=== PATIENT | male | born 1945 | race Caucasian/White ===

== ENCOUNTER 2021-01-03 15:29 | Outpatient (CLI) | payer MEDICARE, OTHER, SELFPAY ==
--- NOTE | 2021-01-03 15:45 | USCV_ITS ---
Jude Matson Age: 75 Gender: M : 1945 Exam Date: 01/03/2021 16:06 Ordering Phys: Floridalma Williamson MD ([email or web address]) Technologist: Kitty Keith [place]am [place] [facility] [place]: SOB BP: 148 / 88 HR: 63 Rhythm: Sinus Technical Quality: Adequate MEASUREMENTS (Male / Female) Normal Values 2D ECHO LV Diastolic Diameter PLAX 4.4 cm 4.2 - 5.9 / 3.9 - 5.3 cm LV Systolic Diameter PLAX 3.5 cm IVS Diastolic Thickness 1.6 cm 0.6 - 1.0 / 0.6 - 0.9 cm IVS Systolic Thickness 1.5 cm LVPW Diastolic Thickness 1.7 cm 0.6 - 1.0 / 0.6 - 0.9 cm LVPW Systolic Thickness 1.7 cm LVOT Diameter 2.0 cm LV Ejection Fraction 2D Teich 44.3 % LV Ejection Fraction MOD 2C 62.1 % LV Ejection Fraction 2C AL 63.1 % LA Diameter 3.4 cm LA Width 3.7 cm LA Height 5.6 cm RA Width 3.5 cm RA Height 5.7 cm Aorta at Sinotubular Diameter 2.9 cm DOPPLER AV Peak Velocity 201.0 cm/s LVOT Peak Velocity 96.0 cm/s AV Area Cont Eq vti 1.5 cm squared AV Area Cont Eq pk 1.6 cm squared MV Peak Velocity 126.0 cm/s MV Area PHT 4.2 cm squared Mitral E to A Ratio 0.8 MV E' Velocity 52.0 cm/s Mitral E to MV E' Ratio 13.4 Mitral E to LV E' Lateral Ratio 11.2 Mitral E to LV E' Septal Ratio 16.7 TR Peak Velocity 239.0 cm/s TR Peak Gradient 22.8 mmHg Right Atrial Pressure 3.0 mmHg Pulmonary Artery Systolic Pressu 25.8 mmHg PV Peak Velocity 97.0 cm/s RV Acceleration Time 0.1 s RV Ejection Time 0.3 s RV AcT/ET 0.3 FINDINGS Left Ventricle Moderately increased left ventricular cavity size. Moderately decreased left ventricular systolic function. Global left ventricular hypokinesis. Left ventricular ejection fraction is estimated at 44 %. Grade I/IV diastolic dysfunction (abnormal relaxation filling pattern), normal to mildly elevated filling pressures. Right Ventricle The right ventricle is normal in size and function. Right Atrium The right atrium is normal in size. Left Atrium Moderately increased left atrial size. Mitral Valve Moderately thickened mitral valve. No mitral valve stenosis. Mild-moderate mitral valve regurgitation. Aortic Valve Severe aortic valve calcification. Moderate aortic valve stenosis, mean gradient 8.7 mmHg, NEENA 1.5 cm2 trace aortic valve regurgitation. Tricuspid Valve Mild tricuspid valve regurgitation. Pulmonic Valve Structurally normal pulmonic valve without significant stenosis. There is no pulmonic regurgitation. Pericardium Normal pericardium without effusion. Aorta Normal ascending aorta dimension. CONCLUSIONS 1-Moderately increased left ventricular cavity size. Moderately decreased left ventricular systolic function. Global left ventricular hypokinesis. Left ventricular ejection fraction is estimated at 44 %. Grade I/IV diastolic dysfunction (abnormal relaxation filling pattern), normal to mildly elevated filling pressures. 2-Moderately increased left atrial size. 3-Severe aortic valve calcification. Moderate aortic valve stenosis, mean gradient 8.7 mmHg, NEENA 1.5 cm2 trace aortic valve regurgitation. 4-Moderately thickened mitral valve. No mitral valve stenosis. Mild-moderate mitral valve regurgitation. 5-There is no pericardial effusion. 6-Pulmonary artery systolic pressure is within normal limits. 7-Right atrial pressure is around 10 mm of mercury. 8-When compared to the prior echocardiogram dated 16 July 2018 there is a moderate aortic stenosis now, there is mild to moderate mitral and tricuspid valve regurgitation. Floridalma Williamson MD (Electronically Signed) Final Date: 10 January 2021 21:23 S
== END 2021-01-03 15:30 | disposition home or self-care (01) ==
LOC: RAD 15:31
PROVIDERS: PCP Physician Assistant Medical; Visit Provider Internal Medicine Cardiovascular Disease
DX: I08.0 Rheumatic disorders of both mitral and aortic valves (principal); R06.02 Shortness of breath; R01.1 Cardiac murmur, unspecified
CPT/HCPCS: 93306

== ENCOUNTER → 2022-11-30 09:49 | Outpatient (BNVA) | payer MEDICARE, OTHER, SELFPAY | PROVIDERS: PCP Physician Assistant Medical; Visit Provider Nurse Practitioner Family | DX: S68.121A Partial traumatic metacarpophalangeal amputation of left index finger, initial encounter (principal); X58.XXXA Exposure to other specified factors, initial encounter | CPT/HCPCS: 73140 ==

== ENCOUNTER 2025-02-20 09:40 | Inpatient (IN) | payer MEDICARE, SELFPAY ==
[2025-02-20] VITALS (9 sets, daily range): BP systolic 114–172; BP diastolic 81–122; PULSE 105–112; RESP 18–27; TEMP 36.6–36.8; O2SAT 92–96; BMI 35.2
--- NOTE | 2025-02-20 09:41 | XRR_ITS ---
PROCEDURE INFORMATION: Exam: XR Chest Exam date and time: 02/20/2025 9:57 AM Age: 79 years old Clinical indication: Pain; Angina pectoris; Additional info: Chest pain TECHNIQUE: Imaging protocol: Radiologic exam of the chest. Views: 1 view. COMPARISON: No relevant prior studies available. FINDINGS: Lungs: Bibasilar atelectasis. Pleural spaces: Unremarkable. No pleural effusion. No pneumothorax. Heart/Mediastinum: See Vasculature finding. Vasculature: Mild cardiomegaly and uncoiling of the thoracic aorta. Bones/joints: Unremarkable. XR/XR chest 1V portable [id number] IMPRESSION: Mild bibasilar opacities.
--- OUTSIDE RECORDS SUMMARY | 2025-02-20 09:46 | XMS_ITS | Encounter Summary ---
Author Organization [facility] Address [address] [place] [address] Care Team Providers Care Pig Sticker Name Role Phone Irma Gonzalez MD Primary Care Provider Encounter Details Date Type Department Care Team (Latest Contact Info) Description 03/30/1999 [facility]patient [facility] [address] [place] [address] Julian Valdez, DO [address] [place] [address] Backache, unspecified (Primary Dx); Cervicalgia; Nonallopathic lesion of thoracic region, not elsewhere classified; Nonallopathic lesion of upper extremities, not elsewhere classified Social History Tobacco Use Types Packs/Day Years Used Date Smoking Tobacco: Never Assessed Sex and Gender Information Value Date Recorded Sex Assigned at Not on file 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
--- OUTSIDE RECORDS SUMMARY | 2025-02-20 09:46 | XMS_ITS | Encounter Summary ---
Author Organization [facility] Address [address] [place] [address] Care Team Providers Care Air Pollution Auditor Name Role Phone Irma Gonzalez MD Primary Care Provider Encounter Details Date Type Department Care Team (Latest Contact Info) Description 12/12/[address] 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 Intramedullary dowels present. There is no fracture identified. No significant change is seen from previous x-rays of this antibiotic implant of the right knee. 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
--- OUTSIDE RECORDS SUMMARY | 2025-02-20 09:46 | XMS_ITS | Encounter Summary ---
Author Organization [facility] Address [address] [place] [address] Care Team Providers Care School Bus Driver Name Role Phone Irma Gonzalez MD Primary Care Provider [phone] Reason for Referral * Outpatient Services (Routine) - Closed Specialty Diagnoses / Procedures Referred By Contac t Referred To Contact Diagnoses Knee pain OA (osteoarthritis) of knee Procedures CT LOW EXT WO CONTRAST LEFT Moises Parsons MD [address] [place] [address] Phone: tel: fax: Referral ID Status Reason Start Date Expiration Date Visits Re quested Visits Authorized [id number] Closed 06/28/2012 07/29/2013 1 1 Encounter Details Date Type Department Care Team (Late st Contact Info) Description 06/28/2012 Ancillary Orders [facility] Orthopedics- 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 Exam: CT LOW EXT WO CONTRAST LEFT Date/Time of Exam: Jun 28, 2012 12:42:00 PM Reason For Exam: Pain in joint, lower leg. Technique: CT of the left lower extremity was performed without the administration of intravenous contrast. CT scan of the left lower extremity from the hip to the ankle was performed. This was performed for operative planning for placement of the DePuy TruMatch knee arthroplasty. Marked degenerative changes in the knee joint and a small knee joint effusion are noted. Mild degenerative changes in the hip are identified. No bony destructive lesion or fracture is identified. The soft tissues otherwise have an appropriate appearance. Impression: 1. Left lower extremity CT for surgical planning as above. [email or web address] - uploaded from [employer] - Narrative Procedure Note Fariha Cooley MD - 06/28/2012 IMPRESSION IMPRESSION: See report below. Exam: CT LOW EXT WO CONTRAST LEFT Date/Time of Exam: Jun 28, 2012 12:42:00 PM Reason For Exam: Pain in joint, lower leg. Technique: CT of the left lower extremity was performed without the administration of intravenous contrast. CT scan of the left lower extremity from the hip to the ankle was performed. This was performed for operative planning for placement of the DePuy TruMatch knee arthroplasty. Marked degenerative changes in the knee joint and a small knee joint effusion are noted. Mild degenerative changes in the hip are identified. No bony destructive lesion or fracture is identified. The soft tissues otherwise have an appropriate appearance. Impression: 1. Left lower extremity CT for surgical planning as above. [email or web address] - uploaded from [employer] - us Moises Parsons MD CT ORDERABLES Final Result documented in this encounter Visit Diagnoses Diagnosis Knee pain Pain in joint, lower leg OA (osteoarthritis) of knee Osteoarthrosis, unspecified whether generalized or localized, lower leg Knee pain- Primary Pain in joint, lower leg OA (osteoarthritis) of knee Osteoarthrosis, unspecified whether generalized or localized, lower leg documented in this encounter Care Teams School Bus Driver Relationship Specialty Start Date End Date Irma Gonzalez MD [address] [phone] PCP - General Family Practice 07/01/18 documented as of this encounter
--- OUTSIDE RECORDS SUMMARY | 2025-02-20 09:46 | XMS_ITS | Clinical Summary ---
Author Organization [facility] Address [address] [place] [address] Care Team Providers Care Vice President Payer Name Role Phone Michael Iglesias MD Primary Care Provider [phone] Allergies No known active allergies Medications albuterol sulfate HFA 90 mcg/actuation aerosol inhalerIndication s:Pulmonary emphysema, unspecified emphysema type Take 2 Puffs by inhalation every 6 hours as needed for Shortness of Breath or Wheezing. 8.5 Gram 7 4 Active fluticasone furoate-vilantero L (BREO ELLIPTA) 100-25 mcg/dose Disk with DeviceIndications :Pulmonary emphysema, unspecified emphysema type Take 1 Puff by inhalation daily. 1 Each 6 4 Active spironolactone (ALDACTONE) 25 mg tabletIndications :Acute congestive heart failure, unspecified heart failure type (CMS/HCC) Take 1 Tablet (25 mg) by mouth daily. 90 Tablet 3 4 Active doxycycline (MONODOX) 100 mg Capsule Take 100 mg by mouth daily. Active metoprolol tartrate (LOPRESSOR) 50 mg tabletIndications :Paroxysmal A-fib (CMS/HCC),Essenti al hypertension Take 1 Tablet (50 mg) by mouth 2 times daily. 180 Tablet 3 5 Active rivaroxaban (Xarelto) 20 mg TabletIndications :Paroxysmal A-fib (CMS/HCC) Take 1 Tablet (20 mg) by mouth daily. 90 Tablet 3 5 Active doxycycline hyclate (VIBRAMYCIN) 100 mg tabletIndications :Infected prosthetic knee joint, subsequent encounter,correction (current) use of antibiotics Take 1 Tablet (100 mg) by mouth daily. 90 Tablet 1 5 Active lisinopriL (PRINIVIL) 20 mg tabletIndications :Essential hypertension TAKE 1 TABLET BY MOUTH TWICE DAILY 200 Tablet 3 Active Hospital, Clinic, or Other Facility Administered Medication Ordered Dose Route Frequency Start Date End Date Status sodium chloride flush injection 10 mLIndications:Paroxy smal atrial fibrillation with rapid ventricular response (CMS/HCC) 10 mL IV SEE ADMIN INSTRUCTIONS 11/21/2024 Active sodium chloride flush injection 10 mLIndications:Paroxy smal atrial fibrillation with rapid ventricular response (CMS/HCC) 10 mL IV SEE ADMIN INSTRUCTIONS 11/21/2024 Active Active Problems Problem Noted Date Diagnosed Date Paroxysmal A-fib 12/01/2018 Infected prosthetic knee joint, subsequent encou nter 2018 Obesity (BMI 30.0-34.9) 11/20/2018 Anemia 11/20/2018 Onychomycosis 05/05/2015 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 06/12/2014 06/12/2014 Preoperative general physical examination 2012 Left TKA- DePuy TruMatch 08/07/2012 08/08/2012 Elevated PSA 04/20/2011 Essential hypertension GERD (gastroesophageal reflux disease) MSSA (methicillin susceptibl e Staphylococcus aureus) infection Resolved Problems Problem Noted Date Diagnosed Date Resolved Date Primary osteoarthritis of knee 02/24/2013 09/11/2019 Knee pain 06/20/2012 05/05/2015 Empyema 12/25/2011 10/14/2014 Joint pain 05/05/2015 Arthropathy, unspecified, site unspecified 05/05/2015 MRSA (methicillin resistant Staphylococcus aureus) 02/09/2016 Prostate cancer 11/21/2024 Encounters Date Type Department Care Team Description 01/14/2025 External Device Data [facility] ABSTRACTION Provider, Abstract 01/13/2025 External Device Data [facility] ABSTRACTION Provider, Abstract 12/30/2024 External Device Data [facility] ABSTRACTION Provider, Abstract 12/19/2024 Refill [facility] [address] [address] Sadie Peña FNP Essential hypertension 12/17/2024 Orders Only [facility] [address] [address] Sadie Peña FNP 12/16/2024 External Device Data [facility] ABSTRACTION Provider, Abstract 12/09/2024 External Device Data [facility] ABSTRACTION Provider, Abstract 12/09/2024 External Device Data [facility] ABSTRACTION Provider, Abstract 11/26/2024 External Device Data [facility] ABSTRACTION Provider, Abstract 11/25/2024 External Device Data [facility] ABSTRACTION Provider, Abstract 11/25/2024 External Device Data [facility] ABSTRACTION Provider, Abstract 11/25/2024 External Device Data [facility] ABSTRACTION Provider, Abstract 11/21/2024 9:15 AM CDT - 11/21/2024 11:59 PM CDT Hospital Encounter [facility] [place] [address] [facility] [address] [place] [address] Colt Zhu MD Discharge Disposition: Home or Self Care 11/21/2024 8:20 AM CDT Office Visit [address] [address] Sadie Peña FNP Medicare annual wellness visit, subsequent (Primary Dx); Pulmonary emphysema, unspecified emphysema type (CMS/HCC); Paroxysmal A-fib (CMS/HCC); Essential hypertension; Dyspnea on exertion; Infected prosthetic knee joint, subsequent encounter; 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; Paroxysmal atrial fibrillation with rapid ventricular response (CMS/HCC); History of prostate cancer from Last 3 Months Immunizations Immunization Administration Dates Next Due (TDVAX)(7 YRS UP) TETANUS AN D DIPHTHERIA TOXOIDS, ADSORBED (2 LF OF TETANUS TOXOID AND 2 LF OF DIPHTHERIA TOXOID), 0.5ML (PF), IM 04/21/2005 Influenza Vaccine Split 3+ Yrs PF IM 02/26/2013 Pneumococcal conjugate, unspecified formulation 01/08/2012 Family History Medical History Relation Name Comments Other Brother 1 Healthy Brother 2 Healthy Brother 3 Healthy Daughter 1 Healthy Daughter 2 Dementia Father Heart Disease Mother Irish Matson Healthy Sister 1 Healthy Sister 2 Healthy Son Relation Name Status Comments Brother 1 Construction ac cident Brother 2 Alive Brother 3 Alive Daughter 1 Alive Daughter 2 Alive Father (Age 89) Mother Irish Matson (Age 84) Sister 1 Alive Sister 2 Alive Son Alive Social History Tobacco Use Types Packs/Day Years Used Date Smoking Tobacco: Never Smokeless Tobacco: Never Tobacco Cessation:Counseling Given: No Alcohol Use Standard Drinks/Week Comments Yes 2 (1 standard drink = 0.6 oz pur e alcohol) Feeling Safe Answer Date Recorded Within the last year, have y ou been afraid of your partner or ex-partner? No 11/25/2019 Within the last year, have y ou been humiliated or emotionally abused in other ways by your partner or ex-partner? No Within the last year, have y ou been kicked, hit, slapped, or otherwise physically hurt by your partner or ex-partner? No 11/25/2019 Within the last year, have y ou been raped or forced to have any kind of sexual activity by your partner or ex-partner? No 11/25/2019 Social Connections Answer Date Recorded In a typical week, how many times do you talk on the phone with family, friends, or neighbors? More than three times a week 11/25/2019 How often do you get togethe r with friends or relatives? More than three times a week 11/25/2019 How often do you attend [facility] or advent services? More than 4 times per year 11/25/2019 Do you belong to any clubs o r organizations such as oriental orthodox groups, unions, fraternal or athletic groups, or school groups? No 11/25/2019 Attends Club or Organization Meetings Not on desmond e 11/25/2019 Marital Status Not on file 11/25/2019 Financial Resource Strain Answer Date R ecorded How hard is it for you to pa y for the very basics like food, housing, medical care, and heating? Not hard at all 05/24/2021 Food Insecurity Answer Date Recorded In the past 12 months, have you worried that your food would run out before you had money to buy more? Never true 05/24/2021 In the past 12 months, did y ou run out of food and didn't have money to buy more? Never true 05/24/2021 Transportation Needs Answer Date Record ed In the past 12 months, has l ack of transportation kept you from medical appointments or from getting medications? No 05/24/2021 Lack of Transportation (Non-Medical) Not on file 05/24/2021 Feeling Safe Answer Date Recorded Are you in a relationship wi th someone who hurts you emotionally and/or physically? 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 Gender Identity Not on file Sexual Orientation Not on file Last Filed Vital Signs Vital Sign Reading Time Taken Comments Blood Pressure 134/62 11/21/2024 8:12 AM CDT Pulse 125 11/21/2024 9:17 AM CDT Temperature 36.4 C (97.5 F) 11/21/2024 8:12 AM CDT Respiratory Rate 20 11/21/2024 8:12 AM CDT Oxygen Saturation 97% 11/21/2024 8:12 AM CDT Inhaled Oxygen Concentration - - Weight 111.4 kg (245 lb 8 oz) 11/21/2024 8:12 AM CDT Height 182.9 cm (6') 11/21/2024 8:12 AM CDT Body Mass Index 33.3 11/21/2024 8:12 AM CDT Plan of Treatment Upcoming Encounters Date Type Department Care Team (Late st Contact Info) Description 03/06/2025 1:00 PM ORTHODONTIST SMALL BUSINESS OWNER Office Visit [facility] [address] [place] [address] Maryanne Chaney, [place] [address] [facility] [address] [place] [address] 03/31/2025 9:40 AM ORTHODONTIST SMALL BUSINESS OWNER Office Visit [facility] [address] [facility] [address] [place] [address] Jelena Escoto, DIGITAL PERFORMANCE ANALYST [address] [facility] [address] [place] [address] 05/25/2025 8:00 AM ORTHODONTIST SMALL BUSINESS OWNER Office Visit [facility] [address] [place] [address] Michael Iglesias MD [address] [place] [phone] 05/26/2025 8:20 AM ORTHODONTIST SMALL BUSINESS OWNER Office Visit [facility] [address] [place] [address] Sadie Peña, [facility] [address] [place] [address] 11/23/2025 8:20 AM CDT Office Visit [facility] [address] [place] [address] Sadie Peña, [facility] [address] [place] [address] Health Maintenance Due Date Last Done Comments PNEUMOCOCCAL VACCINE 50+ YEA RS (1 of 2 - PCV) 11/26/1962 01/08/2012 ZOSTER VACCINE (1 of 2) 11/26/1993 DTAP/TDAP/TD VACCINES (1 - Tdap) 04/22/2005 04/21/19 06 RSV VACCINE (60+ or ) (1 - 1-dose 75+ series) 11/26/2018 INFLUENZA VACCINE (#1) 2024 3, 05/24/2021, 07/06/2020, Additional history exists Traditional Medicare (ACO) A nnual Wellness Visit 11/22/2025 11/21/2024, 11/20/2023, 11/16/2022, Additional history exists Medical Devices Implanted Type Area Fur Ironer Device Identifier Shelf Expiration Date Model / Serial / Lot Cement Palacos R+G [id number] - Sna Implanted:Qty: 2 on 08/07/2012 by Moiess Parsons MD Cement Left: Knee [employer] 01/23/2016 61-8227-790- 01 / NA / [id number] Cement Simplex Hvisc 6194-1-010 - [id number] Implanted:08/24 by Ramón Lopes MD (Quantity not on file) Cement Right: Knee [employer] [id number] 10/23/2020 6194-1-010 / / [id number] Cement Simplex Hvisc 6194-1-010 - [id number] Implanted:08/24 by Ramón Lopes MD (Quantity not on file) Cement Right: Knee [employer] [id number] 10/23/2020 6194- / / [id number] Comp Tib Sigma Cocr Sz4 1581-40-000 - [id number] Implanted:Qty: 1 on 08/07/2012 by Moises Parsons MD Knee Left: Knee J[employer] 01/24/2021 1581-40-000 / / [id number] Patella Dome 3peg 41mm 96-0103 - [id number] Implanted:Qty: 1 on 08/07/2012 by Moises Parsons MD Knee Left: Knee [employer] 03/26/2016 96-0103 / / [id number] Augment Fem Attune Dist Sz8 4mm 1547-08-001 - [id number] Implanted:Qty: 1 on 09/12/2019 by Ramón Lopes MD Knee Right: Knee [employer] [id number] 03/25/2029 [id number] / / [id number] Augment Fem Attune Dist Sz8 4mm 1547-08-001 - [id number] Implanted:Qty: 1 on 09/12/2019 by Ramón Lopes MD Knee Right: Knee [employer] [id number] 08/23/2028 [id number] / / [id number] Augment Fem Attune Post Sz8 4mm Rev 1549-08-001 - [id number] Implanted:Qty: 1 on 09/12/2019 by Ramón oLpes MD Knee Right: Knee [employer] [id number] 03/25/2029 [id number] / / [id number] Augment Fem Attune Post Sz8 4mm Rev 1549-08-001 - [id number] Implanted:Qty: 1 on 09/12/2019 by Ramón Lopes MD Knee Right: Knee [employer] [id number] 03/25/2029 [id number] / / [id number] Baseplate Tib Attune Rev Sz6 1506-60-006 - [id number] Implanted:Qty: 1 on 09/12/2019 by Ramón Lopes MD Knee Right: Knee [employer] [id number] 12/23/2028 1506-60-006 / / [id number] Comp Fem Attune Rev Sz8 Rt 1504-40-208 - [id number] Implanted:Qty: 1 on 09/12/2019 by Ramón Lopes MD Knee Right: Knee [employer] [id number] 12/23/2026 [id number] / / [id number] Sleeve Fem Attune Full Por 45mm 151 - [id number] Implanted:Qty: 1 on 09/12/2019 by Ramón Lopes MD Knee Right: Knee [employer] [id number] 07/23/2029 / / [id number] Sleeve Fem Attune Rev 40mm - [id number] Implanted:Qty: 1 on 09/12/2019 by Ramón Lopes MD Knee Right: Knee [employer] [id number] 07/23/2029 151 / / [id number] Stem Fem Attune 77x608sp Pf 1513-16-110 - [id number] Implanted:Qty: 1 on 09/12/2019 by Ramón Lopes MD Knee Right: Knee [employer] [id number] 07/23/2029 [id number] / / [id number] Stem Fem Attune 50z818wk Pf 1513-16-110 - [id number] Implanted:Qty: 1 on 09/12/2019 by Ramón Lopes MD Knee Right: Knee [employer] [id number] 08/23/2029 [id number] / / [id number] Tibial Insert Fixed Bearing Stabilized 4, 10mm Implanted:Qty: 1 on 08/07/2012 by Moises Parsons MD Other Left: Knee [employer] 01/25/2016 1581-24-110 / / [id number] Description:P.F.C SIGMA Femoral Posterior Stabilized Cemented Size 5 Left Implanted:Qty: 1 on 08/07/2012 by Moises Parsons MD Left: Knee [employer] 02/23/20211959-40-500 / / [id number] Sigma Femoral Posterior Stabilized Cemented Sz. 5 Implanted:Qty: 1 on 02/24/2013 by Moises Parsons MD Right: Knee [employer] 07/24/2022 REF: 1960-50-500 / / [id number] Revision Crs Rot 8x14mm Implanted:Qty: 1 on 09/12/2019 by Ramón Lopes MD Right: Knee 04/25/2022 [facility] - 1517-10-814 / / [id number] Explanted Type Area Fur Ironer Device Identifier Shelf Expiration Date Model / Serial / Lot Cement Palacos R+G [id number] - [id number] Implanted:Qty: 1 on 02/24/2013 Explanted:Qty: 1 on 11/29/2018 by Moises Parsons MD Cement Right: Knee [employer] 08/24/2016 65-3237-658- 01 / / [id number] Cement Palacos R+G 96-8808-440-01 - [id number] Implanted:Qty: 1 on 02/24/2013 Explanted:Qty: 1 on 09/12/2019 Cement Right: Knee [employer] 03/26/201628-1200-873- 01 / / [id number] Simplex Hi Viscosity Gent 6195-1-010 - [id number] Implanted:Qty: 3 on 11/29/2018 by Moises Parsons MD Explanted:Qty: 3 on 09/12/2019 Cement Right: Knee [employer] 12/24/2019 6195-1-010 / / [id number] Guide Pin Explanted:Qty: 1 on 08/07/2012 by Moises Parsons MD Knee Left: Knee SIGMA DX 11/23/2012 [id number] / NA / [id number] Comp Tib Sigma Cocr Sz5 1581-50-000 - [id number] Implanted:Qty: 1 on 02/24/2013 Explanted:Qty: 1 on 11/29/2018 by Moises Parsons MD Knee Right: Knee J[employer] 11/24/2021 1581-50-000 / / [id number] Ins Tib Sigma Fbs+ Sz5 96-2755 - [id number] Implanted:Qty: 1 on 06/12/2014 by Moises Parsons MD Explanted:Qty: 1 on 11/29/2018 by Moises Parsons MD Knee Right: Knee J[employer] 10/24/2017 [id number] / / [id number] Comp Fem Sigma Ps Recooperer Sz5 1960-50-500 - [id number] Implanted:Qty: 1 on 11/29/2018 by Moises Parsons MD Explanted:Qty: 1 on 09/12/2019 Knee Right: Knee J[employer] 09/22/2028 [id number] / / [id number] Ins Tib Sigma Fbs+ Sz4 96-2740 - [id number] Implanted:Qty: 1 on 06/12/2014 by Moises Parsons MD Explanted:Qty: 1 on 09/12/2019 Knee Knee J&J- [employer] 11/24/2017 385108 / / [id number] Stimulan Caso4 Kt 10ml 620-010 - [id number] Implanted:Qty: 1 on 11/29/2018 by Moises Parsons MD Explanted:Qty: 1 on 09/12/2019 Tissue Right: Knee [employer] 06/23/2020 620-010 / / [id number] P.F.C. Sigma Tibial Insert Fixed Bearing Stabilized Plus Implanted:Qty: 1 on 02/24/2013 by Moises Parsons MD Explanted:Qty: 1 on 06/12/2014 by Moises Parsons MD Right: Knee [employer] 01/24/2017 REF: 96-2755 / / [id number] Oval Dome Patella 3-Peg Implanted:Qty: 1 on 02/24/2013 by Moises Parsons MD Explanted:Qty: 1 on 11/29/2018 by Moises Parsons MD Right: Knee 07/24/2022 REF: 96-0103 / / [id number] Tibial Insert Roating Platform Stabilized Implanted:Qty: 1 on 11/29/2018 by Moises Parsons MD Explanted:Qty: 1 on 09/12/2019 Right: Knee 06/23/2020 96-2157 / / [id number] Procedures Procedure Name Priority Date/Time Associated Diagnosis Comments REFERENCE LAB PROCESSING FEE Routine 11/21/2024 9:26 AM CDT SOB (shortness of breath) from Last 3 Months Results * REFERENCE LAB PROCESSING FEE (11/21/2024 9:26 AM CDT) REFERENCE LAB SENDOUT Sent to Ref Lab 11/21/2024 12:02 PM CDT [facility] Other, specify BLOOD SPECIMEN / Unknown Collection / Unknown 11/21/2024 9:26 AM CDT 11/21/2024 10:34 AM CDT Colt Zhu MD CHEMISTRY ORDERABLES Fi nal Result [facility] CLIA # [id number] [address] [place] [address] from Last 3 Months Insurance MEDICARE PART A AND B [employer] SUPP * Guarantor: JACQUELINE MATSON Account Type Relation to Patient Date of Phone Billing Address Personal/Family [address] [place] [address] [facility] Commercial Advance Directives For more information, please contact: [phone] * Full Code (Latest Code Status on File) Date Activated Date Inactivated Comments 11/20/2023 8:29 AM Care Teams Vice President Payer Relationship Specialty Start Date End Date Michael Iglesias MD [address] [address] PCP - General Family Practice 11/16/22
--- OUTSIDE RECORDS SUMMARY | 2025-02-20 09:46 | XMS_ITS | Encounter Summary ---
Author Organization [facility] Address [address] [place] [address] Care Team Providers Care Arch Support Technician Name Role Phone Irma Gonzalez MD Primary Care Provider [phone]- [phone] Encounter Details Date Type Department Care Team (Latest Contact Info) Description 09/03/2000 Outpatient Historical [facility]- [address] [phone] Vince Ibarra DO NO ADDRESS ON FILE Urticaria, unspecified (Primary Dx) Social History Tobacco Use Types Packs/Day Years Used Date Smoking Tobacco: Never Assessed Sex and Gender Information Value Date Recorded Sex Assigned at Not on file Legal Sex 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
--- OUTSIDE RECORDS SUMMARY | 2025-02-20 09:46 | XMS_ITS | Clinical Summary ---
Author Organization [facility] [place] [facility] Address [address] [place] [address] Care Team Providers Care Recreational Counselor Name Role Phone Sadie Peña NP Primary Care Provider +1 [phone] Allergies No known active allergies Medications doxycycline monohydrate (MONODOX) 100 mg capsule Take 1 capsule (100 mg total) by mouth daily 5 Active lisinopriL (PRINIVIL,ZESTRI L) 20 mg tablet Take 1 tablet (20 mg total) by mouth 2 (two) times a day 5 Active metoprolol tartrate (LOPRESSOR) 25 mg immediate release tablet Take 1 tablet (25 mg total) by mouth 2 (two) times a day 5 Active Xarelto 20 mg tablet Take 1 tablet (20 mg total) by mouth daily 5 Active spironolactone (ALDACTONE) 25 mg tablet Take 1 tablet (25 mg total) by mouth daily 5 Active albuterol HFA (PROVENTIL HFA,VENTOLIN HFA,PROAIR HFA) 90 mcg/actuation inhaler Inhale 2 puffs every 6 (six) hours as needed for wheezing 1 each 3 5 Active doxycycline 100 mg tablet Take 1 Tablet (100 mg) by mouth daily. 5 Active Breztri Aerosphere 160-9-4.8 mcg/actuation inhaler Inhale 2 puffs 2 (two) times a day Rinse mouth after use 3 each 11 5 Active Active Problems Problem Noted Date Diagnosed Date Snoring 12/10/2024 Assessment & Plan (12/10/2024 2:44 PM CDT): The patient presents with snoring and excessive daytime hypersomnia. I did recommend an in-lab nocturnal polysomnogram with a split night protocol if necessary and no MSLT. The patient lives [place] near [facility] and wants to seek a sleep physician in that area. I did recommend that he contact his primary care provider for a referral to a sleep physician in that area. I did tell him I would be happy to follow him has a sleep patient if he wants to continue to see me. 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 He will follow up with me on a PRN basis. Essential hypertension 10/14/2024 GERD (gastroesophageal reflux disease) Prostate cancer 10/14/2024 Paroxysmal A-fib 12/01/2018 Anemia 11/20/2018 Onychomycosis 05/05/2015 Osteoarthritis of left knee 08/08/2012 Encounters Date Type Department Care Team Description 12/10/2024 2:30 PM CDT Office Visit [facility] [address] [place] [phone] Jesus Manuel Michelle MD Snoring (Primary Dx) 12/10/2024 1:45 PM CDT Office Visit [facility] [address] [place] [address] [place] [phone] Colt Zhu MD SOB (shortness of breath) (Primary Dx); Snoring; Non-smoker; Pulmonary emphysema, unspecified emphysema type (HCC) 12/10/2024 9:15 AM CDT - 12/10/2024 11:59 PM CDT Hospital Encounter [facility] [address] [place] [phone] SOB (shortness of breath) Discharge Disposition: Discharge to home or self care 12/04/2024 Orders Only [facility] [address] [place] [phone] Colt Zhu MD 11/25/2024 Orders Only [facility] [address] [facility] [address] [place] [address] Colt Zhu MD from Last 3 Months Surgical History Surgery Date Site/Laterality Comments TOTAL KNEE ARTHROPLASTY 03/26/2019 - 03/25/2020 Right TOTAL KNEE ARTHROPLASTY Left BACK SURGERY 03/26/1969 - 03/25/1970 PROSTATE SURGERY Medical History Medical History Date Comments Atrial fibrillation (HCC) Chronic anticoagulation Hypertension Non Hodgkin's lymphoma (HCC) Prostate CA MSSA (methicillin susceptible Staphylococcus aur eus) GERD (gastroesophageal reflux disease) Arthritis Obesity Social History Tobacco Use Types Packs/Day Years Used Date Smoking Tobacco: Never Smokeless Tobacco: Never Tobacco Cessation:Counseling Given: Not Answered Personal Safety Answer Date Recorded Have you ever been in or are you currently in a harmful physical or emotional relationship or is someone making you feel afraid or unsafe? Denies 10/14/2024 Sex and Gender Information Value Date Recorded Sex Assigned at Not on file Legal Sex Male 8:35 AM CDT Gender Identity Not on file Sexual Orientation Not on file Last Filed Vital Signs Vital Sign Reading Time Taken Comments Blood Pressure 113/76 12/10/2024 2:00 PM CDT Pulse 131 12/10/2024 2:00 PM CDT Temperature 35.9 C (96.7 F) 12/10/2024 2:00 PM CDT Respiratory Rate 18 12/10/2024 2:00 PM CDT Oxygen Saturation 97% 12/10/2024 2:00 PM CDT Inhaled Oxygen Concentration - - Weight 112 kg (247 lb) 12/10/2024 2:00 PM CDT Height 182.9 cm (6') 12/10/2024 2:00 PM CDT Body Mass Index 33.5 12/10/2024 2:00 PM CDT Plan of Treatment Health Maintenance Due Date Last Done Comments Depression Screening 1945 Fall Risk Assessment 1945 Hepatitis B Screening 11/26/1961 Zoster Vaccine (1 of 2) 11/26/1993 DTaP/Tdap/Td Vaccine (1 - Tdap) 04/22/2005 6 Well Visit 65+ 11/26/2008 Pneumococcal vaccine 65+ (2 of 2 - PPSV23, PCV20, or PCV21) 03/04/2012 01/08/2012 Influenza Vaccine (#1) 2024 02/26/2013 Procedures Procedure Name Priority Date/Time Associated Diagnosis Comments PULMONARY FUNCTION TEST (PFT) Routine 12/10/2024 10:30 AM CDT SOB (shortness of breath) IMMUNOGLOBULIN E Routine 12/04/2024 10:0 6 AM CDT CLIENT EDUCATION TRACKING Routine 12/04/2024 10:06 AM CDT [id number] Routine 12/04/2024 1 0:06 AM CDT CBC WITH AUTO DIFFERENTIAL Routine 12/04/2024 10:06 AM CDT BASIC METABOLIC PANEL Routine 12/04/2024 10:06 AM CDT CLIENT EDUCATION TRACKING Routine 11/25/2024 7:24 PM CDT PRO B-TYPE NATRIURETIC PEPTIDE Routine 11/25/2024 7:24 PM CDT from Last 3 Months Results * Pulmonary Function Test - (12/10/2024 10:30 AM CDT) FVC POST 2.85 L 12/10/2024 11:12 AM CDT [facility] FEV1 POST 1.78 L 12/10/2024 11:12 AM CDT [facility] [id number] 62.64 % 12/10/2024 11:12 AM CDT [facility] HGZ00-16% POST 0.73 L/s 12/10/2024 11:12 AM CDT [facility] PEF POST 7.02 L/s 12/10/2024 11:12 AM CDT [facility] DLCOc SB 17.22 ml/(min*mm Hg) 12/10/2024 11:12 AM CDT [facility] DLCOc SB 17.47 ml/(min*mm Hg) 12/10/2024 11:12 AM CDT [facility] DLCO/VA PRE 3.87 ml/(min*mm Hg*L) 12/10/2024 11:12 AM CDT [facility] VA 4.46 L 12/10/2024 11:12 AM CDT [facility] TLC PRE 4.45 L 12/10/2024 11:12 AM CDT [facility] VC PRE 2.95 L 12/10/2024 11:12 AM CDT [facility] IC PRE 2.35 L 12/10/2024 11:12 AM CDT [facility] FRC PL PRE 2.08 L 12/10/2024 11:12 AM CDT [facility] ERV PRE 0.58 L 12/10/2024 11:12 AM CDT [facility] RV PRE 1.50 L 12/10/2024 11:12 AM CDT [facility] RAW PRE 6.80 cmH2O*s/L 12/10/2024 11:12 AM CDT [facility] VTG 3.10 L 12/10/2024 11:12 AM CDT [facility] FVC PRE 2.95 L 12/10/2024 11:12 AM CDT [facility] FEV1 PRE 1.69 L 12/10/2024 11:12 AM T [facility] [id number] 57.14 % 12/10/2024 11:12 AM CDT [facility] VIM18-74% PRE 0.47 L/s 12/10/2024 11:12 AM T [facility] PEF PRE 4.43 L/s 12/10/2024 11:12 AM T [facility] Anatomical Region Laterality Modality PFT 12/10/2024 9:47 AM CDT Impressions 12/11/2024 8:13 AM CDT 1. Irod-pd-tmyfezac obstructive ventilatory limitation with concomitant severe restriction 2. Pcvd-kt-oaejnivt diffusion impairment 3. During a 6 minute walk test the patient ambulated 830 ft on ambient air with lowest oxygen saturation of 99% Electronically signed by Valente Vidal MD Pulmonary & Critical Care Narrative 12/11/2024 8:13 AM CDT PULMONARY FUNCTION TESTS Jude Matson 79 y.o. 12/11/2024 INTERPRETATION Please see technologist's comments mentioned in attached results report. SPIROMETRY: Pre bronchodilator FEV1 is 56 % predicted, FVC is 71 % predicted, FEV1/FVC is 0.57 Bronchodilator response: No Inspection of the patient's flow-volume loops shows: Scooping of the expiratory limb. Otherwise normal configuration of the inspiratory and expiratory limbs. LUNG VOLUMES: Lung volumes by body plethysmography: TLC is 59 % predicted, RV is 51 % predicted DLCO: Unadjusted for hemoglobin and carboxyhemoglobin DLCO is 64 % predicted. Adjusted for hemoglobin DLCO is 65% predicted Colt Zhu MD PFT ORDERABLES Final Result * Client Education Tracking (12/04/2024 10:06 AM CDT) Client Education Tracking [facility] Comment: The Requisition we received did not include a [facility] account number. To prevent delays in testing and processing of your orders please provide the following information with every order submitted: [facility] account number and account name Client address Client phone and fax number NPI number of ordering physician along with the physician name. 11/22/2024 8:1 5 AM CDT Narrative [facility] - 12/04/2024 10:06 AM CDT FASTING: NO Colt Zhu MD LAB BLOOD ORDERABLES Final R esult [facility] [address] [place] [address] * IgE, quantitative, serum - immunoglobulin E (12/04/2024 10:06 AM CDT) Immunoglobulin E 81 <AB=491 kU/L [facility] Comment: NO COLLECTION DATE RECEIVED. WE HAVE USED THE DATE THE SPECIMEN WAS RECEIVED BY THIS LABORATORY THE COLLECTION DATE. IF THIS IS INCORRECT, PLEASE CONTACT CLIENT SERVICES. PHONE NUMBER: [phone] 11/22/2024 8:1 5 AM CDT Narrative [facility] - 12/04/2024 10:06 AM CDT FASTING: NO us Colt Zhu MD LAB BLOOD ORDERABLES Final R esult [facility] [address] [phone] * (ABNORMAL) CBC with auto differential (12/04/2024 10:06 AM CDT) WBC 6.1 3.8 - 10.8 Thousand/u L [facility] RBC, POC 3.95(L) 4.20 - 5.80 Million/uL [facility] Hgb 14.1 13.2 - 17.1 g/dL [facility] Hct 43.3 38.5 - 50.0 % [facility] MCV 109.6(H) 80.0 - 100.0 fL [facility] MCH 35.7(H) 27.0 - 33.0 pg [facility] MCHC 32.6 32.0 - 36.0 g/dL [facility] Comment: For adults, a slight decrease in the calculated MCHC value (in the range of 30 to 32 g/dL) is most likely not clinically significant; however, it should be interpreted with caution in correlation with other red cell parameters and the patient's clinical condition. Rdw 12.3 11.0 - 15.0 % [facility] Platelets 279 140 - 400 Thousand/u L [facility] MPV 11.8 7.5 - 12.5 fL [facility] Neutrophils, abs 3,800 1,500 - 7,800 cells/uL [facility] Lymphocytes, abs 1,074 850 - 3,900 cells/uL [facility] Monocyte abs 738 200 - 950 cells/uL [facility] Eosinophils, abs 427 15 - 500 cells/uL [facility] Basophils, abs 61 0 - 200 cells/uL [facility] Neutrophils 62.3 % [facility] Lymphocyte pct 17.6 % [facility] Monocytes 12.1 % [facility] Eosinophils 7.0 % [facility] Basophils 1.0 % [facility] 11/22/2024 8:1 5 AM CDT Narrative [facility] - 12/04/2024 10:06 AM CDT FASTING: NO Colt Zhu MD LAB BLOOD ORDERABLES Final R esult Performing Organization Address [facility] Co de Phone Number [facility] [address] [place] [address] * [id number] (12/04/2024 10:06 AM CDT) alpha-1 antitrypsin 125 83 - 199 mg/dL [facility] 11/22/2024 8:1 5 AM CDT Narrative [facility] - 12/04/2024 10:06 AM CDT FASTING: NO Colt Zhu MD LAB BLOOD ORDERABLES Final R esult Performing Organization Address [facility] Co de Phone Number HERMAN [facility] [address] [place] [address] * Basic metabolic panel (12/04/2024 10:06 AM CDT) Glucose 87 65 - 139 mg/dL [facility] Comment: Non-fasting reference interval BUN 25 7 - 25 mg/dL [facility] Creatinine 0.95 0.70 - 1.22 mg/dL [facility] eGFR 81 > OR = 60 mL/min/1.7 3m2 [facility] BUN/creat ratio SEE NOTE: 6 - 22 (calc) [facility] Comment: Not Reported: BUN and Creatinine are within reference range. Sodium 136 135 - 146 mmol/L [facility] Potassium, pl 5.0 3.5 - 5.3 mmol/L [facility] Chloride 105 98 - 110 mmol/L [facility] CO2 22 20 - 32 mmol/L [facility] Calcium 9.3 8.6 - 10.3 mg/dL [facility] 11/22/2024 8:1 5 AM CDT Narrative [facility] - 12/04/2024 10:06 AM CDT FASTING: NO Colt Zhu MD LAB BLOOD ORDERABLES Final R esult Performing Organization Address [facility] Co de Phone Number [facility] [address] [place] [address] * Client Education Tracking (11/25/2024 7:24 PM CDT) Client Education Tracking [facility] Comment: The Requisition we received did not include a [facility] account number. To prevent delays in testing and processing of your orders please provide the following information with every order submitted: [facility] account number and account name Client address Client phone and fax number NPI number of ordering physician along with the physician name. NO COLLECTION DATE RECEIVED. WE HAVE USED THE DATE THE SPECIMEN WAS RECEIVED BY THIS LABORATORY THE COLLECTION DATE. IF THIS IS INCORRECT, PLEASE CONTACT CLIENT SERVICES. PHONE NUMBER: [phone] 11/22/2024 7:3 7 AM CDT Narrative [facility] - 11/25/2024 7:24 PM CDT FASTING: UNKNOWN Colt Zhu MD LAB BLOOD ORDERABLES Final R esult Performing Organization Address [facility] Co de Phone Number [facility] [address] [place] [address] * (ABNORMAL) Pro B-type natriuretic peptide (11/25/2024 7:24 PM CDT) NT PROBNP 912(H) <450 pg/mL [facility] 11/22/2024 7:3 7 AM CDT Narrative [facility] - 11/25/2024 7:24 PM CDT FASTING: UNKNOWN Colt Zhu MD LAB BLOOD ORDERABLES Final R esult [facility] [address] [phone] from Last [address] [place] [address] MEDICARE DORSEY MEDICARE SUPPLEMENT Care Teams Recreational Counselor Relationship Specialty Start Date End Date Sadie Peña NP [address] [phone] PCP - General Nurse Practitioner 09/30/24
--- OUTSIDE RECORDS SUMMARY | 2025-02-20 09:46 | XMS_ITS | Encounter Summary ---
Author Organization [facility] Address [address] [place] [address] Care Team Providers Care Group Burner Machine Name Role Phone Irma Gonzalez MD Primary Care Provider [phone]- [phone] Encounter Details Date Type Department Care Team (Latest Contact Info) Description 04/06/2003 Outpatient Historical [facility]- [address] [phone] Jonathan Patel MD [address] [phone] ACUTE URI NOS (Primary Dx) Social History Tobacco Use Types Packs/Day Years Used Date Smoking Tobacco: Never Assessed Sex and Gender Information Value Date Recorded Sex Assigned at Not on file 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
--- OUTSIDE RECORDS SUMMARY | 2025-02-20 09:46 | XMS_ITS | Encounter Summary ---
Author Organization [facility] Address [address] [place] [address] Care Team Providers Care Certified Scrub Tech Name Role Phone Irma Gonzalez MD Primary Care Provider Encounter Details Date Type Department Care Team (Latest Contact Info) Description 06/08/1999 Outpatient Historical [facility]- [address] [phone] Jonathan Patel MD [address] [phone] Cervicalgia (Primary Dx); Spasm of muscle Social History Tobacco Use Types Packs/Day Years Used Date Smoking Tobacco: Never Assessed Sex and Gender Information Value Date Recorded Sex Assigned at Not on file 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
--- OUTSIDE RECORDS SUMMARY | 2025-02-20 09:46 | XMS_ITS | Encounter Summary ---
Author Organization [facility] Address [address] [place] [address] Care Team Providers Care Stove Installer Name Role Phone Irma Gonzalez MD Primary Care Provider [phone]- [phone] Encounter Details Date Type Department Care Team (Latest Contact Info) Description 09/08/2003 Outpatient Historical [facility]- [address] [phone] Farhat Stokes PA NO ADDRESS ON FILE Open wound of forearm (Primary Dx) Social History Tobacco Use Types Packs/Day Years Used Date Smoking Tobacco: Never Assessed Sex and Gender Information Value Date Recorded Sex Assigned at Not on file 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
--- OUTSIDE RECORDS SUMMARY | 2025-02-20 09:46 | XMS_ITS | Encounter Summary ---
Author Organization [facility] Address [address] [place] [address] Care Team Providers Care Operations Officer Afloat Name Role Phone Irma Gonzalez MD Primary Care Provider [phone]- [phone] Encounter Details Date Type Department Care Team (Latest Contact Info) Description 11/16/1999 Outpatient Historical [facility]- [facility] [address] [place] [phone] Jonathan Patel MD [address] [phone] Special screening for malignant neoplasm of prostate (Primary Dx) Social History Tobacco Use Types Packs/Day Years Used Date Smoking Tobacco: Never Assessed Sex and Gender Information Value Date Recorded Sex Assigned at Not on file 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
--- OUTSIDE RECORDS SUMMARY | 2025-02-20 09:46 | XMS_ITS | Clinical Summary ---
Author Organization [facility] Address [address] [place] [address] Care Team Providers Care Publications Manager Name Role Phone Irma Gonzalez MD Primary Care Provider Allergies No known active allergies Medications rivaroxaban (XARELTO) 20 mg Tablet Take 20 mg by mouth daily. Active docusate sodium (Colace) 100 mg capsule Take 1 Capsule (100 mg) by mouth 2 times daily. 60 Capsule 0 Active lisinopriL (PRINIVIL) 5 mg tabletIndications :Essential hypertension TAKE ONE TABLET BY MOUTH DAILY 90 Tablet 1 1 Active doxycycline hyclate (VIBRAMYCIN) 100 mg capsule Take 100 mg by mouth 2 times daily. Active acetaminophen (TYLENOL) 500 mg tablet Take 500 mg by mouth every 6 hours as needed. Active gabapentin (NEURONTIN) 100 mg capsule Take 1 Capsule (100 mg) by mouth 3 times daily. 90 Capsule 1 1 Active Active Problems Problem Noted Date Diagnosed Date Paroxysmal A-fib 12/01/2018 Infected prosthetic knee joint, subsequent encou nter 2018 Obesity (BMI 30.0-34.9) 11/20/2018 Anemia 11/20/2018 Onychomycosis 05/05/2015 Bilateral infected prostheti c knee joint S/p I&D poly xchge 06/12/2014 06/12/2014 Preoperative general physical examination 2012 Left TKA- DePuy TruMatch 08/07/2012 08/08/2012 Elevated PSA 04/20/2011 Prostate cancer Essential hypertension GERD (gastroesophageal reflux disease) MSSA (methicillin susceptibl e Staphylococcus aureus) infection Resolved Problems Problem Noted Date Diagnosed Date Resolved Date Primary osteoarthritis of knee 02/24/2013 09/11/2019 Knee pain 06/20/2012 05/05/2015 Empyema 12/25/2011 10/14/2014 Arthropathy, unspecified, site unspecified 05/05/2015 Joint pain 05/05/2015 MRSA (methicillin resistant Staphylococcus aureus) 02/09/2016 Immunizations Immunization Administration Dates Next Due (TDVAX)(7 YRS UP) TETANUS AN D DIPHTHERIA TOXOIDS, ADSORBED (2 LF OF TETANUS TOXOID AND 2 LF OF DIPHTHERIA TOXOID), 0.5ML (PF), IM 04/21/2005 Influenza Vaccine Split 3+ Yrs PF IM 02/26/2013 Pneumococcal conjugate, unspecified formulation 01/08/2012 Family History Medical History Relation Name Comments Healthy Brother 1 Healthy Brother 2 Other Brother 3 Healthy Daughter 1 Healthy Daughter 2 Dementia Father Heart Disease Mother Irish Matson Healthy Sister 1 Healthy Sister 2 Healthy Son Relation Name Status Comments Brother 1 Alive Brother 2 Alive Brother 3 Construction ac cident Daughter 1 Alive Daughter 2 Alive Father (Age 89) Mother Irish Matson (Age 84) Sister 1 Alive Sister 2 Alive Son Alive Social History Tobacco Use Types Packs/Day Years Used Date Smoking Tobacco: Never Smokeless Tobacco: Never Alcohol Use Standard Drinks/Week Comments Yes 7 (1 standard drink = 0.6 oz pur [...] week 11/25/2019 How often do you attend chur or moravian services? More than 4 times per year 11/25/2019 Do you belong to any clubs o r organizations such as confucianist groups, unions, fraternal or athletic groups, or school groups? No 11/25/2019 Attends Club or Organization Meetings Not on desmond e 11/25/2019 Marital Status Not on file 11/25/2019 Financial Resource Strain Answer Date R ecorded How hard is it for you to pa y for the very basics like food, housing, medical care, and heating? Not hard at all 11/25/2019 Food Insecurity Answer Date Recorded Within the past 12 months, y ou worried that your food would run out before you got the money to buy more. Never true 11/25/19 20 Within the past 12 months, t he food you bought just didn't last and you didn't have money to get more. Never true 11/25/2019 Transportation Needs Answer Date Record ed In the past 12 months, has l ack of transportation kept you from medical appointments or from getting medications? No 03/2019 In the past 12 months, has l ack of transportation kept you from meetings, work, or from getting things needed for daily living? No 11/25/2019 Education Answer Date Recorded What is the highest level of school you have completed or the highest degree you have received? 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 Gender Identity Not on file Sexual Orientation Not on file Occupation Industry Job Start Date Job End Date Not on file Not on file Not on file Not on file Not on file Not on file Not on file Not on file Last Filed Vital Signs Vital Sign Reading Time Taken Comments Blood Pressure 133/80 09/15/2020 9:54 AM CDT Pulse 66 09/15/2020 9:54 AM CDT Temperature 36.7 C (98 F) 07/09/2020 7:48 AM CDT Respiratory Rate 22 07/09/2020 7:48 AM CDT Oxygen Saturation 97% 07/09/2020 7:48 AM CDT Inhaled Oxygen Concentration - - Weight 106.6 kg (235 lb) 09/15/2020 9:54 AM CDT Height 182.9 cm (6') 09/15/2020 9:54 AM CDT Body Mass Index 31.87 09/15/2020 9:54 AM CDT Plan of Treatment Health Maintenance Due Date Last Done Comments DIABETES ANNUAL FOOT EXAM 11/26/1961 DIABETES ANNUAL RETINAL EXAM 11/26/1961 DIABETES HBA1C Q 6 MONTHS 11/26/1961 DIABETES MICROALBUMIN ANNUAL SCREEN 11/26/1961 PNEUMOCOCCAL VACCINE 50+ YEA RS (1 of 2 - PCV) 11/26/1962 01/08/2012 Traditional Medicare (ACO) A nnual Wellness Visit 11/26/1962 ZOSTER VACCINE (1 of 2) 11/26/1962 DTAP/TDAP/TD VACCINES (1 - Tdap) 04/22/2005 04/21/19 06 RSV VACCINE (60+ or ) (1 - 1-dose 75+ series) 11/26/2018 LDL CHOLESTEROL ANNUAL 11/24/2020 0, 08/17/2017, 04/04/2011 INFLUENZA VACCINE (#1) 2024 1, 07/02/2018, 02/26/2013 Medical Devices Implanted Type Area Car Driver Device Identifier Shelf Expiration Date Model / Serial / Lot Cement Palacos R+G [id number] - Sna Implanted:Qty: 2 on 08/07/2012 by Moises Parsons MD at [facility] Cement Left: Knee [employer] 01/23/2016 [id number]- 01 / NA / [id number] Cement Simplex Hvisc 6194-1-010 - [id number] Implanted:08/24 by Ramón Lopes MD at [facility] (Quantity not on file) Cement Right: Knee DARIA[employer] [id number] 10/23/2020 6194-1-010 / / [id number] Cement Simplex Hvisc 6194-1-010 - [id number] Implanted:08/24 by Ramón Lopes MD at [facility] (Quantity not on file) Cement Right: Knee [employer] [id number] 10/23/2020 6194-1-010 / / [id number] Comp Tib Sigma Cocr Sz4 1581-40-000 - [id number] Implanted:Qty: 1 on 08/07/2012 by Moises Parsons MD at [facility] Knee Left: Knee J[employer]J- [employer] 01/24/2021 158-40-000 / / [id number] Patella Dome 3peg 41mm 96-3 - [id number] Implanted:Qty: 1 on 08/07/2012 by Moises Parsons MD at [facility] Knee Left: Knee J[employer] 03/26/2016 96-0103 / / [id number] Sleeve Fem Attune Rev 40mm 1511-01-204 - [id number] Implanted:Qty: 1 on 09/12/2019 by Ramón Lopes MD at [facility] Knee Right: Knee [employer] [id number] 07/23/2029 1511-01-204 / / [id number] Comp Fem Attune Rev Sz8 Rt 1504-40-208 - [id number] Implanted:Qty: 1 on 09/12/2019 by Ramón Lopes MD at [facility] Knee Right: Knee [employer] [id number] 12/23/2026 [id number] / / [id number] Stem Fem Attune 92g146gr Pf 1513-16-110 - [id number] Implanted:Qty: 1 on 09/12/2019 by Ramón Lopes MD at [facility] Knee Right: Knee [employer] [id number] 07/23/2029 [id number] / / [id number] Augment Fem Attune Post Sz8 4mm Rev 1549-08-001 - [id number] Implanted:Qty: 1 on 09/12/2019 by Ramón Lopes MD at [facility] Knee Right: Knee [employer] [id number] 03/25/2029 [id number] / / [id number] Baseplate Tib Attune Rev Sz6 1506-60-006 - [id number] Implanted:Qty: 1 on 09/12/2019 by Ramón Lopes MD at [facility] Knee Right: Knee [employer] [id number] 12/23/2028 1506-60-006 / / [id number] Sleeve Fem Attune Full Por 45mm 151 - [id number] Implanted:Qty: 1 on 09/12/2019 by Ramón Lopes MD at [facility] Knee Right: Knee [employer] [id number] 07/23/2029 151 / / [id number] Augment Fem Attune Dist Sz8 4mm 1547-08001 - [id number] Implanted:Qty: 1 on 09/12/2019 by Ramón Lopes MD at [facility] Knee Right: Knee [employer] [id number] 08/23/2028 [id number] / / [id number] Stem Fem Attune 10w981pb Pf 1513-16-110 - [id number] Implanted:Qty: 1 on 09/12/2019 by Ramón Lopes MD at [facility] Knee Right: Knee [employer] [id number] 08/23/2029 [id number] / / [id number] Augment Fem Attune Dist Sz8 4mm 1547 - [id number] Implanted:Qty: 1 on 09/12/2019 by Ramón Lopes MD at [facility] Knee Right: Knee [employer] [id number] 03/25/2029 [id number] / / [id number] Augment Fem Attune Post Sz8 4mm Rev 1549- - [id number] Implanted:Qty: 1 on 09/12/2019 by Ramón Lopes MD at [facility] Knee Right: Knee [employer] [id number] 03/25/2029 [id number] / / [id number] Tibial Insert Fixed Bearing Stabilized 4, 10mm Implanted:Qty: 1 on 08/07/2012 by Moises Parsons MD at [facility] Other Left: Knee [employer] 01/25/2016 1581-24-110 / / [id number] Description:P.F.C SIGMA Femoral Posterior Stabilized Cemented Size 5 Left Implanted:Qty: 1 on 08/07/2012 by Moises Parsons MD at [facility] Left: Knee [employer] 02/23/2021 1960-40-500 / / [id number] Sigma Femoral Posterior Stabilized Cemented Sz. 5 Implanted:Qty: 1 on 02/24/2013 by Moises Parsons MD at [facility] Right: Knee [employer] 07/24/2022 REF: 1960-50-500 / / [id number] Revision Crs Rot 8x14mm Implanted:Qty: 1 on 09/12/2019 by Ramón Lopes MD at [facility] Right: Knee 04/25/2022 DEPUY - 1517-10-814 / / [id number] Explanted Type Area Car Driver Device Identifier Shelf Expiration Date Model / Serial / Lot Cement Palacos R+G [id number] - [id number] Implanted:Qty: 1 on 02/24/2013 at [facility] Explanted:Qty: 1 on 11/29/2018 by Moises Parsons MD at [facility] Cement Right: Knee [employer] 08/24/201643-3788-772- 01 / / [id number] Cement Palacos R+G [id number] - [id number] Implanted:Qty: 1 on 02/24/2013 at [facility] Explanted:Qty: 1 on 09/12/2019 at [facility] Cement Right: Knee [employer] 03/26/201667-0730-513- 01 / / [id number] Simplex Hi Viscosity Gent 6195-1-010 - [id number] Implanted:Qty: 3 on 11/29/2018 by Moises Parsons MD at [facility] Explanted:Qty: 3 on 09/12/2019 at [facility] Cement Right: Knee [employer] 12/24/2019 6195-1-010 / / [id number] Guide Pin Explanted:Qty: 1 on 08/07/2012 by Moises Parsons MD at [facility] Knee Left: Knee SIGMA DX 11/23/2012 614296 / NA / [id number] Comp Tib Sigma Cocr Sz5 1581-50-000 - [id number] Implanted:Qty: 1 on 02/24/2013 at [facility] Explanted:Qty: 1 on 11/29/2018 by Moises Parsons MD at [facility] Knee Right: Knee J[employer]J- [employer] 11/24/2021 1581-50-000 / / [id number] Ins Tib Sigma Fbs+ Sz5 96-2755 - [id number] Implanted:Qty: 1 on 06/12/2014 by Moises Parsons MD at [facility] Explanted:Qty: 1 on 11/29/2018 by Moises Parsons MD at [facility] Knee Right: Knee J[employer]- [employer] 10/24/2017 891468 / / [id number] Ins Tib Sigma Fbs+ Sz4 96-1179 - [id number] Implanted:Qty: 1 on 06/12/2014 by Moises Parsons MD at [facility] Explanted:Qty: 1 on 09/12/2019 at [facility] Knee Knee J[employer]J- [employer] 11/24/2017 750273 / / [id number] Comp Fem Sigma Ps Chucker Sz5 1960-50-500 - [id number] Implanted:Qty: 1 on 11/29/2018 by Moises Parsons MD at [facility] Explanted:Qty: 1 on 09/12/2019 at [facility] Knee Right: Knee J[employer]J- [employer] 09/22/2028 [id number] / / [id number] Stimulan Caso4 Kt 10ml 620-010 - [id number] Implanted:Qty: 1 on 11/29/2018 by Moises Parsons MD at [facility] Explanted:Qty: 1 on 09/12/2019 at [facility] Tissue Right: Knee [employer] 06/23/2020 620-010 / / [id number] P.F.C. Sigma Tibial Insert Fixed Bearing Stabilized Plus Implanted:Qty: 1 on 02/24/2013 by Moises Parsons MD at [facility] Explanted:Qty: 1 on 06/12/2014 by Moises Parsons MD at [facility] Right: Knee [employer] 01/24/2017 REF: 96-2755 / / [id number] Oval Dome Patella 3-Peg Implanted:Qty: 1 on 02/24/2013 by Moises Parsons MD at [facility] Explanted:Qty: 1 on 11/29/2018 by Moises Parsons MD at [facility] Right: Knee DEPUY ORTHO 07/24/2022 REF: 96-0103 / / [id number] Tibial Insert Roating Platform Stabilized Implanted:Qty: 1 on 11/29/2018 by Moises Parsons MD at [facility] Explanted:Qty: 1 on 09/12/2019 at [facility] Right: Knee 06/23/2020 96-2157 / / [id number] Procedures Procedure Name Priority Date/Time Associated Diagnosis Comments LIPID PANEL Routine 11/25/2019 10:47 AM CDT Hyperlipidemia, unspecified hyperlipidemia type from Last 3 Months or Most Recently Relevant to Health Maintenance Results * LIPID PANEL (11/25/2019 10:47 AM CDT) CHOLESTEROL 169 <200 mg/dL 11/25/2019 9:11 PM CDT [facility] TRIGLYCERIDE 147 <150 mg/dL 11/25/2019 9:11 PM CDT [facility] HDL 43 40 - 59 mg/dL 11/25/2019 9:11 PM CDT [facility]3] [facility] LDL CALCULATED 97 <100 mg/dL 11/25/2019 9:11 PM CDT [facility]3] [facility] NON-HDL CHOLESTEROL 126 <130 mg/dL 11/25/2019 9:11 PM CDT [facility]3] [facility] Blood Collection / Unknown 11/25/2019 10:47 AM CDT 11/25/2019 8:22 PM CDT Narrative [facility] - 11/25/2019 9:11 PM CDT TOTAL CHOLESTEROL mg/dL Desirable <200 Borderline high 200-239 High >=240 TRIGLYCERIDES mg/dL Normal <150 Borderline high 150-199 High 200-499 Very high >=500 HDL CHOLESTEROL mg/dL Low <40 Normal 40-59 Desirable >=60 NON HDL CHOLESTEROL mg/dL Optimal <130 Near Optimal 130-159 Borderline High 160-189 Very High >=190 CALCULATED LDL mg/dL LDL <70, OPTIMAL if have Atherosclerotic cardiovascular disease (ASCVD) or intermediate or higher (>7.5%) 10 year risk of ASCVD including most adults with diabetes. LDL <100, Optimal in adult patients with low (<7.5%) 10 year ASCVD risk LDL 100-160, Suboptimal LDL >160, High LDL >190, Very high ATPIII Guidelines Reference Ranges for Lipid Panels (NCEP/AMA) . Farhat BEVERLY CHEMISTRY ORDERABLES Final Re sult [facility]3] [facility] CLIA# [id number] [place] [address] from Last 3 Months or Most Recently Relevant to Health Maintenance Insurance MEDICARE PART A AND B [employer] MEDICARE SUPP RX [facility] Commercial Advance Directives For more information, please contact: [phone] * Full Code (Latest Code Status on File) Date Activated Date Inactivated Comments 09/12/2019 11:43 AM 09/15/2019 1:16 PM * Full Code Date Activated Date Inactivated Comments 11/29/2018 2:25 PM 12/02/2018 7:30 PM * Full Code Date Activated Date Inactivated Comments 11/29/2018 6:45 AM 11/29/2018 2:08 PM * Full Code Date Activated Date Inactivated Comments 06/12/2014 4:27 PM 06/15/2014 7:25 PM * Full Code Date Activated Date Inactivated Comments 06/12/2014 9:51 AM 06/12/2014 4:27 PM Care Teams Publications Manager Relationship Specialty Start Date End Date Irma Gonzalez MD [address] [phone] PCP - General Family Practice 07/01/18
--- OUTSIDE RECORDS SUMMARY | 2025-02-20 09:46 | XMS_ITS | Encounter Summary ---
Author Organization [facility] Address [address] [place] [address] Care Team Providers Care Archery Instructor Name Role Phone Irma Gonzalez MD Primary Care Provider [phone]- [phone] Encounter Details Date Type Department Care Team (Latest Contact Info) Description 10/01/2000 Outpatient Historical [facility]- [address] [phone] Jonathan Patel MD [address] [phone] Other specified urticaria (Primary Dx); Adjustment disorder with anxiety Social History Tobacco Use Types Packs/Day Years Used Date Smoking Tobacco: Never Assessed Sex and Gender Information Value Date Recorded Sex Assigned at Not on file 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
--- OUTSIDE RECORDS SUMMARY | 2025-02-20 09:46 | XMS_ITS | Encounter Summary ---
Author Organization [facility] Address [address] [place] [address] Care Team Providers Care Nutrition Director Name Role Phone Irma Gonzalez MD Primary Care Provider +1- [phone] Encounter Details Date Type Department Care Team (Latest Contact Info) Description 04/21/2005 [facility] [address] [phone] Farhat Stokes PA NO ADDRESS ON FILE OPEN WOUND KNEE/LEG/ANKLE (Primary Dx) Social History Tobacco Use Types Packs/Day Years Used Date Smoking Tobacco: Never Assessed Sex and Gender Information Value Date Recorded Sex Assigned at Not on file 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
--- OUTSIDE RECORDS SUMMARY | 2025-02-20 09:46 | XMS_ITS | Encounter Summary ---
Author Organization 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
--- OUTSIDE RECORDS SUMMARY | 2025-02-20 09:46 | XMS_ITS | Encounter Summary ---
Author Organization [facility] Address [address] [place] [address] Care Team Providers Care Vice President Of Talent Acquisition Name Role Phone Irma Gonzalez MD Primary Care Provider +1- [phone] Encounter Details Date Type Department Care Team (Latest Contact Info) Description 11/17/2003 Outpatient Historical [facility]- [address] [phone] Jonathan Patel MD [address] [phone] SUPERFICIAL INJURY CORNEA (Primary Dx) Social History Tobacco Use Types Packs/Day Years Used Date Smoking Tobacco: Never Assessed Sex and Gender Information Value Date Recorded Sex Assigned at Not on file 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
--- OUTSIDE RECORDS SUMMARY | 2025-02-20 09:46 | XMS_ITS | Encounter Summary ---
Author Organization [facility] Address [address] [place] [address] Care Team Providers Care Rabbler Name Role Phone Irma Gonzalez MD Primary Care Provider Encounter Details Date Type Department Care Team (Latest Contact Info) Description 04/13/1999 Outpatient Historical [facility] [address] [place] [address] Julian Valdez, DO [address] [place] [address] Backache, unspecified (Primary Dx); Nonallopathic lesion of thoracic region, not elsewhere classified; Nonallopathic lesion of pelvic region, not elsewhere classified; Myalgia and myositis, unspecified Social History Tobacco Use Types Packs/Day Years Used Date Smoking Tobacco: Never Assessed Sex and Gender Information Value Date Recorded Sex Assigned at Not on file 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 Gender Identity Not on file Sexual Orientation Not on file documented as of this encounter Plan of Treatment Not on file documented as of this encounter Visit Diagnoses Diagnosis Backache, unspecified- Primary Nonallopathic lesion of thoracic region, not elsewhere classified Nonallopathic lesion of pelvic region, not elsewhere classified Myalgia and myositis, unspecified Mylagia and myositis, unspecified documented in this encounter Care Teams Rabbler Relationship Specialty Start Date End Date Irma Gonzalez MD [address] [phone] PCP - General Family Practice 07/01/18 documented as of this encounter
--- OUTSIDE RECORDS SUMMARY | 2025-02-20 09:46 | XMS_ITS ---
Author Organization [facility] Address [address] [place] [address] Care Team Providers Care Patient Access Associate Name Role Phone Michael Iglesias MD Primary Care Provider [phone] Active Problems Problem Noted Date Diagnosed Date [...] MSSA (methicillin susceptibl e Staphylococcus aureus) infection Current Treatment and Therapy Plans No current plan information found. Past Treatment and Therapy Plans No past plan information found. Lifetime Dose Tracking * Chemical Lifetime Dose Automatic Entry Manual Entr y Effective Dose 18.4 mSv 18.4 mSv 0 mSv Total DLP 1,308.5 DLP 1,308.5 DLP 0 DLP CTDIvol Max 60.9 mGy 60.9 mGy 0 mGy CTDIvol Min 60.9 mGy 60.9 mGy 0 mGy Resolved Problems Problem Noted Date Diagnosed Date Resolved Date Primary osteoarthritis of knee 02/24/2013 09/11/2019 Knee pain 06/20/2012 05/05/2015 Empyema 12/25/2011 10/14/2014 Joint pain 05/05/2015 Arthropathy, unspecified, site unspecified 05/05/2015 MRSA (methicillin resistant Staphylococcus aureus) 02/09/2016 Prostate cancer 11/21/2024
--- OUTSIDE RECORDS SUMMARY | 2025-02-20 09:46 | XMS_ITS | Encounter Summary ---
Author Organization [facility] Address [address] [place] [address] Care Team Providers Care Client Service Associate Name Role Phone Irma Gonzalez MD Primary Care Provider [phone] Encounter Details Date Type Department Care Team (Latest Contact Info) Description 06/13/2000 Outpatient Historical [facility] Medicine- [address] [phone] Jonathan Patel MD [address] [phone] Lichenification (Primary Dx) Social History Tobacco Use Types Packs/Day Years Used Date Smoking Tobacco: Never Assessed Sex and Gender Information Value Date Recorded Sex Assigned at Not on file 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
--- OUTSIDE RECORDS SUMMARY | 2025-02-20 09:46 | XMS_ITS | Encounter Summary ---
Author Organization [facility] Address [address] [place] [address] Care Team Providers Care Rug Renovator Name Role Phone Irma Gonzalez MD Primary Care Provider [phone]- [phone] Encounter Details Date Type Department Care Team (Latest Contact Info) Description 10/24/2000 Outpatient Historical [facility] Medicine- [address] [phone] Jonathan Patel MD [address] [phone] Unspecified pruritic disorder (Primary Dx) Social History Tobacco Use Types Packs/Day Years Used Date Smoking Tobacco: Never Assessed Sex and Gender Information Value Date Recorded Sex Assigned at Not on file 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
--- OUTSIDE RECORDS SUMMARY | 2025-02-20 09:46 | XMS_ITS | Encounter Summary ---
Author Organization [facility] Address [address] [place] [address] Care Team Providers Care Correctional Guard Name Role Phone Irma Gonzalez MD Primary Care Provider [phone]- [phone] Encounter Details Date Type Department Care Team (Latest Contact Info) Description 11/16/2003 Outpatient Historical [facility]- [address] [phone] Farhat Stokes, [place] NO ADDRESS ON FILE SUPERFICIAL INJURY CORNEA (Primary Dx) Social History Tobacco Use Types Packs/Day Years Used Date Smoking Tobacco: Never Assessed Sex and Gender Information Value Date Recorded Sex Assigned at Not on file 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
--- NOTE | 2025-02-20 09:49 | ECG_ITS ---
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 Measurements Intervals [place] Rate: 111 P: 0 SC: 0 QRS: -52 QRSD: 130 T: 90 QT: 387 QTc: 528 Interpretive Statements ATRIAL FLUTTER/TACHYCARDIA WITH RAPID VENTRICULAR RESPONSE LEFT AXIS DEVIATION [QRS AXIS < -30] POSSIBLE ANTERIOR MYOCARDIAL INFARCTION , OF INDETERMINATE AGE [30 ms Q WAVE IN V3/V4, OR R < 0.2 mV IN V4] No previous ECG available for comparison Electronically Signed On 02-21-2025 16:17:16 LIFE SKILLS EDUCATOR by Chet Sawyer M.D. [id number]
--- NOTE | 2025-02-20 09:56 | W.ED.SOB ---
Documented by User: SIRIA Villarreal 02/20/25 12:12 HPI - SOB/Dyspnea General: Chief Complaint: Chest Pain Stated Complaint: Pressure on Chest SOB General swelling Time Seen by Provider: 02/20/25 09:49 Source: patient and family Mode of arrival: wheelchair Limitations: no limitations History of Present Illness: HPI Narrative: Patient is a very nice 79-year-old male who presents to the ED today along with family for diagnosis of dyspnea. Patient states he has a history of atrial fibrillation and takes metoprolol and rivaroxaban for this. He states he also has a history of congestive heart failure. He states he does not take any type of diuretic medication. He states over the past few weeks he has noticed an almost 20 pound weight gain. He states he has progressively been becoming more short of breath to the point where he can barely walk across to his house without becoming extremely winded. He has noticed that his bilateral lower extremities are very squishy . He is not complaining of any chest pain. He states he follows with cardiology in [place]. Denies any recent surgeries. MD elicited complaint: shortness of breath Pertinent past history: congestive heart failure and other (atrial fib) Onset (ago): day(s) Timing: constant Severity: moderate Exacerbating factors: lying flat and exertion Relieving factors: nothing Known history of: congestive heart failure Treatment prior to arrival: none Related Data Home Medications ?Medication ?Instructions ?Recorded ?Confirmed doxycycline hyclate 100 mg capsule 100 mg PO DAILY 05/26/19 02/20/25 albuterol sulfate 90 mcg/actuation 2 inh inhalation Q6H PRN Wheezing 02/20/25 02/20/25 aerosol inhaler (Ventolin HFA) budesonide 160 mcg-glycopyr 9 2 inh inhalation BID 02/20/25 02/20/25 mcg-formot 4.8 mcg/actuation HFA inhaler (Breztri Aerosphere) metoprolol tartrate 50 mg tablet 50 mg PO BID 02/20/25 02/20/25 Previous Rx's ?Medication ?Instructions ?Recorded rivaroxaban 20 mg tablet (Xarelto) 20 mg PO DAILY #90 tabs 03/02/21 lisinopril 20 mg tablet 20 mg PO BID #30 tabs 11/17/21 Allergies Allergy/AdvReac Type Severity Reaction Status Date / Time No Known Allergies Allergy Unverified 05/26/19 10:35 PFS ED PFSH: Medical History (Updated 02/20/25 @ 12:12 by SIRIA Villarreal) Osteoarthritis History of prostate cancer History of MRSA infection GERD (gastroesophageal reflux disease) Atrial fibrillation HTN (hypertension) Surgical History (Updated 11/30/22 @ 12:17 by JACKIE Marin) Previous back surgery S/P total knee arthroplasty bilateral History of lung surgery Had staph infection Family History Mother Congestive heart failure (CHF) Course Consultations: Consultation #1: Dr. Watt-accepts admission to [facility] Vital Signs: Vital signs: Vital Signs Temperature 98.1 F 02/20/25 09:50 Pulse Rate 112 H 02/20/25 12:28 Respiratory Rate 26 H 02/20/25 12:00 Blood Pressure 130/93 02/20/25 12:28 Pulse Oximetry 96 02/20/25 12:28 Oxygen Delivery Me thod Room Air 02/20/25 09:50 MDM - SOB/Dyspnea Medical Decision Making Patient is a nice 79-year-old male here with a complaint of dyspnea that has been progressively worsening over the past 2 weeks. He is noting a 20+ pound weight gain. He clinically appears fluid overloaded with chest crackles and bilateral pitting edema. CXR is consistent with pulmonary edema. He is hypertensive and tachycardic. His BNP is over 11,000. He was given IV Lasix here. Remainder of his workup overall is benign. I feel patient would benefit from hospitalization and aggressive diuresis. Case discussed with Dr. Cardenas who agrees with decision to admit. I spoken to hospitalist Dr. Watt for admission. We did try to request records from his book cutter in [place] but have not been able to get these results. Last echo in our system was in 2020. Differential Diagnosis Likely congestive heart failure Medical Records I reviewed the patient's medical records. Lab Data I reviewed the patient's lab results. 02/20/25 10:16 02/20/25 10:16 Labs/Radiology: Radiology Impressions Chest X-Ray 02/20/25 09:41 IMPRESSION: Mild bibasilar opacities. Laboratory Results WBC 8.11 10^3/uL (3.29-11.43) 02/20/25 10:16 RBC 3.97 10^6/uL (3.85-5.65) 02/20/25 10:16 Hgb 14.10 g/dL (11.27-16.99) 02/20/25 10:16 Hct 43.4 % (37-53) 02/20/25 10:16 MCV 109.3 fl (82-101) H 02/20/25 10:16 MCH 35.5 pg (27-33) H 02/20/25 10:16 MCHC 32.5 g/dL (30-55) 02/20/25 10:16 RDW 14.4 % (12.1-15.1) 02/20/25 10:16 Plt Count 220 10^3/cmm (157-399) 02/20/25 10:16 MPV 10.0 fL (7.4-10.4) 02/20/25 10:16 Neut % (Auto) 76.9 % 02/20/25 10:16 Lymph % (Auto) 9.6 % 02/20/25 10:16 Coffey % (Auto) 11.1 % 02/20/25 10:16 Eos % (Auto) 1.7 % 02/20/25 10:16 Baso % (Auto) 0.5 % 02/20/25 10:16 Neut # (Auto) 6.23 10^3/uL (1.8-7.7) 02/20/25 10:16 Lymph # (Auto) 0.8 10^3/uL (0.8-4.8) 02/20/25 10:16 Coffey # (Auto) 0.9 10^3/uL (0.2-0.9) 02/20/25 10:16 Eos # (Auto) 0.1 10^3/uL (0.0-0.8) 02/20/25 10:16 Baso # (Auto) 0.0 10^3/uL (0.0-0.1) 02/20/25 10:16 Nucleated RBC % (auto) 0 % 02/20/25 10:16 Nucleated RBCs # 0.0 /100WBC 02/20/25 10:16 Sodium 140 mmol/L (136-145) 02/20/25 10:16 Potassium 3.7 mmol/L (3.5-5.1) 02/20/25 10:16 Chloride 106 mmol/L (98-107) 02/20/25 10:16 Carbon Dioxide 21 mmol/L (22-29) L 02/20/25 10:16 Anion Gap 16.7 (5-19) 02/20/25 10:16 BUN 18 mg/dL (8-23) 02/20/25 10:16 Creatinine 0.7 mg/dL (0.7-1.2) 02/20/25 10:16 GFR Calculation Not Reportable 02/20/25 10:16 Glucose 113 mg/dL (65-115) 02/20/25 10:16 Calculated Osmolality 293 mOsm/kg (285-295) 02/20/25 10:16 Calcium 8.7 mg/dL (8.5-10.5) 02/20/25 10:16 Total Bilirubin 1.2 mg/dL (0.15-1.2) 02/20/25 10:16 AST 15 U/L (0-40) 02/20/25 10:16 ALT 8 U/L (0-41) 02/20/25 10:16 Alkaline Phosphatase 111 U/L (40-130) 02/20/25 10:16 Troponin T Baseline 34 ng/L (0-15) H 02/20/25 10:16 NT-Pro-B Natriuret Pep 04237 pg/mL (0-450) H 02/20/25 10:16 Total Protein 6.6 g/dL (6.6-8.7) 02/20/25 10:16 Albumin 3.7 g/dL (3.5-5.2) 02/20/25 10:16 Globulin 2.9 g/dL (1.3-4.6) 02/20/25 10:16 Procalcitonin 0.04 ng/mL (0-0.5) 02/20/25 10:16 All radiology interpretation(s) finalized by discharge Discharge Plan Discharge Patient Disposition: Admitted As Inpatient Admit Provider: Calos Watt Clinical Impression: Acute on chronic systolic CHF (congestive heart failure) Condition: Stable Coding Level of Care Code ED Cylinder Tester for Chg Fwd Documented by User: Mark Cardenas MD 02/20/25 12:44 HPI - SOB/Dyspnea General: Chief Complaint: Chest Pain Stated Complaint: Pressure on Chest SOB General swelling Time Seen by Provider: 02/20/25 09:49 Related Data Home Medications ?Medication ?Instructions ?Recorded ?Confirmed doxycycline hyclate 100 mg capsule 100 mg PO DAILY 05/26/19 02/20/25 albuterol sulfate 90 mcg/actuation 2 inh inhalation Q6H PRN Wheezing 02/20/25 02/20/25 aerosol inhaler (Ventolin HFA) budesonide 160 mcg-glycopyr 9 2 inh inhalation BID 02/20/25 02/20/25 mcg-formot 4.8 mcg/actuation HFA inhaler (Breztri Aerosphere) metoprolol tartrate 50 mg tablet 50 mg PO BID 02/20/25 02/20/25 Previous Rx's ?Medication ?Instructions ?Recorded rivaroxaban 20 mg tablet (Xarelto) 20 mg PO DAILY #90 tabs 03/02/21 lisinopril 20 mg tablet 20 mg PO BID #30 tabs 11/17/21 Allergies Allergy/AdvReac Type Severity Reaction Status Date / Time No Known Allergies Allergy Unverified 05/26/19 10:35 PFSH ED PFSH: Medical History (Updated 02/20/25 @ 12:12 by SIRIA Villarreal) Osteoarthritis History of prostate cancer History of MRSA infection GERD (gastroesophageal reflux disease) Atrial fibrillation HTN (hypertension) Surgical History (Updated 11/30/22 @ 12:17 by JACKIE Marin) Previous back surgery S/P total knee arthroplasty bilateral History of lung surgery Had staph infection Family History Mother Congestive heart failure (CHF) Course Vital Signs: Vital signs: Vital Signs Temperature 98.1 F 02/20/25 09:50 Pulse Rate 112 H 02/20/25 12:28 Respiratory Rate 26 H 02/20/25 12:00 Blood Pressure 130/93 02/20/25 12:28 Pulse Oximetry 96 02/20/25 12:28 Oxygen Delivery Me thod Room Air 02/20/25 09:50 MDM - SOB/Dyspnea Medical Decision Making Patient is a nice 79-year-old male here with a complaint of dyspnea that has been progressively worsening over the past 2 weeks. He is noting a 20+ pound weight gain. He clinically appears fluid overloaded with chest crackles and bilateral pitting edema. CXR is consistent with pulmonary edema. He is hypertensive and tachycardic. His BNP is over 11,000. He was given IV Lasix here. Remainder of his workup overall is benign. I feel patient would benefit from hospitalization and aggressive diuresis. Case discussed with Dr. Cardenas who agrees with decision to admit. I spoken to hospitalist Dr. Watt for admission. We did try to request records from his book cutter in [place] but have not been able to get these results. Last echo in our system was in 2020. Saw patient with above midlevel I do agree with her history and physical. Patient likely has new onset congestive heart failure he does have a 20 pound plus weight gain. Will admit for diuresis Lab Data 02/20/25 10:16 02/20/25 10:16 Labs/Radiology: Radiology Impressions Chest X-Ray 02/20/25 09:41 IMPRESSION: Mild bibasilar opacities. Laboratory Results WBC 8.11 10^3/uL (3.29-11.43) 02/20/25 10:16 RBC 3.97 10^6/uL (3.85-5.65) 02/20/25 10:16 Hgb 14.10 g/dL (11.27-16.99) 02/20/25 10:16 Hct 43.4 % (37-53) 02/20/25 10:16 MCV 109.3 fl (82-101) H 02/20/25 10:16 MCH 35.5 pg (27-33) H 02/20/25 10:16 MCHC 32.5 g/dL (30-55) 02/20/25 10:16 RDW 14.4 % (12.1-15.1) 02/20/25 10:16 Plt Count 220 10^3/cmm (157-399) 02/20/25 10:16 MPV 10.0 fL (7.4-10.4) 02/20/25 10:16 Neut % (Auto) 76.9 % 02/20/25 10:16 Lymph % (Auto) 9.6 % 02/20/25 10:16 Coffey % (Auto) 11.1 % 02/20/25 10:16 Eos % (Auto) 1.7 % 02/20/25 10:16 Baso % (Auto) 0.5 % 02/20/25 10:16 Neut # (Auto) 6.23 10^3/uL (1.8-7.7) 02/20/25 10:16 Lymph # (Auto) 0.8 10^3/uL (0.8-4.8) 02/20/25 10:16 Coffey # (Auto) 0.9 10^3/uL (0.2-0.9) 02/20/25 10:16 Eos # (Auto) 0.1 10^3/uL (0.0-0.8) 02/20/25 10:16 Baso # (Auto) 0.0 10^3/uL (0.0-0.1) 02/20/25 10:16 Nucleated RBC % (auto) 0 % 02/20/25 10:16 Nucleated RBCs # 0.0 /100WBC 02/20/25 10:16 Sodium 140 mmol/L (136-145) 02/20/25 10:16 Potassium 3.7 mmol/L (3.5-5.1) 02/20/25 10:16 Chloride 106 mmol/L (98-107) 02/20/25 10:16 Carbon Dioxide 21 mmol/L (22-29) L 02/20/25 10:16 Anion Gap 16.7 (5-19) 02/20/25 10:16 BUN 18 mg/dL (8-23) 02/20/25 10:16 Creatinine 0.7 mg/dL (0.7-1.2) 02/20/25 10:16 GFR Calculation Not Reportable 02/20/25 10:16 Glucose 113 mg/dL (65-115) 02/20/25 10:16 Calculated Osmolality 293 mOsm/kg (285-295) 02/20/25 10:16 Calcium 8.7 mg/dL (8.5-10.5) 02/20/25 10:16 Total Bilirubin 1.2 mg/dL (0.15-1.2) 02/20/25 10:16 AST 15 U/L (0-40) 02/20/25 10:16 ALT 8 U/L (0-41) 02/20/25 10:16 Alkaline Phosphatase 111 U/L (40-130) 02/20/25 10:16 Troponin T Baseline 34 ng/L (0-15) H 02/20/25 10:16 NT-Pro-B Natriuret Pep 93423 pg/mL (0-450) H 02/20/25 10:16 Total Protein 6.6 g/dL (6.6-8.7) 02/20/25 10:16 Albumin 3.7 g/dL (3.5-5.2) 02/20/25 10:16 Globulin 2.9 g/dL (1.3-4.6) 02/20/25 10:16 Procalcitonin 0.04 ng/mL (0-0.5) 02/20/25 10:16 Discharge Plan Discharge Patient Disposition: Admitted As Inpatient Admit Provider: Calos Watt Clinical Impression: Acute on chronic systolic CHF (congestive heart failure) Condition: Stable Coding Level of Care Code ED Cylinder Tester for Ulises English
[2025-02-20] MEDS: labetalol 5 mg/mL SDV 20mL 20 MG IVP ×2 (10:33→11:20)
[2025-02-20] MEDS: FUROsemide 10 mg/mL SDV 10mL 60 MG IVP (10:33)
[2025-02-20 10:36] LABS: Hematocrit 43.4 % (37-53); Hemoglobin 14.10 g/dL (11.27-16.99); Mean Corpuscular HGB Conc 32.5 g/dL (30-55); Mean Corpuscular Hemoglobin 35.5 pg (27-33); Mean Corpuscular Volume 109.3 fl (82-101); Nucleated Red Blood Cells % 0 %; Platelet Count 220 10^3/cmm (157-399); Red Blood Count 3.97 10^6/uL (3.85-5.65); White Blood Count 8.11 10^3/uL (3.29-11.43)
[2025-02-20 10:57] LABS: Troponin(5th) Baseline 34 ng/L (0-15)
[2025-02-20 11:12] LABS: Alanine Aminotransferase 8 U/L (0-41); Albumin Level 3.7 g/dL (3.5-5.2); Alkaline Phosphatase 111 U/L (40-130); Anion Gap 16.7 (5-19); Aspartate Amino Transferase 15 U/L (0-40); Blood Urea Nitrogen 18 mg/dL (8-23); Calcium 8.7 mg/dL (8.5-10.5); Carbon Dioxide 21 mmol/L (22-29); Chloride 106 mmol/L (98-107); Globulin 2.9 g/dL (1.3-4.6); Glucose 113 mg/dL (65-115); NT Pro B Type Natriuretic Pept 11865 pg/mL (0-450); Osmolality Calculated 293 mOsm/kg (285-295); Potassium 3.7 mmol/L (3.5-5.1); Procalcitonin 0.04 ng/mL (0-0.5); Sodium 140 mmol/L (136-145); Total Protein 6.6 g/dL (6.6-8.7)
--- NOTE | 2025-02-20 11:55 | ECG_ITS ---
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 Measurements Intervals [place] Rate: 111 P: 0 [place]: 0 QRS: -53 QRSD: 142 T: 98 QT: 388 QTc: 528 Interpretive Statements ATRIAL FLUTTER/TACHYCARDIA WITH RAPID VENTRICULAR RESPONSE LEFT AXIS DEVIATION [QRS AXIS < -30] INTRAVENTRICULAR CONDUCTION DELAY Compared to ECG 02/20/2025 09:49:18 NO SIGNIFICANT CHANGE Electronically Signed On 02-21-2025 17:40:27 BRUSHER MACHINE by Chet Sawyer M.D. [email or web address]
[2025-02-20 12:20] LABS: Respiratory Syncytial Virus Ce NEGATIVE (Negative); SARS-CoV-2 PCR NEGATIVE (Negative)
[2025-02-20] MEDS: dilTIAZem 5 mg/mL SDV 5 mL 10 MG IVP (12:24)
--- NOTE | 2025-02-20 12:30 | PC.NURSE ---
Admit Note Patient admitted to 103 from ER via wheelchair. Covering service notified Dr Kruger. Patient presents with SOB, generalized swelling and Aflutter/AFIB rvr. Orders reviewed & will continue to monitor. Amiodarone drip per protocol started. 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 Other education includes: insertion of morse catheter for urine output measurement while on Lasix, amiodarone drip to convert to normal rhythm and HR control. Patient and/or home furnishings sales representative verbalizes understanding.
--- NOTE | 2025-02-20 12:55 | USCV_ITS ---
Jude Matson Age: 79 Gender: M : 1945 Exam Date: 02/20/2025 13:25 Ordering Phys: Renny Kruger MD Technologist: Exam Location: [facility] Indication: cp sob BP: 141 / 99 HR: 114 Rhythm: Sinus Technical Quality: Adequate MEASUREMENTS (Male / Female) Normal Values 2D ECHO LV Diastolic Diameter PLAX 4.7 cm 4.2 - 5.9 / 3.9 - 5.3 cm IVS Diastolic Thickness 1.4 cm 0.6 - 1.0 / 0.6 - 0.9 cm IVS Systolic Thickness 1.8 cm LVPW Diastolic Thickness 1.3 cm 0.6 - 1.0 / 0.6 - 0.9 cm LVPW Systolic Thickness 1.6 cm LVOT Diameter 2.0 cm LV Ejection Fraction 2D Teich 39.1 % LV Ejection Fraction MOD 4C 43.1 % LV Ejection Fraction MOD 2C 47.3 % LV Ejection Fraction 2C AL 47.1 % LA Diameter 4.9 cm RA Systolic Volume 4C AL 70.0 ml RA Systolic Volume 4C MOD 70.5 ml Aorta at Sinotubular Diameter 3.1 cm M-MODE LA Ao Ratio MM 1.2 AV Cusp Separation MM 1.1 cm DOPPLER AV Peak Velocity 195.3 cm/s LVOT Peak Velocity 95.0 cm/s AV Area Cont Eq vti 1.8 cm squared AV Area Cont Eq pk 1.6 cm squared MV Peak Velocity 139.0 cm/s MV Area PHT 7.9 cm squared Mitral E to A Ratio 3.4 TV Peak Velocity 246.5 cm/s TR Peak Velocity 319.0 cm/s TR Peak Gradient 40.7 mmHg TV Peak E Velocity 109.0 cm/s PV Peak Velocity 91.0 cm/s FINDINGS Left Ventricle Normal left ventricular size moderately reduced left ventricular systolic function with global hypokinesis and ejection fraction of 39%. Mild concentric left ventricular hypertrophy. Grade 2 left ventricular diastolic dysfunction consistent with elevated left ventricular end-diastolic pressure. Right Ventricle Normal right ventricular size and systolic function. Right Atrium Normal right atrial size. Left Atrium Mild left atrial enlargementNormal left atrial size. IA Septum Normal appearance of the interatrial septum. Mitral Valve Normal mitral valve structure. Mild mitral valve regurgitation. Aortic Valve Aortic valve not well-visualized. Calcified aortic valve. Mild aortic valve stenosis. No aortic valve regurgitation Tricuspid Valve Mild tricuspid valve regurgitation. Normal pulmonary pressure. Pulmonic Valve Normal pulmonic valve structure. No pulmonic valve stenosis or regurgitation. Pericardium No pericardial effusion. Aorta Normal diameter of the aortic root and ascending thoracic aorta. IVC Normal IVC diameter. CONCLUSIONS Normal left ventricular cavity size. Moderately reduced left ventricular systolic function with global hypokinesis, EF 39% Mild concentric left ventricular hypertrophy Stage II left ventricular diastolic dysfunction Normal right ventricular size and systolic function. Mild aortic valve stenosis Mild mitral valve regurgitation Chet Sawyer MD, FACC (Electronically Signed) Final Date: 20 February 2025 14:31 S
[2025-02-20 13:16] LABS: Estmated Average Glucose 103; Hemoglobin A1C 5.2 % (4.0-6.0)
[2025-02-20 13:24] LABS: Cholesterol 123 mg/dL (0-200); HDL Cholesterol 43 mg/dL (60-100); Thyroid Stimulating Hormone 1.85 uIU/mL (0.27-4.20); Triglycerides 67 mg/dL (0-150)
[2025-02-20] MEDS: pantoprazole 40 mg SDV IVP (13:25)
[2025-02-20] MEDS: AMIODARONE HCL/D5W 900 MG/500 ML BAG 33.33 MG IV (13:34)
--- NOTE | 2025-02-20 13:52 | P.HP_ITS ---
Providers/Chief Complaint 2 Admitting Physician: Calos Watt Primary Care Provider: Sadie Peña Chief Complaint: Pressure on Chest SOB General swelling History of Present Illness Jude Matson is a 79 year old male with a past medical history of CHF, atrial fibrillation, who presents to [facility] for shortness of breath, edema, increased abdominal distention, palpitations. Patient currently is alert oriented x 3, follows all commands, currently in A-fib with RVR heart rates in the 120s, complaining of shortness of breath, does report lower extremity edema, no chest pain, has palpitations, no lightness, dizziness no recent illness no fevers, no cough, follows with cardiology in [place], Review of Systems 2 Const: Denies: fever(s) or chills Card: Denies: chest pain Resp: Reports: dyspnea; Denies: non-productive cough GI: Reports: bloating : Denies: flank pain Medications/Allergies Home Medications ?Medication ?Instructions ?Recorded ?Confirmed ?Last Taken ?Type doxycycline hyclate 100 mg capsule 100 mg PO DAILY 05/1502/20/25 02/20/25 08:00 History rivaroxaban 20 mg tablet (Xarelto) 20 mg PO DAILY #90 tabs 03/02/21 02/20/25 02/20/25 08:00 Rx lisinopril 20 mg tablet 20 mg PO BID #30 tabs 02/20/25 02/20/25 08:00 Rx albuterol sulfate 90 mcg/actuation 2 inh inhalation Q6 H PRN Wheezing 02/20/25 02/20/25 Unknown History aerosol inhaler (Ventolin HFA) budesonide 160 mcg-glycopyr 9 2 inh inhalation BID 02/20/25 02/19/25 History mcg-formot 4.8 mcg/actuation HFA inhaler (Breztri Aerosphere) metoprolol tartrate 50 mg tablet 50 mg PO BID 02/20/25 02/20/25 02/20/25 08:00 History Allergies Allergy/AdvReac Type Severity Reaction Status Date / Time No Known Allergies Allergy Unverified 05/26/19 10:35 PFSH Acute 2 PFSH: Medical History (Updated 02/20/25 @ 14:08 by Renny Kruger MD) Osteoarthritis History of prostate cancer History of MRSA infection GERD (gastroesophageal reflux disease) Atrial fibrillation HTN (hypertension) Surgical History (Updated 11/30/22 @ 12:17 by JACKIE Marin) Previous back surgery S/P total knee arthroplasty bilateral History of lung surgery Had staph infection Family History Mother Congestive heart failure (CHF) Vitals/I&O/Wt Last Vital Signs Temp 98.1 F 02/20/25 12:55 Pulse 112 H 02/20/25 12:55 Resp 24 H 02/20/25 12:55 BP 141/99 02/20/25 12:55 Pulse Ox 94 02/20/25 12:55 O2 Del Method Room Air 02/20/25 12:55 02/19/25 02/20/25 02/20/25 22:59 06:59 14:59 Output Total 300 / 300 Balance -300 / -300 Weight last 48 hrs Weight 117.934 kg Physical Exam 2 Const: COMMON NORMALS: no acute distress and patient oriented x3 Eye: COMMON NORMALS: Equal, round and reactive pupils present Resp: COMMON NORMALS: normal respiratory effort, No retractions and No use of accessory muscles AUSCULTATION: crackles Cardio: COMMON NORMALS: no JVD, regular rate, regular rhythm, S1 normal heart sound present and S2 normal heart sound present RATE: regular rate RHYTHM: regular rhythm HEART SOUNDS: S1 normal heart sound present and S2 normal heart sound present GI: COMMON NORMALS: Normal to inspection, nondistended, normoactive bowel sounds present, Soft to palpation and non-tender Extremity: OTHER: 3+ pitting edema, anasarca Neuro: COMMON NORMALS: patient oriented x3, CN's II-XII intact bilaterally and moves all extremities Psych: COMMON NORMALS: mental status grossly normal Data 02/20/25 10:16 02/20/25 10:16 A&P Assessment and plan 1. Atrial fibrillation with rapid ventricular response: 2. Acute on chronic systolic CHF (congestive heart failure): Plan: Acute hypoxic respiratory failure - Secondary to CHF exacerbation, fluid overload - Blood - Monitor respiratory status closely - Lasix 40 IV twice daily with potassium placement therapy - Fluid restrictions of 1000 cc - Cardiac echo - Full code - Xarelto for DVT prophylaxis Atrial fibrillation with rapid ventricular response - Continue Xarelto - Continue metoprolol - Amiodarone drip Full code Xarelto for DVT prophylaxis PDMP PDMP Reviewed: Not Reviewed Attestations 2 Medical Necessity Statement*: Patient requires hospitalization for acute hypoxic respiratory failure secondary to CHF exacerbation, fluid overload, A-fib with RVR, inpatient, greater than 2 midnights Diagnoses Atrial fibrillation with rapid ventricular response I48.91 Acute on chronic systolic CHF (congestive heart failure) I50.23
--- NOTE | 2025-02-20 16:29 | PM.CONSULT ---
Providers/Reason For Consult Consulting Physician/Specialty*: Chet Sawyer MD Reason for Consult*: Systolic congestive heart failure Requesting Physician: Renny Jacinto MD Attending Physician: Renny Kruger MD Primary Care Provider: Sadie Peña History of Present Illness History of Present Illness Jude Matson is a 79 year old male with a history of essential hypertension, chronic heart failure with reduced ejection fraction, EF 44% in 2020, paroxysmal atrial fibrillation on chronic Xarelto, and aortic valve stenosis followed by cardiology in [facility]. Patient presents with progressive increase in shortness of breath and lower extremity edema over the last 2 months consistent with CHF exacerbation. He also noticed that his heart rate on his pulse ox machine would go up as high as 152 bpm with walking. The patient was found to be in atrial fibrillation with rapid ventricular response in the emergency room. Echocardiogram today was performed and revealed an ejection fraction of 39% which is moderately reduced. Cardiology has been consulted for assessment and treatment of atrial fibrillation with rapid ventricular response and acute on chronic systolic heart failure. Date of Service: 01/03/21 Procedure(s): CV. echo complete* [id number] CONCLUSIONS 1-Moderately increased left ventricular cavity size. Moderately decreased left ventricular systolic function. Global left ventricular hypokinesis. Left ventricular ejection fraction is estimated at 44 %. Grade I/IV diastolic dysfunction (abnormal relaxation filling pattern), normal to mildly elevated filling pressures. 2-Moderately increased left atrial size. 3-Severe aortic valve calcification. Moderate aortic valve stenosis, mean gradient 8.7 mmHg, NEENA 1.5 cm2 trace aortic valve regurgitation. 4-Moderately thickened mitral valve. No mitral valve stenosis. Mild-moderate mitral valve regurgitation. 5-There is no pericardial effusion. 6-Pulmonary artery systolic pressure is within normal limits. 7-Right atrial pressure is around 10 mm of mercury. 8-When compared to the prior echocardiogram dated 16 July 2018 there is a moderate aortic stenosis now, there is mild to moderate mitral and tricuspid valve regurgitation. Floridalma Williamson MD (Electronically Signed) 08/07/18 Sestamibi IMPRESSIONS 1. Small sized perfusion abnormality of entire inferior and apical amin with improved tracer uptake on prone images. This is suggestive of attenuation artifact. 2. There is mildly reduced left ventricular global systolic function. The left ventricular ejection fraction is reduced with a value of 46%. 3. Mild diffuse hypokinesis. 4. No coronary ischemia based on this study. MMBI 1. No significant EKG changes with the LexiScan infusion. 2. No LexiScan induced chest pain or cardiac arrhythmia. 3. Normal blood pressure and heart rate response. 4. Sestamibi/sestamibi perfusion scan pending; see separate report. Medications/Allergies Home Medications ?Medication ?Instructions ?Recorded ?Confirmed ?Last Taken ?Type doxycycline hyclate 100 mg capsule 100 mg PO DAILY 05/26/19 02/20/25 02/20/25 08:00 History rivaroxaban 20 mg tablet (Xarelto) 20 mg PO DAILY #90 tabs 03/02/21 02/20/25 02/20/25 08:00 Rx lisinopril 20 mg tablet 20 mg PO BID #30 tabs 11/17/21 02/20/25 02/20/25 08:00 Rx albuterol sulfate 90 mcg/actuation 2 inh inhalation Q6H PRN Wheezing 02/20/25 02/20/25 Unknown History aerosol inhaler (Ventolin HFA) budesonide 160 mcg-glycopyr 9 2 inh inhalation BID 02/20/25 02/20/25 02/19/25 History mcg-formot 4.8 mcg/actuation HFA inhaler (Breztri Aerosphere) metoprolol tartrate 50 mg tablet 50 mg PO BID 02/20/25 02/20/25 02/20/25 08:00 History Allergies Allergy/AdvReac Type Severity Reaction Status Date / Time No Known Allergies Allergy Unverified 05/26/19 10:35 Current Medications Generic Name Dose Route Start Last Admin Trade Name Santiagoq PRN Reason Stop Dose Admin AMIODARONE HCL/D5W 900 mg in 500 mls @ 0 mls/hr 02/20/25 12:55 02/20/25 13:34 Amiodarone 900 Mg/500 Ml-D5w IV 1 mg/min .Q0M MYLES 33.33 mls/hr Protocol Administration Per Protocol Pantoprazole Sodium 40 mg 02/20/25 13:00 02/20/25 13:25 Pantoprazole 40 Mg Sdv IVP 40 mg Q24H MYLES Administration PFSH Acute PFSH: Medical History (Updated 02/20/25 @ 14:08 by Renny Kruger MD) Osteoarthritis History of prostate cancer History of MRSA infection GERD (gastroesophageal reflux disease) Atrial fibrillation HTN (hypertension) Surgical History (Updated 11/30/22 @ 12:17 by JACKIE Marin) Previous back surgery S/P total knee arthroplasty bilateral History of lung surgery Had staph infection Family History Mother Congestive heart failure (CHF) Vitals/I&O/Wt Last Vital Signs Temp 98.1 F 02/20/25 12:55 Pulse 112 H 02/20/25 12:55 Resp 24 H 02/20/25 12:55 BP 141/99 02/20/25 12:55 Pulse Ox 94 02/20/25 12:55 O2 Del Method Room Air 02/20/25 12:55 02/20/25 02/20/25 02/20/25 06:59 14:59 22:59 Output Total 1450 / 1450 750 / 2200 Balance -1450 / -1450 -750 / -2200 Weight last 48 hrs Weight 260 lb 12.909 oz Weight 260 lb Physical Exam Narrative: General: In no acute distress Neck: No jugular venous distention or carotid bruits Heart: Irregular rate and rhythm, tachycardic, 2 out of 6 systolic murmur Lungs: Normal respiratory effort with no use of intercostal muscles, clear lungs sounds to auscultation Extremities: Mild edema Neuro: Alert and oriented x 3 Urinary Catheter Management: [place] Latex Free: Cath Placed During This Visit: yes Urinary Catheter Date of Insertion: 02/20/25 Urinary Catheter Time of Insertion: 16:45 Data 02/20/25 10:16 02/20/25 10:16 Other Labs: High sensitive troponin 34??> 39 NT proBNP 11,865 There have been 3 EKGs performed today personally interpreted: EKG show atrial fibrillation with rapid ventricular response, left anterior fascicular block, possible old anteroseptal myocardial infarction, mild ST depression and T wave inversions in the lateral leads Echo 02/20/2025: Normal left ventricular cavity size. Moderately reduced left ventricular systolic function with global hypokinesis, EF 39% Mild concentric left ventricular hypertrophy Stage II left ventricular diastolic dysfunction Normal right ventricular size and systolic function. Mild aortic valve stenosis Mild mitral valve regurgitation A&P Assessment and plan 1. Atrial fibrillation with rapid ventricular response: 2. Acute on chronic systolic CHF (congestive heart failure): 3. HTN (hypertension): Plan: ? The patient is having an exacerbation of his chronic systolic heart failure due to persistent atrial fibrillation with rapid ventricular response and uncontrolled hypertension. ?Ejection fraction is not significantly changed compared to 2020. Patient never had an angiogram, just had a nuclear stress test, for ischemic workup of his cardiomyopathy back in 2019. - I agree with IV amiodarone to try to control rate and convert the patient back to sinus rhythm ? Lasix 40 mg IV twice daily ? Continue metoprolol to tartrate 50 mg twice daily ? Continue lisinopril 20 mg twice daily ? Hold Xarelto and use Lovenox until I can get a left heart catheterization performed on the patient?likely Sunday - If patient's heart rate is difficult to control and/or he does not convert back to sinus rhythm he will require an electrical cardioversion -The patient's troponin is minimally elevated and flat in trend due to demand ischemia and not acute coronary syndrome - Oxygen supplementation PDMP PDMP Reviewed: Not Reviewed Coding Level of Care Code 57439 Diagnoses Atrial fibrillation with rapid ventricular response I48.91 Acute on chronic systolic CHF (congestive heart failure) I50.23 HTN (hypertension) I10
--- NOTE | 2025-02-20 17:05 | ECG_ITS ---
[email or web address] [place] [facility] Date: 2025-02-20 Pat Name: Jude Matson Department: Room: 103 Gender: Male [employer] Officer: : 1945 Requested By: Rosy Terry Order Number: [id number] Sarah MD: Chet Sawyer M.D. Measurements Intervals [place] Rate: 111 P: 0 MD: 0 QRS: -48 QRSD: 136 T: 96 QT: 390 QTc: 532 Interpretive Statements ATRIAL FLUTTER/TACHYCARDIA WITH RAPID VENTRICULAR RESPONSE LEFT AXIS DEVIATION [QRS AXIS < -30] INTRAVENTRICULAR CONDUCTION DELAY [130+ ms QRS DURATION] POSSIBLE ANTERIOR MYOCARDIAL INFARCTION , OF INDETERMINATE AGE [30 ms Q WAVE IN V3/V4, OR R < 0.2 mV IN V4] Compared to ECG 02/20/2025 11:55:48 NO SIGNIFICANT CHANGE Electronically Signed On 02-21-2025 17:31:59 ONLINE FACILITATOR by Chet Sawyer M.D. [email or web address]
[2025-02-20 17:39] LABS: Troponin 5 6HR 34.74 ng/L (0-15); Troponin 5 6HR Delta 0.74 ng/L (0-12)
[2025-02-20] MEDS: FUROsemide 10 mg/mL SDV 4mL 40 MG IVP (17:47)
[2025-02-21] VITALS (10 sets, daily range): BP systolic 106–125; BP diastolic 70–83; PULSE 108–109; RESP 18–28; TEMP 36.6–36.8; O2SAT 94–96
[2025-02-21 04:48] LABS: Hematocrit 41.2 % (37-53); Hemoglobin 13.00 g/dL (11.27-16.99); Mean Corpuscular HGB Conc 31.6 g/dL (30-55); Mean Corpuscular Hemoglobin 34.5 pg (27-33); Mean Corpuscular Volume 109.3 fl (82-101); Nucleated Red Blood Cells % 0 %; Platelet Count 202 10^3/cmm (157-399); Red Blood Count 3.77 10^6/uL (3.85-5.65); White Blood Count 8.37 10^3/uL (3.29-11.43)
[2025-02-21 05:16] LABS: Blood Urea Nitrogen 17 mg/dL (8-23); Calcium 8.7 mg/dL (8.5-10.5); Carbon Dioxide 30 mmol/L (22-29); Chloride 101 mmol/L (98-107); Glucose 119 mg/dL (65-115); NT Pro B Type Natriuretic Pept 6853 pg/mL (0-450); Osmolality Calculated 293 mOsm/kg (285-295); Sodium 140 mmol/L (136-145)
[2025-02-21 05:17] LABS: Anion Gap 12.5 (5-19); Potassium 3.5 mmol/L (3.5-5.1)
[2025-02-21] MEDS: FUROsemide 10 mg/mL SDV 4mL 40 MG IVP ×2 (05:26→18:22)
[2025-02-21] MEDS: pantoprazole 40 mg SDV IVP (12:25)
[2025-02-21] MEDS: amiodarone 150 MG/100 ML PREMIX 400 MG IV (12:26)
--- NOTE | 2025-02-21 12:42 | PM.PN ---
Subjective Subjective: Breathing much better Vitals/I&O/Wt Last Vital Signs Temp 98.1 F 02/21/25 11:20 Pulse 109 H 02/21/25 11:20 Resp 28 H 02/21/25 11:20 BP 125/77 02/21/25 11:20 Pulse Ox 96 02/21/25 11:20 O2 Del Method Room Air 02/21/25 11:20 O2 Flow Rate 2 02/21/25 08:26 02/20/25 02/21/25 02/21/25 22:59 06:59 14:59 Intake Total 677.758 / 677.758 480 / 1157.758 240 / 240 Output Total 3000 / 4450 500 / 4950 1300 / 1300 Balance -2322.242 / -3772.242 -20 / -3792.242 -1060 / -1060 Weight last 48 hrs Weight 256 lb 6.362 oz Weight 260 lb 12.909 oz Weight 260 lb Physical Exam Narrative: General: In no acute distress Neck: No jugular venous distention or carotid bruits Heart: Irregular rate and rhythm, tachycardic Lungs: Normal respiratory effort with no use of intercostal muscles, clear lungs sounds to auscultation Extremities: 1+ bilateral leg edema Neuro: Alert and oriented x 3 Urinary Catheter Management: [place] Latex Free: Cath Placed During This Visit: yes Reason for Continuing Indwelling Catheter: Accurate Measurement of Urinary Output in Critically Ill Patients Urinary Catheter Date of Insertion: 02/20/25 Urinary Catheter Time of Insertion: 16:45 Data 02/21/25 04:40 02/21/25 04:40 A&P Assessment and plan 1. Atrial fibrillation with rapid ventricular response: 2. Acute on chronic systolic CHF (congestive heart failure): 3. HTN (hypertension): Plan: - diuresed 5 liters so far with no bump in Cr - still in afib and aflutter with RVR - continue Lasix 40mg IV bid - give additional amio 150mg IV bolus x 1 and increase drip to 1 mg/min - will schedule for YAMILKA guided ECV for tomorrow - [facility] Sunday if there is availability - will discuss with interventionalist - will plan for additional CHF GDMT after diuresis, including Entresto, spironolactone and possibly SGLT2- inb -bmp in am PDMP PDMP Reviewed: Not Reviewed Attestations Medical Necessity Statement*: Will need another 2 midnights in the hospital due to congestive heart failure, atrial fibrillation with rapid ventricular response Coding Level of Care Code Acute Code for Chg Fwd Diagnoses Atrial fibrillation with rapid ventricular response I48.91 Acute on chronic systolic CHF (congestive heart failure) I50.23 HTN (hypertension) I10
--- NOTE | 2025-02-21 12:58 | P.PN_ITS ---
Subjective 2 Subjective: Patient is alert and oriented x 3, following all commands, shortness of breath improving, edema improving, atrial fibrillation heart rates in the 110s, on amiodarone drip Vitals/I&O/Wt Last Vital Signs Temp 98.1 F 02/21/25 11:20 Pulse 109 H 02/21/25 11:20 Resp 28 H 02/21/25 11:20 BP 125/77 02/21/25 11:20 Pulse Ox 96 02/21/25 11:20 O2 Del Method Room Air 02/21/25 11:20 O2 Flow Rate 2 02/21/25 08:26 02/20/25 02/21/25 02/21/25 22:59 06:59 14:59 Intake Total 677.758 / 677.758 480 / 1157.758 240 / 240 Output Total 3000 / 4450 500 / 4950 1300 / 1300 Balance -2322.242 / -3772.242 -20 / -3792.242 -1060 / -1060 Weight last 48 hrs Weight 116.3 kg Weight 118.3 kg Weight 117.934 kg Physical Exam 2 Const: COMMON NORMALS: no acute distress and patient oriented x3 Resp: COMMON NORMALS: normal respiratory effort, No retractions, No use of accessory muscles and clear to auscultation bilaterally AUSCULTATION: clear to auscultation bilaterally Cardio: COMMON NORMALS: S1 normal heart sound present and S2 normal heart sound present RATE: tachycardic RHYTHM: abnormal rhythm irregularly irregular HEART SOUNDS: S1 normal heart sound present and S2 normal heart sound present GI: COMMON NORMALS: Normal to inspection, nondistended, normoactive bowel sounds present and non-tender Extremity: COMMON NORMALS: no pedal edema Neuro: COMMON NORMALS: patient oriented x3 Psych: COMMON NORMALS: mental status grossly normal Urinary Catheter Management: [place] Latex Free: Cath Placed During This Visit: yes Reason for Continuing Indwelling Catheter: Accurate Measurement of Urinary Output in Critically Ill Patients Urinary Catheter Date of Insertion: 02/20/25 Urinary Catheter Time of Insertion: 16:45 Data 02/21/25 04:40 02/21/25 04:40 A&P Assessment and plan 1. Atrial fibrillation with rapid ventricular response: 2. Acute on chronic systolic CHF (congestive heart failure): Plan: Acute hypoxic respiratory failure - Secondary to CHF exacerbation, fluid overload --5 L so far - Blood - Monitor respiratory status closely - Lasix 40 IV twice daily with potassium placement therapy - Fluid restrictions of 1000 cc - Cardiac echo - Full code - Lovenox for DVT prophylaxis Atrial fibrillation with rapid ventricular response - Continue therapeutic Lovenox - Continue metoprolol - Amiodarone drip NSTEMI CONCLUSIONS Normal left ventricular cavity size. Moderately reduced left ventricular systolic function with global hypokinesis, EF 39% Mild concentric left ventricular hypertrophy Stage II left ventricular diastolic dysfunction Normal right ventricular size and systolic function. Mild aortic valve stenosis Mild mitral valve regurgitation Plan -Aspirin, statin, beta-harlan, therapeutic Lovenox Full code Lovenox for DVT prophylaxis PDMP PDMP Reviewed: Not Reviewed Attestations 2 Medical Necessity Statement*: Patient requires hospitalization for acute hypoxic respiratory failure, atrial fibrillation, NSTEMI Diagnoses Atrial fibrillation with rapid ventricular response I48.91 Acute on chronic systolic CHF (congestive heart failure) I50.23
[2025-02-21] MEDS: AMIODARONE HCL/D5W 900 MG/500 ML BAG 16.67 MG IV (13:01)
[2025-02-22] VITALS (8 sets, daily range): BP systolic 103–124; BP diastolic 72–86; PULSE 89–108; RESP 22–33; TEMP 36.4–36.9; O2SAT 98–99
[2025-02-22 02:32] LABS: Hematocrit 41.0 % (37-53); Hemoglobin 13.10 g/dL (11.27-16.99); Mean Corpuscular HGB Conc 32.0 g/dL (30-55); Mean Corpuscular Hemoglobin 34.5 pg (27-33); Mean Corpuscular Volume 107.9 fl (82-101); Nucleated Red Blood Cells % 0 %; Platelet Count 183 10^3/cmm (157-399); Red Blood Count 3.80 10^6/uL (3.85-5.65); White Blood Count 9.92 10^3/uL (3.29-11.43)
[2025-02-22 02:58] LABS: Anion Gap 14.0 (5-19); Blood Urea Nitrogen 21 mg/dL (8-23); Calcium 8.8 mg/dL (8.5-10.5); Carbon Dioxide 31 mmol/L (22-29); Chloride 100 mmol/L (98-107); Glucose 123 mg/dL (65-115); Osmolality Calculated 296 mOsm/kg (285-295); Potassium 4.0 mmol/L (3.5-5.1); Sodium 141 mmol/L (136-145)
[2025-02-22 03:05] LABS: NT Pro B Type Natriuretic Pept 5113 pg/mL (0-450)
[2025-02-22] MEDS: AMIODARONE HCL/D5W 900 MG/500 ML BAG 33.33 MG IV (04:39)
[2025-02-22] MEDS: FUROsemide 10 mg/mL SDV 4mL 40 MG IVP ×3 (07:07→21:20)
--- NOTE | 2025-02-22 07:52 | PC.NURSE ---
0440- Patient has BP of 103/75 HR 100, metoprolol 50 mg is scheduld this AM. Clarified with Dr. carlos if he would like metoprolol given or held. Per MD hold.
--- NOTE | 2025-02-22 07:54 | ANES.PREANE2 ---
Pre-Anesthetic Assessment Height/Weight: Height 1.83 m Weight 115.5 kg Temp Pulse Resp BP Pulse Ox O2 Del Method O2 Flow Rate 98.0 F 101 H 28 H 113/86 98 Nasal Cannula 2 02/22/25 07:47 02/22/25 07:47 02/22/25 07:47 02/22/25 07:47 02/22/25 07:47 02/22/25 07:47 02/21/25 08:26 Cardioversion Familial anesthetic complications: None Was Beta Ammy taken within 24 hours: N/A Was Clonidine taken within 24 hours: N/A Last intake: >8 hours, NPO for procedure Social Alcohol (Mixed drink every evening) and No tobacco Exam alert, oriented x 3 and clear to auscultation bilaterally Airway Submandibular: within normal limits Cervical ROM: within normal limits Mallampati: Class III Dentition: partials History/ROS No significant history except as noted and No significant complaints Pulmonary Chronic Obstructive Pulmonary Disease and Sleep Apnea On 4L NC, denies SOB CV/HEM Atrial Fibrillation, Arrythmia, Coronary Artery Disease, Congestive Heart Failure, Hypertension and Murmur CONCLUSIONS Normal left ventricular cavity size. Moderately reduced left ventricular systolic function with global hypokinesis, EF 39% Mild concentric left ventricular hypertrophy Stage II left ventricular diastolic dysfunction Normal right ventricular size and systolic function. Mild aortic valve stenosis Mild mitral valve regurgitation None reported Hepatic None reported GI None reported Metabolic None reported Musc/skel Lower Back Pain, Osteoarthritis/DJD and Rheumatoid Arthritis Neuropsych None reported Anesthetic Plan ASA status: 4 Anesthesia: Anesthesia Evaluation, General and MAC Risk of > 500 ml blood loss (7ml/kg in children): No Medications/Allergies Home Medications ?Medication ?Instructions ?Recorded ?Confirmed ?Last Taken ?Type doxycycline hyclate 100 mg capsule 100 mg PO DAILY 05/26/19 02/20/25 02/20/25 08:00 History rivaroxaban 20 mg tablet (Xarelto) 20 mg PO DAILY #90 tabs 03/02/21 02/20/25 02/20/25 08:00 Rx lisinopril 20 mg tablet 20 mg PO BID #30 tabs 11/17/21 02/20/25 02/20/25 08:00 Rx albuterol sulfate 90 mcg/actuation 2 inh inhalation Q6H PRN Wheezing 02/20/25 02/20/25 Unknown History aerosol inhaler (Ventolin HFA) budesonide 160 mcg-glycopyr 9 2 inh inhalation BID 02/20/25 02/20/25 02/19/25 History mcg-formot 4.8 mcg/actuation HFA inhaler (Breztri Aerosphere) metoprolol tartrate 50 mg tablet 50 mg PO BID 02/20/25 02/20/25 02/20/25 08:00 History Allergies Allergy/AdvReac Type Severity Reaction Status Date / Time No Known Allergies Allergy Unverified 05/26/19 10:35 Current Medications Generic Name Dose Route Start Last Admin Trade Name Freq PRN Reason Stop Dose Admin Acetaminophen 650 mg 02/20/25 12:55 02/21/25 21:53 Acetaminophen 325 Mg Tablet PO 650 mg Q6H PRN Administration Mild/Mod Pain Or Temp >/= 101 Aspirin 81 mg 02/20/25 16:15 02/22/25 04:39 Aspirin 81 Mg Ec Tablet PO 81 mg DAILY MYLES Administration Atorvastatin Calcium 40 mg 02/20/25 21:00 02/21/25 21:53 Atorvastatin 40 Mg Tablet PO 40 mg BEDTIME MYLES Administration Enoxaparin Sodium 120 mg 02/21/25 05:00 02/22/25 04:39 Enoxaparin 120 Mg/0.8 Ml Syringe SUBCUT 120 mg Q12H MYLES Administration Furosemide 40 mg 02/20/25 18:00 02/22/25 07:07 Furosemide 10 Mg/Ml Sdv 4ml IVP 40 mg Q12H MYLES Administration AMIODARONE HCL/D5W 900 mg in 500 mls @ 0 mls/hr 02/20/25 12:55 02/22/25 04:39 Amiodarone 900 Mg/500 Ml-D5w IV 1 mg/min .Q0M MYLES 33.33 mls/hr Protocol Administration Per Protocol Metoprolol Tartrate 50 mg 02/20/25 17:00 02/22/25 04:42 Metoprolol Tartrate 50 Mg Tablet PO Not Given BID MYLES Pantoprazole Sodium 40 mg 02/20/25 13:00 02/21/25 12:25 Pantoprazole 40 Mg Sdv IVP 40 mg Q24H MYLES Administration Potassium Chloride 20 meq 02/20/25 18:00 02/22/25 07:08 Potassium Chloride Er 20 Meq Tablet PO 20 meq Q12H MYLES Administration PFSH Anesthesia Medical History (Updated 02/20/25 @ 14:08 by Renny Kruger MD) Osteoarthritis History of prostate cancer History of MRSA infection GERD (gastroesophageal reflux disease) Atrial fibrillation HTN (hypertension) Surgical History (Updated 11/30/22 @ 12:17 by JACKIE Marin) Previous back surgery S/P total knee arthroplasty bilateral History of lung surgery Had staph infection Family History Mother Congestive heart failure (CHF) Data Anesthesia 02/22/25 02:14 02/22/25 02:14 Short CBC 02/20/25 02/21/25 02/22/25 Range/Units 10:16 04:40 02:14 WBC 8.11 8.37 9.92 (3.29-11.43) 10^3/uL Hgb 14.10 13.00 13.10 (11.27-16.99) g/dL Hct 43.4 41.2 41.0 (37-53) % MCV 109.3 H 109.3 H 107.9 H (82-101) fl Plt Count 220 202 183 (157-399) 10^3/cmm Neut % (Auto) 76.9 74.4 68.7 % Neut # (Auto) 6.23 6.22 6.81 (1.8-7.7) 10^3/uL BMP 02/20/25 02/21/25 02/22/25 10:16 04:40 02:14 Sodium 140 140 141 Potassium 3.7 3.5 4.0 Chloride 106 101 100 Carbon Dioxide 21 L 30 H 31 H BUN 18 17 21 Creatinine 0.7 0.7 1.0 Glucose 113 119 H 123 H Calcium 8.7 8.7 8.8 Cardiac Enzymes 02/20/25 02/20/25 02/20/25 Range/Units 10:16 12:16 16:53 Troponin T Baseline 34 H (0-15) ng/L Troponin T 120 Minute 31.11 H (0-15) ng/L Delta Troponin T -2.89 L (0-10) ABS# Troponin T Hi Sens 6Hr 34.74 H (0-15) ng/L Troponin T Hi Sens 6Hr Delta 0.74 (0-12) ng/L NT-Pro-B Natriuret Pep 59292 H (0-450) pg/mL 02/21/25 02/22/25 Range/Units 04:40 02:14 Troponin T Baseline (0-15) ng/L Troponin T 120 Minute (0-15) ng/L Delta Troponin T (0-10) ABS# Troponin T Hi Sens 6Hr (0-15) ng/L Troponin T Hi Sens 6Hr Delta (0-12) ng/L NT-Pro-B Natriuret Pep 6853 H 5113 H (0-450) pg/mL Liver Function 02/20/25 Range/Units 10:16 Total Bilirubin 1.2 (0.15-1.2) mg/dL AST 15 (0-40) U/L ALT 8 (0-41) U/L Alkaline Phosphatase 111 (40-130) U/L Albumin 3.7 (3.5-5.2) g/dL COVID Results 02/20/25 11:34 SARS-CoV-2 (PCR) Negative Cardiac Studies: Echocardiogram 02/20/25
--- NOTE | 2025-02-22 08:01 | W.PM.OPSUD ---
Surgery/Procedure H&P Update DATE OF PROCEDURE: February 22, 2025 DATE H&P PERFORMED: 02/20/25 H&P UPDATE INFORMATION: I have reviewed H&P completed within last 30 days PREOP DIAGNOSIS: atrial flutter PRIMARY INDICATION FOR PROCEDURE: atrial flutter with RVR PLANNED PROCEDURE: electrical cardioversion
--- NOTE | 2025-02-22 08:20 | P.PCN_ITS ---
Procedure Note: Date of procedure: 02/22/25 Pre-procedure diagnosis: atrial flutter with RVR Post-procedure diagnosis: other Procedure: The patient was sedated by the anesthesia department. Pacer pads were placed on the anterior chest to the right of the sternum and along the left scapula. 150 J of biphasic energy was given was successful cardioversion from atrial flutter with rapid ventricular response with a heart rate of 108 bpm to normal sinus rhythm with a heart rate of 75 bpm. No complications. Complications: None Condition: stable Other Information: Continue with current medical regimen Coding Level of Care Code Acute Code for [facility] Fwd
--- NOTE | 2025-02-22 08:22 | P.PN_ITS ---
Subjective 2 Subjective: Still with mild SOB Vitals/I&O/Wt Last Vital Signs Temp 98.0 F 02/22/25 07:47 Pulse 101 H 02/22/25 07:47 Resp 28 H 02/22/25 07:47 BP 113/86 02/22/25 07:47 Pulse Ox 98 02/22/25 07:47 O2 Del Method Nasal Cannula 02/22/25 07:47 O2 Flow Rate 2 02/21/25 08:26 02/21/25 02/22/25 02/22/25 22:59 06:59 14:59 Intake Total 600 / 1592.003 260.608 / 1852.611 480 / 480 Output Total 1650 / 2950 300 / 300 Balance -1050 / -1357.997 260.608 / -1097.389 180 / 180 Weight last 48 hrs Weight 254 lb 10.142 oz Weight 256 lb 6.362 oz Weight 260 lb 12.909 oz Weight 260 lb Physical Exam 2 Narrative: General: In no acute distress Neck: No jugular venous distention or carotid bruits Heart: regular rhythm, tachycardic Lungs: Normal respiratory effort with no use of intercostal muscles, clear lungs sounds to auscultation Extremities: mild edema legs Neuro: Alert and oriented x 3 Urinary Catheter Management: [place] Latex Free: Cath Placed During This Visit: yes Reason for Continuing Indwelling Catheter: Accurate Measurement of Urinary Output in Critically Ill Patients Urinary Catheter Date of Insertion: 02/20/25 Urinary Catheter Time of Insertion: 16:45 Data 02/22/25 02:14 02/22/25 02:14 A&P Assessment and plan 1. Atrial fibrillation with rapid ventricular response: 2. Acute on chronic systolic CHF (congestive heart failure): 3. HTN (hypertension): 4. History of cardioversion: 5. Atrial flutter: Plan: - diuresed another 1300 cc with no bump in Cr - still in aflutter with RVR this am - s/p successful electical cardioversion with 150 J this am to NSR - continue Lasix 40mg IV bid - can change IV amio to 400mg PO bid - LHC Sunday if there is availability - will discuss with interventionalist - will advance GDMT for CHF after more diuresis and if BP remains stable -bmp in am PDMP PDMP Reviewed: Not Reviewed Attestations 2 Medical Necessity Statement*: Will need another 2 nights past midnight in the hospital due to acute congestive heart failure with reduced ejection fraction Coding Level of Care Code Acute Code for g Fwd Diagnoses Atrial fibrillation with rapid ventricular response I48.91 Acute on chronic systolic CHF (congestive heart failure) I50.23 HTN (hypertension) I10 History of cardioversion Z92.89 Atrial flutter I48.92
--- NOTE | 2025-02-22 09:24 | ANE.PACU2 ---
Inpatient post-anesthesia follow up: Airway intact: Yes Vital signs: Temperature 98.0 F Pulse Rate 101 Respiratory Rate 28 Blood Pressure 113/86 Pulse Oximetry 98 Oxygen Delivery Me thod Nasal Cannula Oxygen Flow Rate 2 Fraction of Inspir ed Oxygen Hydration adequate: Yes Nausea and vomiting: Yes Pain level: 1 Mental status: Baseline
--- NOTE | 2025-02-22 10:22 | P.PN_ITS ---
Subjective 2 Subjective: Patient was seen this morning, status post cardioversion, alert oriented x 3, following commands, currently in normal sinus rhythm, does report shortness of breath, and edema Vitals/I&O/Wt Last Vital Signs Temp 98.0 F 02/22/25 07:47 Pulse 101 H 02/22/25 07:47 Resp 28 H 02/22/25 07:47 BP 113/86 02/22/25 07:47 Pulse Ox 98 02/22/25 07:47 O2 Del Method Nasal Cannula 02/22/25 07:47 O2 Flow Rate 2 02/21/25 08:26 02/21/25 02/22/25 02/22/25 22:59 06:59 14:59 Intake Total 600 / 1592.003 260.608 / 1852.611 480 / 480 Output Total 1650 / 2950 300 / 300 Balance -1050 / -1357.997 260.608 / -1097.389 180 / 180 Weight last 48 hrs Weight 115.5 kg Weight 116.3 kg Weight 118.3 kg Physical Exam 2 Const: COMMON NORMALS: no acute distress and patient oriented x3 Resp: COMMON NORMALS: normal respiratory effort, No retractions and No use of accessory muscles AUSCULTATION: crackles Cardio: COMMON NORMALS: regular rate, regular rhythm, S1 normal heart sound present and S2 normal heart sound present RATE: regular rate RHYTHM: r egular rhythm HEART SOUNDS: S1 normal heart sound present and S2 normal heart sound present GI: COMMON NORMALS: Normal to inspection, nondistended, normoactive bowel sounds present and non-tender Extremity: NARRATIVE EXTREMITY EXAM: 1+ edema Neuro: COMMON NORMALS: patient oriented x3 Psych: COMMON NORMALS: mental status grossly normal Urinary Catheter Management: [place] Latex Free: Cath Placed During This Visit: yes Reason for Continuing Indwelling Catheter: Accurate Measurement of Urinary Output in Critically Ill Patients Urinary Catheter Date of Insertion: 02/20/25 Urinary Catheter Time of Insertion: 16:45 Data 02/22/25 02:14 02/22/25 02:14 A&P Assessment and plan 1. Atrial fibrillation with rapid ventricular response: 2. Acute on chronic systolic CHF (congestive heart failure): Plan: Acute hypoxic respiratory failure - Secondary to CHF exacerbation, fluid overload --4.7 L so far - Blood - Monitor respiratory status closely - Lasix 40 IV twice daily with potassium placement therapy - Fluid restrictions of 1000 cc - Cardiac echo - Full code - Lovenox for DVT prophylaxis Atrial fibrillation with rapid ventricular response - Continue therapeutic Lovenox - Continue metoprolol - Amiodarone drip transition to p.o. amiodarone - Status post successful cardioversion 02/22/2025 NSTEMI CONCLUSIONS Normal left ventricular cavity size. Moderately reduced left ventricular systolic function with global hypokinesis, EF 39% Mild concentric left ventricular hypertrophy Stage II left ventricular diastolic dysfunction Normal right ventricular size and systolic function. Mild aortic valve stenosis Mild mitral valve regurgitation Plan -Aspirin, statin, beta-harlan, therapeutic Lovenox - Possible coronary angiography Sunday or Sunday based on clinical progress Full code Lovenox for DVT prophylaxis Plan for today IV diuresis status post cardioversion, plan for possible coronary angiography tomorrow based on clinical progress PDMP PDMP Reviewed: Not Reviewed Attestations 2 Medical Necessity Statement*: Patient requires hospitalization for acute hypoxic respiratory failure, CHF, atrial fibrillation, NSTEMI Diagnoses Atrial fibrillation with rapid ventricular response I48.91 Acute on chronic systolic CHF (congestive heart failure) I50.23
--- NOTE | 2025-02-22 10:49 | XRR_ITS ---
PROCEDURE INFORMATION: Exam: XR Chest Exam date and time: 02/22/2025 11:56 AM Age: 79 years old Clinical indication: Shortness of breath; Additional info: SOB TECHNIQUE: Imaging protocol: Radiologic exam of the chest. Views: 1 view. COMPARISON: CR (CHEST, ) 02/20/2025 9:57 AM FINDINGS: Lungs: Suspected atelectasis noted at the lung bases. There may be mild vascular congestion. No lobar consolidation is appreciated. Pleural spaces: Suspect small bilateral pleural effusions. Heart/Mediastinum: The heart is enlarged. Bones/joints: Unremarkable. XR/XR chest 1V portable [id number] IMPRESSION: 1. Cardiomegaly with probable mild vascular congestion. 2. Linear atelectasis at the lung bases with small pleural effusions. 3. Overall, findings are similar to that seen on prior exam.
[2025-02-22] MEDS: pantoprazole 40 mg SDV IVP (13:26)
[2025-02-22] MEDS: artificial tears Op Soln 15 mL Btl 1 DROP EYE-BOTH (16:35)
[2025-02-23] VITALS (10 sets, daily range): BP systolic 105–134; BP diastolic 68–87; PULSE 63–101; RESP 18–31; TEMP 35.9–36.7; O2SAT 97–100
[2025-02-23 03:10] LABS: Hematocrit 41.5 % (37-53); Hemoglobin 13.10 g/dL (11.27-16.99); Mean Corpuscular HGB Conc 31.6 g/dL (30-55); Mean Corpuscular Hemoglobin 34.3 pg (27-33); Mean Corpuscular Volume 108.6 fl (82-101); Nucleated Red Blood Cells % 0 %; Platelet Count 176 10^3/cmm (157-399); Red Blood Count 3.82 10^6/uL (3.85-5.65); White Blood Count 8.81 10^3/uL (3.29-11.43)
[2025-02-23 03:43] LABS: NT Pro B Type Natriuretic Pept 3920 pg/mL (0-450)
[2025-02-23 04:23] LABS: Anion Gap 14.1 (5-19); Blood Urea Nitrogen 23 mg/dL (8-23); Calcium 8.7 mg/dL (8.5-10.5); Carbon Dioxide 31 mmol/L (22-29); Chloride 99 mmol/L (98-107); Glucose 114 mg/dL (65-115); Osmolality Calculated 295 mOsm/kg (285-295); Potassium 4.1 mmol/L (3.5-5.1); Sodium 140 mmol/L (136-145)
[2025-02-23] MEDS: FUROsemide 10 mg/mL SDV 4mL 40 MG IVP ×3 (05:47→20:45)
--- NOTE | 2025-02-23 10:49 | PC.SOCIAL ---
IMM Update pg 2 of IMM updated and reviewed w/ patient. Copy provided and copy dated, initialed and placed in chart.
--- NOTE | 2025-02-23 12:30 | P.PN_ITS ---
Subjective 2 Subjective: heart cath planned denies chest pain has some SOB Vitals/I&O/Wt Last Vital Signs Temp 97.3 F L 02/23/25 11:18 Pulse 64 02/23/25 11:18 Resp 31 H 02/23/25 11:18 BP 109/74 02/23/25 11:18 Pulse Ox 98 02/23/25 11:18 O2 Del Method Nasal Cannula 02/23/25 11:18 O2 Flow Rate 2 02/22/25 10:00 02/22/25 02/23/25 02/23/25 22:59 06:59 14:59 Intake Total 939.954 / 2019.954 Output Total 1625 / 1925 800 / 2725 Balance -685.046 / 94.954 -800 / -705.046 Weight last 48 hrs Weight 112.7 kg Weight 115.5 kg Physical Exam 2 Const: COMMON NORMALS: no acute distress and patient oriented x3 Resp: COMMON NORMALS: normal respiratory effort, No retractions and No use of accessory muscles AUSCULTATION: crackles Cardio: COMMON NORMALS: regular rate, regular rhythm, S1 normal heart sound present and S2 normal heart sound present RATE: regular rate RHYTHM: r egular rhythm HEART SOUNDS: S1 normal heart sound present and S2 normal heart sound present GI: COMMON NORMALS: Normal to inspection, nondistended, normoactive bowel sounds present and non-tender Extremity: NARRATIVE EXTREMITY EXAM: 1+ edema Neuro: COMMON NORMALS: patient oriented x3 Psych: COMMON NORMALS: mental status grossly normal Urinary Catheter Management: [place] Latex Free: Cath Placed During This Visit: yes Reason for Continuing Indwelling Catheter: Accurate Measurement of Urinary Output in Critically Ill Patients Urinary Catheter Date of Insertion: 02/20/25 Urinary Catheter Time of Insertion: 16:45 Data 02/23/25 02:49 02/23/25 02:49 A&P Assessment and plan 1. Acute on chronic systolic CHF (congestive heart failure): Plan: 1. Atrial fibrillation with rapid ventricular response: 2. Acute on chronic systolic CHF (congestive heart failure): Plan: Acute hypoxic respiratory failure - Secondary to CHF exacerbation, fluid overload - Blood - Monitor respiratory status closely - Lasix 40 IV TID with potassium placement therapy - Fluid restrictions of 1000 cc - Cardiac echo - Full code - Lovenox for DVT prophylaxis Atrial fibrillation with rapid ventricular response - Continue therapeutic Lovenox - Continue metoprolol - Amiodarone drip transitioned to p.o. amiodarone - Status post successful cardioversion 02/22/2025 NSTEMI CONCLUSIONS Normal left ventricular cavity size. Moderately reduced left ventricular systolic function with global hypokinesis, EF 39% Mild concentric left ventricular hypertrophy Stage II left ventricular diastolic dysfunction Normal right ventricular size and systolic function. Mild aortic valve stenosis Mild mitral valve regurgitation Plan -Aspirin, statin, beta-harlan, therapeutic Lovenox -possible heart cath Full code Lovenox for DVT prophylaxis PDMP PDMP Reviewed: Not Reviewed Attestations 2 Medical Necessity Statement*: needs heart cath Coding Level of Care Code 01002 Diagnoses Acute on chronic systolic CHF (congestive heart failure) I50.23
[2025-02-23] MEDS: pantoprazole 40 mg SDV IVP (13:18)
--- NOTE | 2025-02-23 13:39 | P.PN_ITS ---
<Statement entered by Chet Sawyer MD - 02/24/25 12:44> Patient was evaluated and cared for in conjunction with the advanced practice practitioner. Due to computer system upgrade I was not able to add my attestation note to the chart yesterday and therefore am adding it today. I personally saw the patient and reviewed the chart and all pertinent data yesterday. I discussed the patient in detail with the advanced practice practitioner yesterday. Please see their note for complete assessment and agreed upon plan of care for the patient. Subjective 2 Subjective: Patient appears to still be in a flutter. Rates are currently controlled. Currently on amiodarone p.o. 400 twice daily. He states he doesn't have much shortness of breath. Edema is still present. O2 sat 98% 2 L nasal cannula. Denies any chest pain at this time. He is -885 over 35 hours. Currently on lasix 40 TID. Vitals/I&O/Wt Last Vital Signs Temp 97.3 F L 02/23/25 11:18 Pulse 64 02/23/25 11:18 Resp 31 H 02/23/25 11:18 BP 109/74 02/23/25 11:18 Pulse Ox 98 02/23/25 11:18 O2 Del Method Nasal Cannula 02/23/25 11:18 O2 Flow Rate 2 02/23/25 10:00 02/22/25 02/23/25 02/23/25 22:59 06:59 14:59 Intake Total 939.954 / 2019.954 600 / 600 Output Total 1625 / 1925 800 / 2725 Balance -685.046 / 94.954 -800 / -705.046 600 / 600 Weight last 48 hrs Weight 248 lb 7.375 oz Weight 254 lb 10.142 oz Physical Exam 2 Narrative: General: No apparent distress HENMT: normoceophalic Neck: No carotid bruit bilaterally Muskuloskeletal: Full ROM Respiratory: Normal respiratory effort, clear throughout all lung woodson, no use of accessory muscles Cardio: No JVD, regular rate, regular rhythm, S1 S2 normal, no murmurs, peripheral pulses 2+ radial palpated bilaterally GI: Normal to inspection, nondistended Extremities: Full ROM, normal, normal capillary refill, no cyanosis, 2+ pitting edema bilateral lower extremities Neuro: Alert and oriented x4, no focal motor deficits Psych: Affect normal, denies suicidal ideation, mental status grossly normal Skin: No rashes or lesions noted, no wounds Urinary Catheter Management: [place] Latex Free: Cath Placed During This Visit: yes Reason for Continuing Indwelling Catheter: Accurate Measurement of Urinary Output in Critically Ill Patients Urinary Catheter Date of Insertion: 02/20/25 Urinary Catheter Time of Insertion: 16:45 Data 02/23/25 02:49 02/23/25 02:49 A&P Assessment and plan 1. Atrial fibrillation with rapid ventricular response: 2. Acute on chronic systolic CHF (congestive heart failure): 3. HTN (hypertension): 4. History of cardioversion: 5. Atrial flutter: Plan: Plan is to continue diuresing patient. Continue Lasix 40 TID. Continue amio 400 BID, [place]. 75 BID. Rates are controlled at this time. Patient is not short of breath and has diuresed well. Recommend proceeding with Left heart cath possible PCI. We plan on doing thos around 6 AM tomorrow. Patient is in agreement with this. PDMP PDMP Reviewed: Not Reviewed Attestations 2 Medical Necessity Statement*: Deferred to primary. Coding Level of Care Code Acute Code for [facility] Fwd Diagnoses Atrial fibrillation with rapid ventricular response I48.91 Acute on chronic systolic CHF (congestive heart failure) I50.23 HTN (hypertension) I10 History of cardioversion Z92.89 Atrial flutter I48.92
[2025-02-24] VITALS (31 sets, daily range): BP systolic 93–141; BP diastolic 63–90; PULSE 61–117; RESP 11–31; TEMP 36.6–36.8; O2SAT 89–99
[2025-02-24] MEDS: FUROsemide 10 mg/mL SDV 4mL 40 MG IVP ×3 (04:49→21:53)
--- NOTE | 2025-02-24 05:28 | XACV_ITS ---
Exam Room: 2 Ht: 183 cm Wt: 112 kg BSA: 2.43 m2 Gender: Male : 1945 Any Known Allergies: No known allergies Exam Priority: Routine Procedure(s): Procedure Description: Diagnostic procedure Procedure Description: Left Heart Catheterization Procedure Description: Left ventriculography Procedure Description: Coronary Angiography ZINAMEG Williamson; Diagnostic Cath Status: Elective Diagnostic Findings * No disease noted in the Left Main, Left Anterior Descending, Right, or Circumflex coronary arteries. * Coronary angiography shows right dominance. Conclusions 1. No disease noted in the Left Main, Left Anterior Descending, Right, or Circumflex coronary arteries. 2. All amin are hypokinetic. 3. Mild left ventricular systolic dysfunction. Ejection fraction of 40%. Recommendations * Continue current medical management and risk factor modification. Diagnostic RX Recommendation: medical therapy and/or counseling Ventriculography Ejection Fraction: 40.0 % Pressures Phase:Rest AO : 121 / 76 ( 94 ) @ 10:31:00 AM 116 / 67 ( 87 ) @ 10:39:00 AM 116 / 67 ( 87 ) @ 10:39:00 AM LV : 124 / 4 / 25 @ 10:38:00 AM 126 / 7 / 27 @ 10:39:00 AM 123 / 2 / 24 @ 10:39:00 AM Valves Phase:DefaultPhase AV : 4.0 @ 10:44:59 AM AV Mean Gradient: 13.0 @ 10:44:59 AM Clinical Evaluation EBL: 5mL-10mL Procedural Details Procedure Consent Obtained. Current Diagnosis : Chest Pain. Pre-Procedure Time Out. Identified patient by full name and date of as verbalized by the patient/guarantor. Does the consent match the physician's order: Yes. Accurate & Complete Informed Consent: Yes. Inpatient/Outpatient History & Physical on Chart: Yes. If H&P is completed, is and addenduem needed: No; If yes, is the addendum complete: N/A. Visualize and Verify Site with Patient/Guarantor: N/A. Relevant Radiology Images available: Yes. Pre-op teaching completed and patient verbalized understanding. The risks, benefits, and alternatives of sedation and/or procedure were discussed by physician. The patient agrees to continue. Procedure started. [facility] Clinical Fraility Score: 4: Vulnerable. Chief Nursing Executive Indications: Suspected CAD. Chest Pain Symptom Assessment: Atypical Angina. Correct patient, site and procedure confirmed by cath team. Current diagnosis: Chest Pain. PERRLA. Strong, equal hand pv design engineer bilaterally. Lungs clear x 5 lobes. IV Site on Arrival: 20 gauge in the right anticubital. IV Fluids: 0.9% NaCl at KVO. 0 mL infused prior to lab aide. Oxygen started at 2liters/min via nasal canula. Pre Procedural Pulses: right radial was 2+. right groin was prepped with chloroprep then draped in the usual sterile fashion. right radial was prepped with chloroprep then draped in the usual sterile fashion. Baseline sample Acquired. HR: 63 BPM. Physician arrived. Physician scrubbed in. Immediate Pre-Procedure Time Out. Correct Patient: Yes; Correct Procedure: Yes; Correct Site: Yes; Correct Patient Position: Yes; Correct Supplies: Yes; Dried Flammable Prep: Yes; Blood Products Available: N/A;. Lidocaine 1% infiltrated to the right radial. Arterial access obtained. A 5 [place] Constantino catheter in over wire. Multiple views taken of left coronary artery. Catheter redirected to the RCA. Multiple views taken of right coronary artery. Catheter removed over the exchange wire. A 5 [place] Angled Pig catheter in over wire. EDP Sample taken: LV 124/4,25; HR: 62 BPM; SpO2: 99%. LV gram performed in [place] @ 10 mL/second for a total of 30 mL. EDP Sample taken: LV 126/7,27; HR: 62 BPM; SpO2: 100%. Pullback taken: LV 123/2,24; AO 116/67(87); Mean: 13mmHg, Peak to Peak: 4mmHg, SEP: 13sec/min; HR: 58 BPM; SpO2: 99%. Catheter removed over the exchange wire. Vital chart was stopped. A TR Band was successful obtaining hemostatsis at the Right Radial artery insertion site. Post Procedure: Pulses reassessed and unchanged. PERRLA. Strong, equal hand pv design engineer bilaterally. No VTE prophylaxis required. Medication's Wasted: Lidocaine 1% = 18 mL. Medication's Wasted: Nitro = 49.8 mcg. Medication's Wasted: Other = Fentanyl 75mcg Versed 1 mg. Total IV fluids: 25 mL. Post-op diagnosis: Non-obstructive CAD. Complications: None. Estimated blood loss: 5mL-10mL. Responsiveness - Normal response to verbal stimuli; alert and oriented, PERRLA. Airway - Unaffected, no intervention required; spontaneous ventilation. Circulation: W/N/L, pulses unchanged. Nausea/Vomiting: No. Procedure completed. Patient transferred by bed to 1st floor. Access Site Site: Right Radial artery Sheath Size: 6 Fr Hemostasis Method: TR Band Hemostasis Success: Successful Procedure Medications Start: 10:17 AM Stop: 10:17 AM Medication: Versed 1 mg and Fentanyl 25 mcg Amount: 1 Route: I.V. Start: 10:28 AM Stop: 10:28 AM Medication: Nitrogylcerin Amount: 200 mcg Route: I.A. Start: 10:29 AM Stop: 10:29 AM Medication: Heparin Amount: 5000 units Route: I.V. I, the attending physician, have reviewed and verified all procedure medications. Yes, all medications given per verbal order History/Risk Factors Hypertension: Yes Dyslipidemia: No Peripheral Arterial Disease (PAD): No Myocardial Infarction (GA): No Obesity: No Renal Disease: No Prior Interventions PCI: No CABG: No Valve Surgery: No Report Signatures Finalized by Floridalma Williamson MD on 02/24/2025 10:55 AM
[2025-02-24 07:23] LABS: Hematocrit 41.3 % (37-53); Hemoglobin 13.10 g/dL (11.27-16.99); Mean Corpuscular HGB Conc 31.7 g/dL (30-55); Mean Corpuscular Hemoglobin 34.7 pg (27-33); Mean Corpuscular Volume 109.3 fl (82-101); Nucleated Red Blood Cells % 0 %; Platelet Count 196 10^3/cmm (157-399); Red Blood Count 3.78 10^6/uL (3.85-5.65); White Blood Count 7.12 10^3/uL (3.29-11.43)
[2025-02-24 07:52] LABS: Anion Gap 13.2 (5-19); Blood Urea Nitrogen 25 mg/dL (8-23); Calcium 9.1 mg/dL (8.5-10.5); Carbon Dioxide 34 mmol/L (22-29); Chloride 98 mmol/L (98-107); Glucose 100 mg/dL (65-115); NT Pro B Type Natriuretic Pept 2186 pg/mL (0-450); Osmolality Calculated 296 mOsm/kg (285-295); Potassium 4.2 mmol/L (3.5-5.1); Sodium 141 mmol/L (136-145)
--- NOTE | 2025-02-24 10:20 | W.PM.OPSUD ---
Surgery/Procedure H&P Update DATE OF PROCEDURE: February 24, 2025 DATE H&P PERFORMED: 02/20/25 H&P UPDATE INFORMATION: I have reviewed H&P completed within last 30 days, I have examined patient prior to procedure and No changes to prior documentation PREOP DIAGNOSIS: New onset of heart failure PRIMARY INDICATION FOR PROCEDURE: Moderately depressed left ventricular ejection fraction Worsening of heart failure PLANNED PROCEDURE: Operation Date: 02/24/25 06:00 Proposed Procedures p Cardiac Catheterization(Not Applicable) - Floridalma Williamson MD PATIENT REASSESSED PRIOR TO SEDATION, WITH NO CHANGE NOTED: Yes PHYSICAL EXAM: alert, oriented x 3, clear to auscultation bilaterally, regular rate & rhythm and operative site marked AIRWAY EVAL/ANESTHESIA PLAN: ASA II and Patient agrees to continue as planned ADDITIONAL INFORMATION: Patient has been explained all risk-benefit and alternative for the procedure. Patient restand 2% risk of stroke major bleed. Patient restand 5% risk of minor bleeding bruising infection hematoma contrast-induced nephropathy urgent or emergent vascular or bypass surgery. Patient agrees to it and would like to proceed with it.
--- NOTE | 2025-02-24 11:51 | P.PN_ITS ---
Subjective 2 Subjective: s/p heart cath denies chest pain, wrist ok Vitals/I&O/Wt Last Vital Signs Temp 97.8 F 02/24/25 07:46 Pulse 62 02/24/25 07:46 Resp 23 H 02/24/25 07:46 BP 114/71 02/24/25 07:46 Pulse Ox 97 02/24/25 08:51 O2 Del Method Room Air 02/24/25 08:51 O2 Flow Rate 2 02/24/25 07:36 02/23/25 02/24/25 02/24/25 22:59 06:59 14:59 Intake Total 480 / 1080 Output Total 1725 / 1725 350 / 2075 900 / 900 Balance -1245 / -645 -350 / -995 -900 / -900 Weight last 48 hrs Weight 113.8 kg Weight 112.7 kg Physical Exam 2 Const: COMMON NORMALS: no acute distress and patient oriented x3 Resp: COMMON NORMALS: normal respiratory effort, No retractions and No use of accessory muscles AUSCULTATION: crackles Cardio: COMMON NORMALS: regular rate, regular rhythm, S1 normal heart sound present and S2 normal heart sound present RATE: regular rate RHYTHM: r egular rhythm HEART SOUNDS: S1 normal heart sound present and S2 normal heart sound present GI: COMMON NORMALS: Normal to inspection, nondistended, normoactive bowel sounds present and non-tender Extremity: NARRATIVE EXTREMITY EXAM: 1+ edema, right wrist band in place Neuro: COMMON NORMALS: patient oriented x3 Psych: COMMON NORMALS: mental status grossly normal Urinary Catheter Management: [place] Latex Free: Cath Placed During This Visit: yes Reason for Continuing Indwelling Catheter: Accurate Measurement of Urinary Output in Critically Ill Patients Urinary Catheter Date of Insertion: 02/20/25 Urinary Catheter Time of Insertion: 16:45 Data 02/24/25 07:10 02/24/25 07:10 A&P Assessment and plan 1. Atrial fibrillation: 2. Murmur, cardiac: 3. Acute on chronic systolic CHF (congestive heart failure): Plan: 1. Acute on chronic systolic CHF (congestive heart failure): Plan: 1. Atrial fibrillation with rapid ventricular response: 2. Acute on chronic systolic CHF (congestive heart failure): Plan: Acute hypoxic respiratory failure - Secondary to CHF exacerbation, fluid overload - Blood - Monitor respiratory status closely - Lasix 40 IV TID with potassium placement therapy - Fluid restrictions of 1000 cc - Cardiac echo - Full code - Lovenox for DVT prophylaxis Atrial fibrillation with rapid ventricular response - Continue therapeutic Lovenox - Continue metoprolol - Amiodarone drip transitioned to p.o. amiodarone - Status post successful cardioversion 02/22/2025 NSTEMI CONCLUSIONS Normal left ventricular cavity size. Moderately reduced left ventricular systolic function with global hypokinesis, EF 39% Mild concentric left ventricular hypertrophy Stage II left ventricular diastolic dysfunction Normal right ventricular size and systolic function. Mild aortic valve stenosis Mild mitral valve regurgitation Plan -Aspirin, statin, beta-harlan, Lovenox -s/p heart cath . no intervention dc per cardiology ?DC soon Full code Lovenox for DVT prophylaxis PDMP PDMP Reviewed: Not Reviewed Attestations 2 Medical Necessity Statement*: post cath, afib Coding Level of Care Code 07699 Diagnoses Atrial fibrillation I48.91 Murmur, cardiac R01.1 Acute on chronic systolic CHF (congestive heart failure) I50.23
[2025-02-24] MEDS: pantoprazole 40 mg SDV IVP (13:36)
--- NOTE | 2025-02-24 17:30 | PC.NURSE ---
Patients blood pressure has been running soft, Rosy Carbajal notified due to concerns for hypotension with Metoprolol 75mg and Entresto due at the same time. Received orders to hold the entresto and retime metoprolol to 2100
[2025-02-25] VITALS (13 sets, daily range): BP systolic 103–119; BP diastolic 56–78; PULSE 88–96; RESP 14–26; TEMP 36.6–37.1; O2SAT 91–98
[2025-02-25] MEDS: FUROsemide 10 mg/mL SDV 4mL 40 MG IVP ×3 (05:03→22:06)
--- NOTE | 2025-02-25 09:24 | PC.SOCIAL ---
IMM Update pg 2 of IMM Updated and reviewed w/ patient. Copy provided and copy dated, initialed and placed in chart.
--- NOTE | 2025-02-25 11:45 | P.PN_ITS ---
Subjective 2 Subjective: feels better denies chest pain Vitals/I&O/Wt Last Vital Signs Temp 97.9 F 02/25/25 07:48 Pulse 95 02/25/25 09:18 Resp 16 02/25/25 09:18 BP 115/78 02/25/25 07:48 Pulse Ox 95 02/25/25 09:18 O2 Del Method Room Air 02/25/25 09:18 O2 Flow Rate 1 02/25/25 04:00 02/24/25 02/25/25 02/25/25 22:59 06:59 14:59 Intake Total 840 / 1200 1240 / 2440 120 / 120 Output Total 2700 / 3600 850 / 4450 1325 / 1325 Balance -1860 / -2400 390 / -2010 -1205 / -1205 Weight last 48 hrs Weight 110.3 kg Weight 113.8 kg Physical Exam 2 Const: COMMON NORMALS: no acute distress and patient oriented x3 Resp: COMMON NORMALS: normal respiratory effort, No retractions and No use of accessory muscles AUSCULTATION: crackles Cardio: COMMON NORMALS: regular rate, regular rhythm, S1 normal heart sound present and S2 normal heart sound present RATE: regular rate RHYTHM: r egular rhythm HEART SOUNDS: S1 normal heart sound present and S2 normal heart sound present GI: COMMON NORMALS: Normal to inspection, nondistended, normoactive bowel sounds present and non-tender Extremity: NARRATIVE EXTREMITY EXAM: 1+ edema, right wrist band in place Neuro: COMMON NORMALS: patient oriented x3 Psych: COMMON NORMALS: mental status grossly normal Urinary Catheter Management: [place] Latex Free: Cath Placed During This Visit: yes Reason for Continuing Indwelling Catheter: Accurate Measurement of Urinary Output in Critically Ill Patients Urinary Catheter Date of Insertion: 02/20/25 Urinary Catheter Time of Insertion: 16:45 Data 02/24/25 07:10 02/24/25 07:10 A&P Assessment and plan 1. Atrial flutter: Plan: 1. Atrial fibrillation with rapid ventricular response: 2. Acute on chronic systolic CHF (congestive heart failure): Plan: Acute hypoxic respiratory failure - Secondary to CHF exacerbation, fluid overload - Monitor respiratory status closely - Lasix 40 IV TID with potassium placement therapy - Fluid restrictions of 1000 cc - Cardiac echo - Full code - Lovenox for DVT prophylaxis Atrial fibrillation with rapid ventricular response - Continue therapeutic Lovenox - Continue metoprolol - Amiodarone drip transitioned to p.o. amiodarone - Status post successful cardioversion 02/22/2025 NSTEMI CONCLUSIONS Normal left ventricular cavity size. Moderately reduced left ventricular systolic function with global hypokinesis, EF 39% Mild concentric left ventricular hypertrophy Stage II left ventricular diastolic dysfunction Normal right ventricular size and systolic function. Mild aortic valve stenosis Mild mitral valve regurgitation Plan -Aspirin, statin, beta-harlan, Lovenox -s/p heart cath . no intervention dc per cardiology will need to discuss with cardiology regarding lasix, lovenox dosing Full code Lovenox for DVT prophylaxis PDMP PDMP Reviewed: Not Reviewed Attestations 2 Medical Necessity Statement*: cardiology clearance Coding Level of Care Code 23755 Diagnoses Atrial flutter I48.92
[2025-02-25] MEDS: pantoprazole 40 mg SDV IVP (12:35)
--- NOTE | 2025-02-25 13:42 | ECG_ITS ---
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 Measurements Intervals [place] Rate: 107 P: 0 NV: 0 QRS: -57 QRSD: 140 T: 81 QT: 399 QTc: 535 Interpretive Statements sinus tachycardia with a first-degree AV block occasional PACs LEFT AXIS DEVIATION [QRS AXIS < -30] LEFT BUNDLE BRANCH BLOCK [120+ ms QRS DURATION, 80+ ms Q/S IN V1/V2, 85+ ms R IN I/aVL/V5/V6] Compared to ECG 02/20/2025 17:05:58 Left bundle-branch block now present Atrial flutter no longer present Intraventricular conduction delay no longer present Myocardial infarct finding no longer present Electronically Signed On 02-25-2025 23:48:14 PRODUCTION EXPEDITER by Yesenia Quezada M.D. [email or web address]
--- NOTE | 2025-02-25 14:08 | PC.NURSE ---
Rosy Carbajal entered a dose of digoxin 125 mcg IVP for 2099. He is to have a dig level drawn prior and if the level is elevated hold the 2100 dose.
[2025-02-25] MEDS: digoxin 250 mcg/ml INJ 2 mL IVP (14:39)
--- NOTE | 2025-02-25 15:09 | P.PN_ITS ---
<Statement entered by Floridalma Williamson MD - 02/25/25 18:53> Patient was evaluated and cared for in conjunction with an advanced practice practitioner. I personally examined the patient and reviewed the chart and all pertinent data including imaging, telemetry, and laboratory results. I discussed the patient in detail with the advanced practice practitioner. Please see their note for complete H&P testing result and agreed upon plan of care for the patient. Subjective 2 Subjective: Patient is still in A-fib. Rates are on the higher side. His heart rate does increase when he gets up and moves around he continues to have shortness of breath with that. He is -1710 over 24 hours. Renal function is stable. -8500 cumulative. Lungs are clear continues to have some lower extremity edema. Still has a lot of shortness of breath on exertion. Entresto was held last night due to hypotension. Today he did get his first dose this morning. Blood pressure stable. Vitals/I&O/Wt Last Vital Signs Temp 97.9 F 02/25/25 07:48 Pulse 88 02/25/25 12:00 Resp 24 H 02/25/25 12:00 BP 110/70 02/25/25 12:00 Pulse Ox 98 02/25/25 12:00 O2 Del Method Room Air 02/25/25 09:18 O2 Flow Rate 1 02/25/25 04:00 02/25/25 02/25/25 02/25/25 06:59 14:59 22:59 Intake Total 1240 / 2440 360 / 360 Output Total 850 / 4450 1325 / 1325 Balance 390 / -2010 -965 / -965 Weight last 48 hrs Weight 243 lb 2.718 oz Weight 250 lb 14.177 oz Physical Exam 2 Narrative: General: No apparent distress HENMT: normoceophalic Neck: No carotid bruit bilaterally Muskuloskeletal: Full ROM Respiratory: Normal respiratory effort, clear throughout all lung woodson, no use of accessory muscles Cardio: No JVD, regular rate, regular rhythm, S1 S2 normal, no murmurs, peripheral pulses 2+ radial palpated bilaterally GI: Normal to inspection, nondistended Extremities: Full ROM, normal, normal capillary refill, no cyanosis, 2+ pitting edema bilateral lower extremities Neuro: Alert and oriented x4, no focal motor deficits Psych: Affect normal, denies suicidal ideation, mental status grossly normal Skin: No rashes or lesions noted, no wounds Urinary Catheter Management: [place] Latex Free: Cath Placed During This Visit: yes Reason for Continuing Indwelling Catheter: Accurate Measurement of Urinary Output in Critically Ill Patients Urinary Catheter Date of Insertion: 02/20/25 Urinary Catheter Time of Insertion: 16:45 Data 02/24/25 07:10 02/24/25 07:10 A&P Assessment and plan 1. Atrial fibrillation with rapid ventricular response: 2. Acute on chronic systolic CHF (congestive heart failure): 3. HTN (hypertension): 4. History of cardioversion: 5. Atrial flutter: Plan: Plan is to continue diuresing patient. Continue Lasix 40 TID. Continue amio 400 BID, Metop. 75 BID. Patient continues to have shortness of breath while walking. Heart rate increases significantly while walking. We are going to give patient 250 mcg of digoxin now repeat in 8 hours 125 mcg of digoxin. Stop post cath fluids. Will get dig level between doses and if elevated will hold second dose. Continue strict I&O and monitor renal function. Will hold Entresto for now due to hypotension. PDMP PDMP Reviewed: Not Reviewed Attestations 2 Medical Necessity Statement*: Deferred to primary. Coding Level of Care Code Acute Code for [facility] Diagnoses Atrial fibrillation with rapid ventricular response I48.91 Acute on chronic systolic CHF (congestive heart failure) I50.23 HTN (hypertension) I10 History of cardioversion Z92.89 Atrial flutter I48.92
[2025-02-26] VITALS (55 sets, daily range): BP systolic 93–127; BP diastolic 54–82; PULSE 75–120; RESP 13–36; TEMP 36.6–36.8; O2SAT 84–97
[2025-02-26 00:29] LABS: Digoxin 0.3 ng/mL (0.6-1.2)
--- NOTE | 2025-02-26 00:56 | PC.NURSE ---
Addendum entered by Naye Carbajal RN 02/26/25 01:13: called lab about results 3 times at 2145, 2300, and 0030 Original Note: per lab the machine that runs dig levels were down until 0030, in results of that this nurse did not give dig until the level resulted, the dig level resulted at 0050 which was 0.3, at the time of resulting, this nurse had to replace the one time order with a new one time order to be able to pull the medication
[2025-02-26] MEDS: digoxin 250 mcg/ml INJ 2 mL 125 MCG IVP ×2 (01:10→10:44)
[2025-02-26] MEDS: FUROsemide 10 mg/mL SDV 4mL 40 MG IVP ×3 (05:22→20:40)
[2025-02-26 09:12] LABS: Hematocrit 48.0 % (37-53); Hemoglobin 15.90 g/dL (11.27-16.99); Mean Corpuscular HGB Conc 33.1 g/dL (30-55); Mean Corpuscular Hemoglobin 34.5 pg (27-33); Mean Corpuscular Volume 104.1 fl (82-101); Nucleated Red Blood Cells % 0 %; Platelet Count 242 10^3/cmm (157-399); Red Blood Count 4.61 10^6/uL (3.85-5.65); White Blood Count 8.50 10^3/uL (3.29-11.43)
[2025-02-26 09:31] LABS: Anion Gap 13.2 (5-19); Blood Urea Nitrogen 21 mg/dL (8-23); Calcium 9.4 mg/dL (8.5-10.5); Carbon Dioxide 33 mmol/L (22-29); Chloride 95 mmol/L (98-107); Glucose 139 mg/dL (65-115); Magnesium 2.1 mg/dL (1.7-2.3); Osmolality Calculated 289 mOsm/kg (285-295); Potassium 4.2 mmol/L (3.5-5.1); Sodium 137 mmol/L (136-145)
--- NOTE | 2025-02-26 10:24 | P.PN_ITS ---
<Statement entered by Floridalma Williamson MD - 02/26/25 17:34> Patient was evaluated and cared for in conjunction with an advanced practice practitioner. I personally examined the patient and reviewed the chart and all pertinent data including imaging, telemetry, and laboratory results. I discussed the patient in detail with the advanced practice practitioner. Please see their note for complete H&P testing result and agreed upon plan of care for the patient. Subjective 2 Subjective: Patient is still significantly short of breath today. Heart rates are still in the 90s. Dig level was low. He did receive 250 mcg loading dose then 125 mcg 8 hours after and is going to receive 125 mcg this a.m. On exam he appears euvolemic. He is -12 L over his hospital stay and -3415 over 24 hours. Creatinine remained stable at 1.1 BUN is 21. He gets short of breath on exertion relieved with rest. Oxygen saturation 97% on room air. Chest x-ray looks clear. Still aflutter. -3415 over 24 hours -12 L over the stay. Vitals/I&O/Wt Last Vital Signs Temp 98.1 F 02/26/25 07:39 Pulse 97 02/26/25 07:39 Resp 21 H 02/26/25 07:39 BP 107/76 02/26/25 07:39 Pulse Ox 97 02/26/25 07:39 O2 Del Method Room Air 02/26/25 04:00 O2 Flow Rate 1 02/25/25 04:00 02/25/25 02/26/25 02/26/25 22:59 06:59 14:59 Intake Total 360 / 720 240 / 960 360 / 360 Output Total 1400 / 2725 1650 / 4375 Balance -1040 / -2005 -1410 / -3415 360 / 360 Weight last 48 hrs Weight 230 lb 2.601 oz Weight 243 lb 2.718 oz Physical Exam 2 Narrative: General: No apparent distress HENMT: normoceophalic Neck: No carotid bruit bilaterally Muskuloskeletal: Full ROM Respiratory: Normal respiratory effort, bibasilar crackles, no use of accessory muscles Cardio: No JVD, regular rate, regular rhythm, S1 S2 normal, no murmurs, peripheral pulses 2+ radial palpated bilaterally GI: Normal to inspection, nondistended Extremities: Full ROM, normal, normal capillary refill, no cyanosis, 2+ pitting edema bilateral lower extremities Neuro: Alert and oriented x4, no focal motor deficits Psych: Affect normal, denies suicidal ideation, mental status grossly normal Skin: No rashes or lesions noted, no wounds Urinary Catheter Management: [place] Latex Free: Cath Placed During This Visit: yes Reason for Continuing Indwelling Catheter: Accurate Measurement of Urinary Output in Critically Ill Patients Urinary Catheter Date of Insertion: 02/20/25 Urinary Catheter Time of Insertion: 16:45 Data 02/26/25 08:59 02/26/25 08:59 A&P Assessment and plan 1. Atrial fibrillation with rapid ventricular response: 2. Acute on chronic systolic CHF (congestive heart failure): 3. HTN (hypertension): 4. History of cardioversion: 5. Atrial flutter: Plan: Plan is to continue diuresing patient. Continue Lasix 40 TID. He is diuresing well and -12 L over this stay. -3415 over 24 hours. Increase amio to 400 TID, Continue Metop. 75 BID. Patient continues to have shortness of breath while walking. Heart rate increases significantly while walking. Digoxin IV x3 doses given without improvement in heart rate. Will hold Entresto for now due to hypotension. If patient has not converted by tomorrow by loading the amio, plan it to cardiovert him again. We will keep him NPO after midnight. PDMP PDMP Reviewed: Not Reviewed Attestations 2 Medical Necessity Statement*: Deferred to primary. Coding Level of Care Code Acute Code for [facility] Diagnoses Atrial fibrillation with rapid ventricular response I48.91 Acute on chronic systolic CHF (congestive heart failure) I50.23 HTN (hypertension) I10 History of cardioversion Z92.89 Atrial flutter I48.92
--- NOTE | 2025-02-26 11:58 | XR_ITS ---
WS: [id number] Exam: XR chest 1V portable [id number] Date/Time of Exam: 02/26/2025 12:21 PM Reason For Exam: shortness of breath Comparison 02/22/2025. Lungs are fully expanded and clear. Mild chronic elevation of the RIGHT diaphragm. Unremarkable cardiomediastinal silhouette for technique. Bony structures are intact. Advanced DJD of both shoulders. XR/XR chest 1V portable [id number] IMPRESSION: 1. No acute cardiopulmonary finding.
[2025-02-26] MEDS: pantoprazole 40 mg SDV IVP (13:54)
--- NOTE | 2025-02-26 16:00 | ECG_ITS ---
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 Measurements Intervals [place] Rate: 79 P: 0 MS: 0 QRS: -53 QRSD: 135 T: 106 QT: 425 QTc: 490 Interpretive Statements ATRIAL FLUTTER with variable block LEFT AXIS DEVIATION [QRS AXIS < -30] INTRAVENTRICULAR CONDUCTION DELAY [130+ ms QRS DURATION] POSSIBLE ANTERIOR MYOCARDIAL INFARCTION , OF INDETERMINATE AGE [30 ms Q WAVE IN V3/V4, OR R < 0.2 mV IN V4] Compared to ECG 02/25/2025 14:11:47 Intraventricular conduction delay now present Myocardial infarct finding now present Sinus tachycardia no longer present Left bundle-branch block no longer present Electronically Signed On 02-27-2025 18:52:14 INTEGRATED MARKETING SPECIALIST by Yesenia Quezada M.D. [email or web address]
--- NOTE | 2025-02-26 16:04 | P.PN_ITS ---
Subjective 2 Subjective: feels more sob on O2 Vitals/I&O/Wt Last Vital Signs Temp 98.1 F 02/26/25 07:39 Pulse 117 H 02/26/25 14:45 Resp 16 02/26/25 10:00 BP 93/67 02/26/25 14:45 Pulse Ox 96 02/26/25 14:45 O2 Del Method Nasal Cannula 02/26/25 14:45 O2 Flow Rate 1 02/26/25 14:45 02/26/25 02/26/25 02/26/25 06:59 14:59 22:59 Intake Total 240 / 960 600 / 600 Output Total 1650 / 4375 1100 / 1100 Balance -1410 / -3415 -500 / -500 Weight last 48 hrs Weight 104.4 kg Weight 110.3 kg Physical Exam 2 Const: COMMON NORMALS: no acute distress and patient oriented x3 Resp: COMMON NORMALS: normal respiratory effort, No retractions and No use of accessory muscles AUSCULTATION: crackles Cardio: COMMON NORMALS: regular rate, regular rhythm, S1 normal heart sound present and S2 normal heart sound present RATE: regular rate RHYTHM: r egular rhythm HEART SOUNDS: S1 normal heart sound present and S2 normal heart sound present GI: COMMON NORMALS: Normal to inspection, nondistended, normoactive bowel sounds present and non-tender Extremity: NARRATIVE EXTREMITY EXAM: 1+ edema, right wrist band in place Neuro: COMMON NORMALS: patient oriented x3 Psych: COMMON NORMALS: mental status grossly normal Urinary Catheter Management: [place] Latex Free: Cath Placed During This Visit: yes Reason for Continuing Indwelling Catheter: Accurate Measurement of Urinary Output in Critically Ill Patients Urinary Catheter Date of Insertion: 02/20/25 Urinary Catheter Time of Insertion: 16:45 Data 02/26/25 08:59 02/26/25 08:59 A&P Assessment and plan 1. Atrial fibrillation with rapid ventricular response: 2. Acute on chronic systolic CHF (congestive heart failure): Plan: 1. Atrial fibrillation with rapid ventricular response: 2. Acute on chronic systolic CHF (congestive heart failure): Plan: Acute hypoxic respiratory failure - Secondary to CHF exacerbation, fluid overload - Monitor respiratory status closely - Lasix 40 IV TID with potassium placement therapy - Fluid restrictions of 1000 cc -cxr reviewed Atrial fibrillation with rapid ventricular response - Continue therapeutic Lovenox - Continue metoprolol - Amiodarone drip transitioned to p.o. amiodarone - cardioversion 02/22/2025--> repeat per cardiolgoy NSTEMI CONCLUSIONS Normal left ventricular cavity size. Moderately reduced left ventricular systolic function with global hypokinesis, EF 39% Mild concentric left ventricular hypertrophy Stage II left ventricular diastolic dysfunction Normal right ventricular size and systolic function. Mild aortic valve stenosis Mild mitral valve regurgitation Plan -Aspirin, statin, beta-harlan, Lovenox -s/p heart cath . no intervention dc per cardiology PDMP PDMP Reviewed: Not Reviewed Attestations 2 Medical Necessity Statement*: diuresis Coding Level of Care Code 86269 Diagnoses Atrial fibrillation with rapid ventricular response I48.91 Acute on chronic systolic CHF (congestive heart failure) I50.23
[2025-02-27] VITALS (9 sets, daily range): BP systolic 97–110; BP diastolic 65–81; PULSE 87–102; RESP 19–27; TEMP 36.5–36.7; O2SAT 91–97; BMI 31.1
[2025-02-27] MEDS: FUROsemide 10 mg/mL SDV 4mL 40 MG IVP ×3 (05:15→20:24)
[2025-02-27 07:11] LABS: Digoxin 1.3 ng/mL (0.6-1.2)
--- NOTE | 2025-02-27 08:16 | ECG_ITS ---
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 Measurements Intervals [place] Rate: 91 P: 132 ME: 266 QRS: -48 QRSD: 142 T: 82 QT: 388 QTc: 479 Interpretive Statements SINUS RHYTHM WITH FIRST DEGREE AV BLOCK LEFT AXIS DEVIATION [QRS AXIS < -30] LEFT BUNDLE BRANCH BLOCK [120+ ms QRS DURATION, 80+ ms Q/S IN V1/V2, 85+ ms R IN I/aVL/V5/V6] Compared to ECG 02/26/2025 16:00:25 First degree AV block now present Left bundle-branch block now present Atrial flutter no longer present Intraventricular conduction delay no longer present Myocardial infarct finding no longer present Electronically Signed On 02-27-2025 18:49:45 ASSEMBLING MACHINE OPERATOR by Yesenia Quezada M.D. [id number]
[2025-02-27 08:48] LABS: Hematocrit 48.0 % (37-53); Hemoglobin 15.60 g/dL (11.27-16.99); Mean Corpuscular HGB Conc 32.5 g/dL (30-55); Mean Corpuscular Hemoglobin 33.8 pg (27-33); Mean Corpuscular Volume 104.1 fl (82-101); Nucleated Red Blood Cells % 0 %; Platelet Count 241 10^3/cmm (157-399); Red Blood Count 4.61 10^6/uL (3.85-5.65); White Blood Count 8.84 10^3/uL (3.29-11.43)
[2025-02-27 09:14] LABS: Alanine Aminotransferase 22 U/L (0-41); Albumin Level 3.5 g/dL (3.5-5.2); Alkaline Phosphatase 143 U/L (40-130); Anion Gap 13.7 (5-19); Aspartate Amino Transferase 35 U/L (0-40); Blood Urea Nitrogen 25 mg/dL (8-23); Calcium 9.5 mg/dL (8.5-10.5); Carbon Dioxide 32 mmol/L (22-29); Chloride 93 mmol/L (98-107); Globulin 4.3 g/dL (1.3-4.6); Glucose 107 mg/dL (65-115); Magnesium 2.2 mg/dL (1.7-2.3); Osmolality Calculated 283 mOsm/kg (285-295); Potassium 4.7 mmol/L (3.5-5.1); Sodium 134 mmol/L (136-145); Total Protein 7.8 g/dL (6.6-8.7)
--- NOTE | 2025-02-27 10:39 | PC.SOCIAL ---
IMM Update pg 2 of IMM updated and reviewed w/ patient. Copy provided and copy dated, initialed and placed in chart.
--- NOTE | 2025-02-27 11:22 | ANES.PREANE2 ---
Pre-Anesthetic Assessment Height/Weight: Height 6 ft Weight 229 lb 15.074 oz Temp Pulse Resp BP Pulse Ox O2 Del Method O2 Flow Rate 97.7 F 87 21 H 110/65 95 Nasal Cannula 1 02/27/25 07:24 02/27/25 07:24 02/27/25 07:24 02/27/25 07:24 02/27/25 07:24 02/27/25 04:00 02/26/25 14:45 Preop Diagnosis: New onset of heart failure Operation Date: 02/24/25 06:00 Proposed Procedures p Cardiac Catheterization(Not Applicable) - Floridalma Williamson MD Was Beta Ammy taken within 24 hours: Yes Was Clonidine taken within 24 hours: N/A Social Alcohol and No tobacco Mixed drink every evening Anesthetic Plan ASA status: 4 Anesthesia: MAC Other: Patient recently had a cardioversion on 02/22/2025 which was successful from atrial flutter with RVR to sinus rhythm Patient is back in atrial fibrillation with RVR Acute hypoxic respiratory failure secondary to CHF exacerbation and fluid overload. Patient has been receiving Lasix and is on amiodarone Recent cath showing clear coronaries with EF estimated to be 40% Plan for MAC anesthesia Medications/Allergies Home Medications ?Medication ?Instructions ?Recorded ?Confirmed ?Last Taken ?Type doxycycline hyclate 100 mg capsule 100 mg PO DAILY 05/26/19 02/20/25 02/20/25 08:00 History rivaroxaban 20 mg tablet (Xarelto) 20 mg PO DAILY #90 tabs 03/02/21 02/20/25 02/20/25 08:00 Rx lisinopril 20 mg tablet 20 mg PO BID #30 tabs 11/17/21 02/20/25 02/20/25 08:00 Rx albuterol sulfate 90 mcg/actuation 2 inh inhalation Q6H PRN Wheezing 02/20/25 02/20/25 Unknown History aerosol inhaler (Ventolin HFA) budesonide 160 mcg-glycopyr 9 2 inh inhalation BID 02/20/25 02/20/25 02/19/25 History mcg-formot 4.8 mcg/actuation HFA inhaler (Breztri Aerosphere) metoprolol tartrate 50 mg tablet 50 mg PO BID 02/20/25 02/20/25 02/20/25 08:00 History Allergies Allergy/AdvReac Type Severity Reaction Status Date / Time No Known Allergies Allergy Unverified 05/26/19 10:35 Current Medications Generic Name Dose Route Start Last Admin Trade Name Freq PRN Reason Stop Dose Admin Acetaminophen 650 mg 02/20/25 12:55 02/26/25 21:01 Acetaminophen 325 Mg Tablet PO 650 mg Q6H PRN Administration Mild/Mod Pain Or Temp >/= 101 Albuterol Sulfate 2.5 mg 02/20/25 17:36 02/22/25 11:40 Albuterol 2.5 Mg/0.5 Ml Neb INHALATION 2.5 mg Q6H.RESP PRN Administration SHORTNESS OF BREATH Amiodarone HCl 400 mg 02/26/25 21:00 02/27/25 05:14 Amiodarone 200 Mg Tablet PO 400 mg TID MYLES Administration Artificial Tears 1 drop 02/22/25 10:01 02/22/25 16:35 Artificial Tears Op Soln 15 Ml Btl EYE-BOTH 1 drop Q4H PRN Administration DRY EYE(S) Aspirin 81 mg 02/20/25 16:15 02/27/25 05:14 Aspirin 81 Mg Ec Tablet PO 81 mg DAILY MYELS Administration Atorvastatin Calcium 40 mg 02/20/25 21:00 02/26/25 20:41 Atorvastatin 40 Mg Tablet PO 40 mg BEDTIME MYLES Administration Digoxin 125 mcg 02/27/25 05:00 02/27/25 05:14 Digoxin 125 Mcg Tablet PO 125 mcg DAILY MYLES Administration Enoxaparin Sodium 120 mg 02/21/25 05:00 02/27/25 05:15 Enoxaparin 120 Mg/0.8 Ml Syringe SUBCUT 120 mg Q12H MYLES Administration Furosemide 40 mg 02/22/25 13:00 02/27/25 05:15 Furosemide 10 Mg/Ml Sdv 4ml IVP 40 mg TID MYLES Administration Metoprolol Tartrate 75 mg 02/22/25 17:00 02/27/25 05:14 Metoprolol Tartrate 50 Mg Tablet PO 75 mg BID MYLES Administration Pantoprazole Sodium 40 mg 02/20/25 13:00 02/26/25 13:54 Pantoprazole 40 Mg Sdv IVP 40 mg Q24H MYLES Administration Potassium Chloride 20 meq 02/20/25 18:00 02/27/25 05:14 Potassium Chloride Er 20 Meq Tablet PO 20 meq Q12H MYLES Administration Sacubitril/Valsartan 1 each 02/24/25 17:00 02/25/25 06:11 Sacubitril/Valsartan 24-26 Mg Tablet PO 1 each On Hold: 02/25/25 13:42 BID MYLES Administration PFSH Anesthesia Medical History (Updated 02/22/25 @ 08:25 by Chet Sawyer MD) Osteoarthritis History of prostate cancer History of MRSA infection GERD (gastroesophageal reflux disease) Atrial fibrillation HTN (hypertension) Surgical History (Updated 11/30/22 @ 12:17 by JACKIE Marin) Previous back surgery S/P total knee arthroplasty bilateral History of lung surgery Had staph infection Family History Mother Congestive heart failure (CHF) Data Anesthesia 02/27/25 08:39 02/27/25 08:39 Short CBC 02/26/25 02/27/25 Range/Units 08:59 08:39 WBC 8.50 8.84 (3.29-11.43) 10^3/uL Hgb 15.90 15.60 (11.27-16.99) g/dL Hct 48.0 48.0 (37-53) % MCV 104.1 H 104.1 H (82-101) fl Plt Count 242 241 (157-399) 10^3/cmm Neut % (Auto) 73.4 66.6 % Neut # (Auto) 6.24 5.89 (1.8-7.7) 10^3/uL BMP 02/26/25 02/27/25 08:59 08:39 Sodium 137 134 L Potassium 4.2 4.7 Chloride 95 L 93 L Carbon Dioxide 33 H 32 H BUN 21 25 H Creatinine 1.1 1.0 Glucose 139 H 107 Calcium 9.4 9.5 Liver Function 02/27/25 Range/Units 08:39 Total Bilirubin 0.9 (0.15-1.2) mg/dL AST 35 (0-40) U/L ALT 22 (0-41) U/L Alkaline Phosphatase 143 H (40-130) U/L Albumin 3.5 (3.5-5.2) g/dL Cardiac Studies: Echocardiogram 02/20/25
--- NOTE | 2025-02-27 12:01 | P.PN_ITS ---
Subjective 2 Subjective: rate controlled bp stable Vitals/I&O/Wt Last Vital Signs Temp 97.7 F 02/27/25 07:24 Pulse 87 02/27/25 07:24 Resp 21 H 02/27/25 07:24 BP 110/65 02/27/25 07:24 Pulse Ox 95 02/27/25 07:24 O2 Del Method Nasal Cannula 02/27/25 04:00 O2 Flow Rate 1 02/26/25 14:45 02/26/25 02/27/25 02/27/25 22:59 06:59 14:59 Intake Total 240 / 840 Output Total 1000 / 2100 825 / 2925 Balance -760 / -1260 -825 / -2085 Weight last 48 hrs Weight 104.3 kg Weight 104.4 kg Physical Exam 2 Const: COMMON NORMALS: no acute distress and patient oriented x3 Resp: COMMON NORMALS: normal respiratory effort, No retractions and No use of accessory muscles AUSCULTATION: crackles Cardio: COMMON NORMALS: regular rate, regular rhythm, S1 normal heart sound present and S2 normal heart sound present RATE: regular rate RHYTHM: r egular rhythm HEART SOUNDS: S1 normal heart sound present and S2 normal heart sound present GI: COMMON NORMALS: Normal to inspection, nondistended, normoactive bowel sounds present and non-tender Extremity: NARRATIVE EXTREMITY EXAM: 1+ edema, right wrist band in place Neuro: COMMON NORMALS: patient oriented x3 Psych: COMMON NORMALS: mental status grossly normal Urinary Catheter Management: [place] Latex Free: Cath Placed During This Visit: yes Reason for Continuing Indwelling Catheter: Accurate Measurement of Urinary Output in Critically Ill Patients Urinary Catheter Date of Insertion: 02/20/25 Urinary Catheter Time of Insertion: 16:45 Data 02/27/25 08:39 02/27/25 08:39 A&P Assessment and plan 1. Atrial fibrillation with rapid ventricular response: 2. Acute on chronic systolic CHF (congestive heart failure): Plan: 1. Atrial fibrillation with rapid ventricular response: 2. Acute on chronic systolic CHF (congestive heart failure): Plan: Acute hypoxic respiratory failure - Secondary to CHF exacerbation, fluid overload - Monitor respiratory status closely - Lasix 40 IV TID with potassium placement therapy - Fluid restrictions of 1000 cc -cxr reviewed Atrial fibrillation with rapid ventricular response - Continue therapeutic Lovenox - Continue metoprolol - Amiodarone drip transitioned to p.o. amiodarone - cardioversion 02/22/2025--> repeat per cardiolgoy - digoxin hold, rate better NSTEMI CONCLUSIONS Normal left ventricular cavity size. Moderately reduced left ventricular systolic function with global hypokinesis, EF 39% Mild concentric left ventricular hypertrophy Stage II left ventricular diastolic dysfunction Normal right ventricular size and systolic function. Mild aortic valve stenosis Mild mitral valve regurgitation Plan -Aspirin, statin, beta-harlan, Lovenox -s/p heart cath . no intervention dc per cardiology PDMP PDMP Reviewed: Not Reviewed Attestations 2 Medical Necessity Statement*: cardiac monitoring Coding Level of Care Code 90540 Diagnoses Atrial fibrillation with rapid ventricular response I48.91 Acute on chronic systolic CHF (congestive heart failure) I50.23
--- NOTE | 2025-02-27 12:49 | P.PN_ITS ---
<Statement entered by Floridalma Williamson MD - 02/27/25 18:33> Patient was evaluated and cared for in conjunction with an advanced practice practitioner. I personally examined the patient and reviewed the chart and all pertinent data including imaging, telemetry, and laboratory results. I discussed the patient in detail with the advanced practice practitioner. Please see their note for complete H&P testing result and agreed upon plan of care for the patient. Subjective 2 Subjective: Patient feels better today. Currently in sinus rhythm. Rates are better controlled. Will cancel cardioversion for today due to patient now in sinus rhythm. Will discontinue dig. Due to level increased at 1.3 and patient's age. Continue amiodarone 400 3 times daily. Will switch patient from lovenox to Xarelto at this time. Patient responding well to diuresis and is -2445 over 24 hours and -14,099 over the hospital stay. Vitals/I&O/Wt Last Vital Signs Temp 97.7 F 02/27/25 07:24 Pulse 87 02/27/25 07:24 Resp 21 H 02/27/25 07:24 BP 110/65 02/27/25 07:24 Pulse Ox 95 02/27/25 07:24 O2 Del Method Room Air 02/27/25 10:00 O2 Flow Rate 1 02/26/25 14:45 02/26/25 02/27/25 02/27/25 22:59 06:59 14:59 Intake Total 240 / 840 Output Total 1000 / 2100 825 / 2925 Balance -760 / -1260 -825 / -2085 Weight last 48 hrs Weight 229 lb 15.074 oz Weight 230 lb 2.601 oz Physical Exam 2 Narrative: General: No apparent distress HENMT: normoceophalic Neck: No carotid bruit bilaterally Muskuloskeletal: Full ROM Respiratory: Normal respiratory effort, clear throughout all lung woodson, no use of accessory muscles Cardio: No JVD, regular rate, regular rhythm, S1 S2 normal, no murmurs, peripheral pulses 2+ radial palpated bilaterally GI: Normal to inspection, nondistended Extremities: Full ROM, normal, normal capillary refill, no cyanosis, 2+ pitting edema bilateral lower extremities Neuro: Alert and oriented x4, no focal motor deficits Psych: Affect normal, denies suicidal ideation, mental status grossly normal Skin: No rashes or lesions noted, no wounds Urinary Catheter Management: [place] Latex Free: Cath Placed During This Visit: yes Reason for Continuing Indwelling Catheter: Accurate Measurement of Urinary Output in Critically Ill Patients Urinary Catheter Date of Insertion: 02/20/25 Urinary Catheter Time of Insertion: 16:45 Data 02/27/25 08:39 02/27/25 08:39 A&P Assessment and plan 1. Atrial fibrillation with rapid ventricular response: 2. Acute on chronic systolic CHF (congestive heart failure): 3. HTN (hypertension): 4. History of cardioversion: 5. Atrial flutter: Plan: Plan is to continue diuresing patient. Continue Lasix 40 TID. He is diuresing well and -14. Decrease amio to 400 mg daily, Continue Metop. 75 BID. D/C digoxin due to increased level. Patient's shortness of breath has improved. NSR. Will hold Entresto for now due to hypotension. Patient may eat. If he continues to do well over night, he might be able to be disharged tomorrow. PDMP PDMP Reviewed: Not Reviewed Attestations 2 Medical Necessity Statement*: Deferred to primary Coding Level of Care Code Acute Code for [facility] [place] Fwd Diagnoses Atrial fibrillation with rapid ventricular response I48.91 Acute on chronic systolic CHF (congestive heart failure) I50.23 HTN (hypertension) I10 History of cardioversion Z92.89 Atrial flutter I48.92
[2025-02-27] MEDS: pantoprazole 40 mg SDV IVP (15:06)
--- NOTE | 2025-02-27 16:54 | PC.NURSE ---
ambulation pt ambulated down hallways using walker and standby assistance,. He walked 150 feet. HR maintains around upper 90s, Spo2- 92% on room air. Notified Dr Ponce that pt oxygen drop to 86% without oxygen while sleeping and recommend to him that pt might benefit for a sleep study outpatient at discharge.
[2025-02-28] VITALS (12 sets, daily range): BP systolic 98–116; BP diastolic 64–75; PULSE 77–107; RESP 18–30; TEMP 36.8–36.9; O2SAT 90–94; BMI 30.9
[2025-02-28 03:31] LABS: Digoxin 0.6 ng/mL (0.6-1.2)
[2025-02-28] MEDS: FUROsemide 10 mg/mL SDV 4mL 40 MG IVP (06:25)
--- NOTE | 2025-02-28 08:55 | ECG_ITS ---
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1945 Requested By: Sage Ponce Order Number: [id number] Keara MD: DONNIE GOLDBERG Measurements Intervals [place] Rate: 91 P: 238 SD: 250 QRS: -57 QRSD: 150 T: 107 QT: 389 QTc: 479 Interpretive Statements SINUS RHYTHM WITH FIRST DEGREE AV BLOCK LEFT AXIS DEVIATION [QRS AXIS < -30] LEFT BUNDLE BRANCH BLOCK [120+ ms QRS DURATION, 80+ ms Q/S IN V1/V2, 85+ ms R IN I/aVL/V5/V6] Compared to ECG 02/27/2025 08:38:00 No significant changes Electronically Signed On 02-28-2025 18:39:49 UNIVERSAL GRINDER TOOL by DONNIE GOLDBERG [id number] [id number]
--- NOTE | 2025-02-28 12:41 | P.DS_ITS ---
Discharge Providers Date of Admission: 02/20/25 11:23 Date of Discharge: February 28, 2025 Attending Provider at Admission: Calos Watt Attending Provider at Discharge: Sage Ponce MD Primary Care Provider: Sadie Peña Diagnoses at Discharge Discharge Diagnosis 1. Atrial fibrillation with rapid ventricular response: 2. Acute on chronic systolic CHF (congestive heart failure): 3. Essential hypertension: 4. History of cardioversion: 5. Atrial flutter: Reason for Visit Reason for Visit: Pressure on Chest SOB General swelling Hospital Course Hospital Course Jude Matson is a 79 year old male with a past medical history of CHF, atrial fibrillation, who presents to [facility] for shortness of breath, edema, increased abdominal distention, palpitations. Patient currently is alert oriented x 3, follows all commands, currently in A-fib with RVR heart rates in the 120s, complaining of shortness of breath, does report lower extremity edema, no chest pain, has palpitations, no lightness, dizziness no recent illness no fevers, no cough, follows with cardiology in [facility] Hospital course Patient admitted for A-fib CHF exacerbation. Underwent a heart cath on 02 24. Medications were adjusted with cardiology. His sats are stable on room air. His rhythm was stable. He was discharged in stable condition but recommended to follow-up with cardiology and PCP Physical Exam Const: COMMON NORMALS: no acute distress and patient oriented x3 Resp: COMMON NORMALS: normal respiratory effort, No retractions, No use of accessory muscles and clear to auscultation bilaterally AUSCULTATION: clear to auscultation bilaterally Cardio: COMMON NORMALS: regular rate, regular rhythm, S1 normal heart sound present and S2 normal heart sound present RATE: regular rate RHYTHM: regular rhythm HEART SOUNDS: S1 normal heart sound present and S2 normal heart sound present GI: COMMON NORMALS: Normal to inspection, nondistended, normoactive bowel sounds present and non-tender Extremity: NARRATIVE EXTREMITY EXAM: 1+ edema, right wrist band in place Neuro: COMMON NORMALS: patient oriented x3 Psych: COMMON NORMALS: mental status grossly normal Urinary Catheter Management: [place] Latex Free: Cath Placed During This Visit: yes Reason for Continuing Indwelling Catheter: Accurate Measurement of Urinary Output in Critically Ill Patients Urinary Catheter Date of Insertion: 02/20/25 Urinary Catheter Time of Insertion: 16:45 Discharge Data Studies Completed and Pending Completed Studies During Hospitalization Category Date Time Status 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 echo complete* [id number] Routine Ultrasound 02/20/25 12:55 Completed Pending at discharge Category Date Time Status CBC Auto Diff [Complete Blood Count w/Auto] AM LABS Lab 03/01/25 04:00 Ordered CMP [Comprehensive Metabolic Panel] AM LABS Lab 03/01/25 04:00 Ordered Radiology Impressions Chest X-Ray 02/26/25 11:58 IMPRESSION: 1. No acute cardiopulmonary finding. Laboratory Results WBC 8.84 10^3/uL (3.29-11.43) 02/27/25 08:39 RBC 4.61 10^6/uL (3.85-5.65) 02/27/25 08:39 Hgb 15.60 g/dL (11.27-16.99) 02/27/25 08:39 Hct 48.0 % (37-53) 02/27/25 08:39 MCV 104.1 fl (82-101) H 02/27/25 08:39 MCH 33.8 pg (27-33) H 02/27/25 08:39 MCHC 32.5 g/dL (30-55) 02/27/25 08:39 RDW 13.5 % (12.1-15.1) 02/27/25 08:39 Plt Count 241 10^3/cmm (157-399) 02/27/25 08:39 MPV 10.5 fL (7.4-10.4) H 02/27/25 08:39 Neut % (Auto) 66.6 % 02/27/25 08:39 Lymph % (Auto) 12.8 % 02/27/25 08:39 [place] % (Auto) 14.5 % 02/27/25 08:39 Eos % (Auto) 5.2 % 02/27/25 08:39 Baso % (Auto) 0.7 % 02/27/25 08:39 Neut # (Auto) 5.89 10^3/uL (1.8-7.7) 02/27/25 08:39 Lymph # (Auto) 1.1 10^3/uL (0.8-4.8) 02/27/25 08:39 [place] # (Auto) 1.3 10^3/uL (0.2-0.9) H 02/27/25 08:39 Eos # (Auto) 0.5 10^3/uL (0.0-0.8) 02/27/25 08:39 Baso # (Auto) 0.1 10^3/uL (0.0-0.1) 02/27/25 08:39 Nucleated RBC % (auto) 0 % 02/27/25 08:39 Nucleated RBCs # 0.0 /100WBC 02/27/25 08:39 Sodium 134 mmol/L (136-145) L 02/27/25 08:39 Potassium 4.7 mmol/L (3.5-5.1) 02/27/25 08:39 Chloride 93 mmol/L (98-107) L 02/27/25 08:39 Carbon Dioxide 32 mmol/L (22-29) H 02/27/25 08:39 Anion Gap 13.7 (5-19) 02/27/25 08:39 BUN 25 mg/dL (8-23) H 02/27/25 08:39 Creatinine 1.0 mg/dL (0.7-1.2) 02/27/25 08:39 GFR Calculation Not Reportable 02/27/25 08:39 Glucose 107 mg/dL (65-115) 02/27/25 08:39 Estimat Average Glucose 103 02/20/25 10:16 Hemoglobin A1c 5.2 % (4.0-6.0) 02/20/25 10:16 Calculated Osmolality 283 mOsm/kg (285-295) L 02/27/25 08:39 Calcium 9.5 mg/dL (8.5-10.5) 02/27/25 08:39 Magnesium 2.2 mg/dL (1.7-2.3) 02/27/25 08:39 Total Bilirubin 0.9 mg/dL (0.15-1.2) 02/27/25 08:39 AST 35 U/L (0-40) 02/27/25 08:39 ALT 22 U/L (0-41) 02/27/25 08:39 Alkaline Phosphatase 143 U/L (40-130) H 02/27/25 08:39 Troponin T Baseline 34 ng/L (0-15) H 02/20/25 10:16 Troponin T 120 Minute 31.11 ng/L (0-15) H 02/20/25 12:16 Delta Troponin T -2.89 ABS# (0-10) L 02/20/25 12:16 Troponin T Hi Sens 6Hr 34.74 ng/L (0-15) H 02/20/25 16:53 Troponin T Hi Sens 6Hr Delta 0.74 ng/L (0-12) 02/20/25 16:53 NT-Pro-B Natriuret Pep 2186 pg/mL (0-450) H 02/24/25 07:10 Total Protein 7.8 g/dL (6.6-8.7) 02/27/25 08:39 Albumin 3.5 g/dL (3.5-5.2) 02/27/25 08:39 Globulin 4.3 g/dL (1.3-4.6) 02/27/25 08:39 Triglycerides 67 mg/dL (0-150) 02/20/25 10:16 Cholesterol 123 mg/dL (0-200) 02/20/25 10:16 LDL Cholesterol, Calc 67 mg/dL (50-129) 02/20/25 10:16 HDL Cholesterol 43 mg/dL (60-100) L 02/20/25 10:16 LDL/HDL Ratio 1.56 RATIO (0.00-3.22) 02/20/25 10:16 Cholesterol/HDL Ratio 2.86 mg/dL (1.0-5.00) 02/20/25 10:16 Procalcitonin 0.04 ng/mL (0-0.5) 02/20/25 10:16 TSH 1.85 uIU/mL (0.27-4.20) 02/20/25 10:16 Digoxin 0.6 ng/mL (0.6-1.2) 02/28/25 03:04 Influenza A (PCR) Negative (Negative) 02/20/25 11:34 Influenza Type B (PCR) Negative (Negative) 02/20/25 11:34 RSV (PCR) Negative (Negative) 02/20/25 11:34 SARS-CoV-2 (PCR) Negative (Negative) 02/20/25 11:34 Vitals Last Vital Signs Temp 98.2 F 02/28/25 07:17 Pulse 95 02/28/25 11:25 Resp 18 02/28/25 11:25 BP 107/64 02/28/25 11:25 Pulse Ox 90 02/28/25 11:25 O2 Del Method Room Air 02/28/25 11:25 O2 Flow Rate 1 02/28/25 07:00 Discharge Plan Discharge Patient Disposition: Home Condition: Stable Prescriptions: New aspirin 81 mg Tablet,Delayed Release (Dr/Ec) 81 mg PO DAILY Qty: 30 0RF atorvastatin 40 mg Tablet 40 mg PO BEDTIME Qty: 30 0RF sacubitril-valsartan [Entresto] 24-26 mg Tablet 1 tab PO DAILY Qty: 30 0RF amiodarone [Pacerone] 200 mg Tablet 400 mg PO DAILY Qty: 30 1RF Continued metoprolol tartrate 50 mg tablet 50 mg PO BID albuterol sulfate [Ventolin HFA] 90 mcg/actuation HFA aerosol inhaler 2 inh INHALATION Q6H PRN (Reason: Wheezing) Breztri Aerosphere 160-9-4.8 mcg/actuation HFA aerosol inhaler 2 inh INHALATION BID Xarelto 20 mg tablet 20 mg PO DAILY Qty: 90 0RF Discontinued doxycycline hyclate 100 mg capsule 100 mg PO DAILY lisinopril 20 mg tablet 20 mg PO BID Qty: 30 0RF Discharge Order = DC NOW: Discharge Order (Routine); Ordered 02/28/25 Ordered By: Sage Ponce Referrals: Sadie Peña [Primary Care Provider, Family Practice] - 02/27/25 2:20 pm Jana Chavez FNP [Nurse Practitioner, Cardiology] - 03/11/25 3:00 pm Discharge Diet: Cardiac Patient Instructions: Aspirin (By mouth), Amiodarone (By mouth), Atorvastatin (By mouth), Sacubitril/Valsartan (By mouth), A-fib (Atrial Fibrillation) (DC), How to Stop Smoking (DC), Coronary Angioplasty (DC), Opioid Safety, Post Angiogram Home Care Instructions, Patient Portal & Shaunna Instructions Activity Restrictions/Additional Instructions: take medications as prescribed, followup with pcp and cardiology Discharge Attestations Time Spent in Discharge Care*: greater than 30 min Quality Metrics Clinical Quality Measures [ No reported AMI, CVA or VTE this stay] Coding Level of Care Code 14446 Diagnoses Atrial fibrillation with rapid ventricular response I48.91 Acute on chronic systolic CHF (congestive heart failure) I50.23 Essential hypertension I10 Hypertension type: essential hypertension History of cardioversion Z92.89 Atrial flutter I48.92
--- NOTE | 2025-02-28 13:00 | P.PN_ITS ---
Subjective 2 Subjective: Remains in sinus rhythm feeling better walking around had good diuresis appeared to be euvolemic Vitals/I&O/Wt Last Vital Signs Temp 98.2 F 02/28/25 07:17 Pulse 95 02/28/25 11:25 Resp 18 02/28/25 11:25 BP 107/64 02/28/25 11:25 Pulse Ox 90 02/28/25 11:25 O2 Del Method Room Air 02/28/25 11:25 O2 Flow Rate 1 02/28/25 07:00 02/27/25 02/28/25 02/28/25 22:59 06:59 14:59 Intake Total 860 / 1220 960 / 960 Output Total 2725 / 2725 720 / 3445 350 / 350 Balance -1865 / -1505 -720 / -2225 610 / 610 Weight last 48 hrs Weight 228 lb Weight 229 lb 15.074 oz Physical Exam 2 Const: COMMON NORMALS: alert OTHER: GENERAL: Patient is alert, awake and oriented x3. HEART: Regular S1 and S2. No murmur, rub or gallop. LUNGS: Clear to auscultate bilaterally. CENTRAL NERVOUS SYSTEM: Grossly nonfocal. EXTREMITIES: Lower extremities with out edema bilaterally. Resp: COMMON NORMALS: clear to auscultation bilaterally AUSCULTATION: clear to auscultation bilaterally Neuro: SENSORIUM/ORIENTATION: Yes alert Urinary Catheter Management: [place] Latex Free: Cath Placed During This Visit: yes Reason for Continuing Indwelling Catheter: Accurate Measurement of Urinary Output in Critically Ill Patients Urinary Catheter Date of Insertion: 02/20/25 Urinary Catheter Time of Insertion: 16:45 Data 02/27/25 08:39 02/27/25 08:39 A&P Assessment and plan 1. Atrial fibrillation with rapid ventricular response: 2. Acute on chronic systolic CHF (congestive heart failure): 3. Essential hypertension: 4. History of cardioversion: Plan: Digoxin was discontinued Continue amiodarone to 400 mg once a day Reduce metoprolol to 50 mg twice a day Reinitiate Entresto in the night as he was not tolerating blood pressure gutierrez twice a day dose Patient has mild crackles after Xarelto of the right radial without significant hematoma, site was 4 days old. Advised pressure bandage and no lifting with right hand for next 24 hours Continue Xarelto Follow-up with cardiology in 7 to 10 days Follow-up with Dr. Sawyer in 1 month PDMP PDMP Reviewed: Not Reviewed Attestations 2 Medical Necessity Statement*: From cardiovascular perspective patient can be discharged home Coding Level of Care Code Acute Code for Chg Fwd Diagnoses Atrial fibrillation with rapid ventricular response I48.91 Acute on chronic systolic CHF (congestive heart failure) I50.23 Essential hypertension I10 Hypertension type: essential hypertension History of cardioversion Z92.89
--- NOTE | 2025-02-28 14:26 | PC.NURSE ---
called in new prescriptions to [facility] in [place] since pt stated [facility] is close this weekend. call [facility] for all pt's new presribed medications.
== END 2025-02-28 14:26 | disposition home or self-care (01) | DRG 280 ==
LOC: ER 09:56 → CSU 11:42
PROVIDERS: Family Medicine; Internal Medicine Cardiovascular Disease; Nurse Practitioner Family; Admitting Provider Internal Medicine; Emergency Provider Physician Assistant; PCP Registered Nurse; Visit Provider Internal Medicine
PROC: B211YZZ Fluoroscopy of Multiple Coronary Arteries using Other Contrast (ICD-10-PCS; principal; 2025-02-24 06:00)
DX: I48.0 Paroxysmal atrial fibrillation (principal); I50.23 Acute on chronic systolic (congestive) heart failure; I21.4 Non-ST elevation (NSTEMI) myocardial infarction; J96.01 Acute respiratory failure with hypoxia; I48.92 Unspecified atrial flutter; G89.29 Other chronic pain; I25.10 Atherosclerotic heart disease of native coronary artery without angina pectoris; I11.0 Hypertensive heart disease with heart failure; M19.90 Unspecified osteoarthritis, unspecified site; K21.9 Gastro-esophageal reflux disease without esophagitis; Z96.653 Presence of artificial knee joint, bilateral; I35.0 Nonrheumatic aortic (valve) stenosis; Z79.51 Long term (current) use of inhaled steroids; Z79.02 Long term (current) use of antithrombotics/antiplatelets; Z85.46 Personal history of malignant neoplasm of prostate; Z86.14 Personal history of Methicillin resistant Staphylococcus aureus infection
CPT/HCPCS: 36415; 51702; 71045; 80048; 80053; 80061; 80162; 83036; 83735; 83880; 84145; 84443; 84484; 85025; 87637; 93005; 93306; 93458; 94640; 94664; 96372; 96374; 96375; 96376; 99152; 99153; 99285; A4222; C1769; C1887; C1894; J0282; J0283; J1160; J1644; J1650; J1938; J2250; J2371; J2470; J2704; J3010; J3490; J7030; J7611; J9999; Q0163; Q9967

== ENCOUNTER → 2025-03-05 16:16 | Outpatient (BNVA) | payer MEDICARE, SELFPAY | PROVIDERS: PCP Registered Nurse; Visit Provider Nurse Practitioner Family | DX: I48.92 Unspecified atrial flutter (principal); I11.0 Hypertensive heart disease with heart failure; I50.9 Heart failure, unspecified; I48.0 Paroxysmal atrial fibrillation; Z92.89 Personal history of other medical treatment; R00.0 Tachycardia, unspecified; I45.89 Other specified conduction disorders; R94.31 Abnormal electrocardiogram [ECG] [EKG] | CPT/HCPCS: 36415; 80048; 83880; 93005; 99214 ==